=== PATIENT | male | born 1960 | race Caucasian/White ===

== ENCOUNTER 2016-09-29 19:01 | Emergency (ER) | payer MEDICARE ==
[2016-09-29 19:01] VITALS: BMI 31.6
[2016-09-29 19:46] VITALS: RESP 16
[2016-09-29 20:13] LABS: BASO # 0.1 K/uL (0.0-0.2); EOS # 0.2 K/uL (0.0-0.7); EOS % 2.4 % (0.0-4.0); HEMATOCRIT 33.1 % (35.0-51.0); LYMPH # 2.1 K/uL (1.0-4.3); LYMPH % 20.3 % (20.0-40.0); MEAN CELL VOLUME 86.1 fL (80.0-94.0); MEAN CORPUSCULAR HEMOGLOBIN 28.9 pg (27.0-31.0); MEAN CORPUSCULAR HGB CONC 33.5 g/dL (33.0-37.0); MEAN PLATELET VOLUME 9.8 fL (7.2-11.7); MONO # 0.8 K/uL (0.0-0.8); RED CELL DISTRIBUTION WIDTH 13.1 % (11.5-14.5)
[2016-09-29 20:17] LABS: WHITE BLOOD COUNT 10.4 K/uL (4.8-10.8)
[2016-09-29 20:20] LABS: POTASSIUM 5.4 mmol/L (3.6-5.2)
[2016-09-29 20:22] LABS: ALB/GLOB RATIO 1.1 (1.0-2.1); BILIRUBIN,TOTAL 0.7 mg/dL (0.2-1.3); TOTAL PROTEIN 7.4 g/dL (6.3-8.3)
[2016-09-29 20:23] LABS: CALCIUM 9.2 mg/dl (8.6-10.4)
--- NOTE | 2016-09-29 20:32 | C.PDOC ---
History Of Present Illness 56 year old patient was instructed to visit the ER by Dr. Lopez after blood work showed a 6.2 potassium level. Patient had blood work done at an outpatient clinic today. Patient denies any physical complaints. Time Seen by Provider: 09/29/16 19:38 Chief Complaint (Nursing): Abnormal Labs History Per: Patient History/Exam Limitations: no limitations Onset/Duration Of Symptoms: Hrs (earlier today) Current Symptoms Are (Timing): Still Present Severity: None Pain Scale Rating Of: 0 Reports Recently: Treated By A Physician Recent travel outside of the [place]: No Past Medical History Reviewed: Historical Data, Nursing Documentation, Vital Signs Vital Signs: Last Vital Signs Temp 98.0 F 09/29/16 19:42 Pulse 92 H 09/29/16 19:42 Resp 16 09/29/16 19:42 BP 171/97 H 09/29/16 19:42 Pulse Ox 99 09/29/16 22:25 - Medical History PMH: Arthritis (hip, arms, neck), CHF, Diabetes, Fractures (left knee 1975), HTN , Hypercholesterolemia - [facility] Procedures CENTRAL VENOUS CATHETER PLACEMENT WITH GUIDANCE (08/01/13) INSERTION OF INFUSION DEV INTO SUP VENA CAVA, PERC APPROACH (02/28/16) LOC EXC BONE LESION NEC (08/30/13) LOC EXC LES METATAR/TAR (08/01/13) METATAR/TAR SEQUESTREC (08/01/13) NONEXCIS DEBRID OF WOUND, INFECT, OR BURN (08/30/13) TOT OSTECT-METATARS/TARS (05/04/13) Family History: States: Unknown Family Hx - Social History Hx Tobacco Use: Yes (light smoker) Hx Alcohol Use: No (Quit 16 years ago) Hx Substance Use: No (Quit 16 years ago) - Immunization History Hx Tetanus Toxoid Vaccination: No Hx Influenza Vaccination: Yes Hx Pneumococcal Vaccination: Yes Review Of Systems Except As Marked, All Systems Reviewed And Found Negative. Constitutional: Negative for: Fever Respiratory: Negative for: Shortness of Breath Gastrointestinal: Negative for: Abdominal Pain Physical Exam - Physical Exam Appears: Non-toxic, No Acute Distress, Other (comfortable) Skin: Warm, Dry Head: Atraumatic, Normacephalic Neck: Normal ROM, Supple Chest: Symmetrical Cardiovascular: Rhythm Regular Respiratory: Normal Breath Sounds, No Rales, No Rhonchi, No Wheezing Gastrointestinal/Abdominal: Soft, No Tenderness Back: Normal Inspection Extremity: Normal ROM, Other (left lower extremities has a dressing on it; chronic skin discoloration) Neurological/Psych: Oriented x3, Normal Motor, Normal Sensation Gait: Steady ED Course And Treatment - Laboratory Results Result Diagrams: 09/29/16 20:08 09/29/16 20:08 ECG: Interpreted By Me, Viewed By Me ECG Rhythm: Sinus Rhythm ECG Interpretation: Normal Interpretation Of ECG: Normal axis. No acute ST-T wave changes. Rate From EC (bpm) O2 Sat by Pulse Oximetry: 99 (room air) Pulse Ox Interpretation: Normal Progress Note: EKG was done and blood work was sent. Blood work results were reviewed. Case discussed with Dr. Lopez who agrees with discharge and will follow up with the patient in his office. - Physician Consult Information Physician Contacted: Rene Lopez Jr. Outcome Of Conversation: Discussed patient with Dr. Lopez, agrees with discharge home, would like patient to hold Zestril until seeing him in the office. Disposition Counseled Patient/Family Regarding: Studies Performed, Diagnosis, Need For Followup - Disposition Referrals: Rene Lopez Jr., MD [Medical Doctor] - Disposition: HOME/ ROUTINE Disposition Time: 22:10 Condition: STABLE Additional Instructions: FOLLOW UP WITH DR LOPEZ IN 1-2 DAYS HOLD YOUR ZESTRIL MEDICATION UNTIL YOU SEE HIM RETURN TO ER IF YOU HAVE ANY CONCERNING SYMPTOMS Instructions: Hyperkalemia (ED) Print Language: KOREAN - POA Present On Arrival: None - Clinical Impression Clinical Impression: Hyperkalemia, General medical exam - Scribe Statement The provider has reviewed the documentation as recorded by the Scribe Nadya Tyson Provider Attestation: All medical record entries made by the Scribe were at my direction and personally dictated by me. I have reviewed the chart and agree that the record accurately reflects my personal performance of the history, physical exam, medical decision making, and the department course for this patient. I have also personally directed, reviewed, and agree with the discharge instructions and disposition.
[2016-09-29 22:38] VITALS: BP 171/90; PULSE 88; TEMP 98.4; O2SAT 96
--- NOTE | 2016-10-01 12:05 | CARD ---
APPROVED REPORT EKG Measurement Heart [id number] <Conclusion> Normal sinus rhythm Normal ECG
== END 2016-09-29 22:38 | disposition home or self-care (01) ==
LOC: C.ER 19:01
DX: E87.5 Hyperkalemia (principal)

== ENCOUNTER 2016-10-22 07:53 | Inpatient (IN) | payer MEDICARE ==
[2016-10-19 11:58] VITALS: BMI 30.9
[2016-10-22] MEDS ORDERED: ceFAZolin IV 1 gm in Dextrose 0 GM/0 ML BAG IVPB ONE (08:47)
[2016-10-22] MEDS ORDERED: Bupivacaine HCl 0.25% PF (10 ml) Inj ONE (08:47)
[2016-10-22] MEDS ORDERED: Lidocaine 1% Inj (20ml) ONE (08:47)
[2016-10-22] MEDS ORDERED: Propofol 10 mg/ml Inj (20 ML) ONE ×2 (09:34)
[2016-10-22] MEDS ORDERED: Midazolam 2 MG/2 ML VIAL ONE (09:34)
[2016-10-22] MEDS ORDERED: Lactated Ringer's 1,000 ML IV ONE (09:45)
[2016-10-22] MEDS ORDERED: ceFAZolin IV 2 gm in Dextrose 1 GM/50 ML BAG IVPB ONE (09:45)
[2016-10-22] MEDS ORDERED: Sodium Chloride 0.9% 20 ML IV ONE (10:20)
[2016-10-22] MEDS ORDERED: HYDROmorphone 0.5 mg/0.5 ml ISec IVP PRN (10:41)
--- NOTE | 2016-10-22 11:02 | PCM.SURG1 ---
Surgeon's Initial Post Op Note - Surgeon's Notes Surgeon: Dr. Luciano DPM Packager: Dr. Rushing DPM PGY-1 Type of Anesthesia: IV Sedation, Local Anesthesia Administered By: Dr. Starr Pre-Operative Diagnosis: left hallux osteomyelitis Operative Findings: see dictation. I:15 mL 1:1 mixture of 0.25% lidocaine, 1% marcaine plain Post-Operative Diagnosis: same Operation Performed: left hallux amputation Specimen/Specimens Removed: left hallux Estimated Blood Loss: EBL {In ML}: 5 Blood Products Given: N/A Drains Used: [place] Post-Op Condition: Good Date of Surgery/Procedure: 10/22/16 Time of Surgery/Procedure: 11:02
[2016-10-22] MEDS ORDERED: Oxycodone/Acetaminophen 5/325 mg Tab PO PRN (11:04)
--- NOTE | 2016-10-22 14:16 | RAD ---
PROCEDURE: Left Foot Radiographs. HISTORY: s/p left hallux surgery COMPARISON: 02/28/2016 FINDINGS: BONES: Status post resection of the 1st distal phalanges and the most extreme aspect of the 1st metatarsal head. The sesamoid bones are present and unremarkable appearing there is a radiopaque high density probably relating to bandaging here in a material in bandaging overlying the postop since status. Overlying dorsal and volar soft tissue swelling this mid forefoot level is suggested. There is inferior splinting material present The inferior calcaneal spurs as before JOINTS: Normal. SOFT TISSUES: Normal. OTHER FINDINGS: None. IMPRESSION: Recent postop changes
--- NOTE | 2016-10-22 14:44 | PCM.OP ---
Operative Report - Operative Report Date of Surgery/Procedure: 10/22/16 Time of Surgery/Procedure: 09:45 Surgeon: Dr. Mustapha SOTO Electrician Outside: Dr. Kristan SOTO PGY-1 Anesthesia/Sedation: Dr. Starr/IV Sedation with local Pre-Operative Diagnosis: left hallux osteomyelitis Post-Operative Diagnosis: left hallux osteomyelitis Indication for Surgery: The patient is a 56 year-old male with the above diagnoses. The patient has exhausted all conservative treatment at this time and now requires surgical intervention. The patient signed the consent after careful explanation of risks, benefits, complication and alternatives for surgical procedure. No guarantees were given nor implied. Operative Findings: Preparation: The patient was brought in to the operating room and placed on the operating room table in a supine position. Timeout was performed for identification of the correct patient and procedure. After induction of IV sedation, the patient received a total of 15mL of 1:1 mixture of 1% lidocaine plain and 0.25% marcaine plain in a local block type fashion to the left 1st ray. Once local anesthesia was achieved, the left foot and ankle was then prepped and draped in normal sterile manner. Procedure 1:Left hallux amputation. Attention was directed to the left hallux where an incision was made circumferentially at the level of the 1st metatarsophalangeal joint using a #10 blade. The incision was then extended down through the subcutaneous layers down to the level of bone utilizing electrocaudry. The 1st digit was then disarticulated from the foot at the level of the 1st metatarsophalangeal joint. This specimen was then passed from the operative field and sent to pathology. Next,utilising a sagittal saw, the proximal aspect of the 1st metatarsal head was then resected and passed from the operative field and sent for pathology. The tendons were then transected at the level of the 1st MPJ and excised. The surgical site was then irrigated with copious amounts of normal sterile saline mixed with peroxide. All bleeders were ligated and cauterized as necessary. The subcutaneous tissue was reapproximated with #0 and #2-0 chromic, and skin layers were then re-approximated and using #3-0 nylon using a simple suture technique. The left foot was then dressed with xeroform, 4x4 gauze, then kerlix, and lastly ALCON. Procedure/Operation Description: left hallux amputation Estimated Blood Loss: 5 mL Complications: none Discharge & Condition: The patient tolerated the anesthesia and procedure well and was escorted to the recovery room with vital signs stable and neurovascular status intact to the left foot. Patient is to remain non-weight bearing to the left foot with a surgical shoe and walker. This patient will be follow in house by Dr. Luciano.
[2016-10-22] MEDS: (Novolin R) Insulin Human Regular 100 units/ml vial SC SCH ×2 (17:25→22:05)
--- NOTE | 2016-10-22 19:45 | CP.PCM.HP ---
History of Present Illness - History of Present Illness History of Present Illness: CC: post-op left hallux amputation HPI: 56 year old male with a past medical history of CHF, DM, HTN, Afib, hyperlipidemia, [place], and DVT, is post-op for left hallux amputation. Patient reports having osteomyelitis of the left hallux for about 6 to 7 months. He currently reports having no pain in his leg. Patient states his left lower extremity has been red and edematous (more than the right) for months due to the infection. He also reports his legs are edematous regularly. Patient denies symptoms of fevers, chills, headache, dizziness, chest pain, palpitations, abdominal pain, nausea, and vomiting. PMD: Dr. Dewitt PMHx: [place] (2015); DVT (2006), HTN, DM, HTN, CHF, HLD, Afib PSx: "about 13 surgeries on right foot"; FamHx: Mother- Breast cancer SocHx: tobacco/smoker (15 years); denies alcohol and drug use; lives with and children; retired Allergies: Vancomycin- anaphylasis Medications: Xarelto 20mg daily, ASA 81mg PO dialy, Imdur 60mg daily, Coreg 6.25mg PO BID, Januvet BID, Lyrica 75mg PO BID, Ambien 10mg daily, Percocet 10mg TID, Oxycontin 10mg BID, Toujeo 50 units daily, Mirapex 0.125mg HS. Present on Admission - Present on Admission Any Indicators Present on Admission: Yes History of DVT/PE: Yes Review of Systems - Constitutional Constitutional: absent: Headache, Weakness - EENT Eyes: absent: Change in Vision, Other Visual Disturbances Nose/Mouth/Throat: Dysphagia. absent: Sore Throat - Cardiovascular Cardiovascular: Leg Edema. absent: Chest Pain, Palpitations - Respiratory Respiratory: absent: Cough, Dyspnea - Gastrointestinal Gastrointestinal: absent: Abdominal Pain, Nausea, Vomiting - Musculoskeletal Musculoskeletal: Numbness (feet b/l), Tingling - Integumentary Integumentary: Swelling. absent: Rash - Neurological Neurological: Numbness. absent: Dizziness, Weakness - Endocrine Endocrine: absent: Fatigue, Palpitations - Hematologic/Lymphatic Hematologic: absent: Easy Bleeding, Easy Bruising Past Patient History - Infectious Disease Hx of Infectious Diseases: None - Past Medical History & Family History Past Medical History?: Yes - Past Social History Smoking Status: Heavy Smoker > 10 Cigarettes Daily - CARDIAC Hx Cardiac Disorders: Yes Hx Congestive Heart Failure: Yes Hx Heart Attack: Yes (2014) Hx Hypercholesterolemia: Yes Hx Hypertension: Yes Hx Peripheral Vascular Disease: Yes Other/Comment: HX: IVC FILTER-CLOT IN LEFT CALF AND LUNG - PULMONARY Hx Respiratory Disorders: Yes Hx Pulmonary Embolism: Yes (CT SCAN 03/11/17-LEFT LOWER LOBE) Other/Comment: LIGHT SMOKER - NEUROLOGICAL Hx Neurological Disorder: Yes Hx Paralysis: Yes (drop foot, left leg) - HEENT Hx HEENT Problems: No Other/Comment: wears glasses - RENAL Hx Chronic Kidney Disease: No - ENDOCRINE/METABOLIC Hx Endocrine Disorders: Yes Hx Diabetes Mellitus Type 1: Yes Hx Diabetes Mellitus Type 2: Yes - HEMATOLOGICAL/ONCOLOGICAL Hx Blood Disorders: No - INTEGUMENTARY Hx Dermatological Problems: Yes Other/Comment: Right foot ulcer - MUSCULOSKELETAL/RHEUMATOLOGICAL Hx Musculoskeletal Disorders: Yes Hx Arthritis: Yes (hip, arms, neck) Hx Back Pain: Yes Hx Falls: No Hx Fractures: Yes (left knee 1974) Hx Herniated Disk: Yes (lumbar x2, cervical x3) Hx Osteomyelitis: Yes (right foot) Other/Comment: torn LCL left knee. left hip seperation. rotator cuff seperated left shoulder - GASTROINTESTINAL Hx Gastrointestinal Disorders: No - GENITOURINARY/GYNECOLOGICAL Hx Genitourinary Disorders: No - PSYCHIATRIC Hx Psychophysiologic Disorder: No Hx Substance Use: No (Quit 16 years ago) - SURGICAL HISTORY Hx Surgeries: Yes Hx Cardiac Catheterization: Yes (2012 [facility]) Hx Orthopedic Surgery: Yes (removal of bones in right foot 04/2013 & 2011) Other/Comment: right Ulnar Collateral Ligament construction 1975,Vena Cava Filter to L LE,Lumbar Surgery in [facility],R foot Surgery by Dr.Den Castle - ANESTHESIA Hx Anesthesia: Yes Hx Anesthesia Reactions: No Hx Malignant Hyperthermia: No Has any member of the family had a problem w/ anesthesia?: No Meds Allergies/Adverse Reactions: Allergies Allergy/AdvReac Type Severity Reaction Status Date / Time vancomycin Allergy Severe SHORTNESS Verified 09/29/16 19:46 OF BREATH Physical Exam - Constitutional Appears: No Acute Distress - Head Exam Head Exam: NORMAL INSPECTION - Eye Exam Eye Exam: EOMI, Normal appearance - ENT Exam ENT Exam: Mucous Membranes Moist - Neck Exam Neck exam: Positive for: Normal Inspection - Respiratory Exam Respiratory Exam: Decreased Breath Sounds, NORMAL BREATHING PATTERN. absent: Rhonchi, Wheezes - Cardiovascular Exam Cardiovascular Exam: +S1, +S2 - GI/Abdominal Exam GI & Abdominal Exam: Normal Bowel Sounds, Soft. absent: Tenderness - Extremities Exam Extremities exam: Positive for: pedal edema (b/l). Negative for: normal inspection (LLE- erythematous, edematous) Additional comments: Neuropathy- feet b/l - Neurological Exam Neurological exam: Alert, Oriented x3 - Psychiatric Exam Psychiatric exam: Normal Affect, Normal Mood - Skin Skin Exam: Dry, Erythema (LLE- erythematous, edematous), Intact, Normal Color, Warm Results - Vital Signs Recent Vital Signs: Last Vital Signs Temp 98.4 F 10/22/16 15:45 Pulse 78 10/22/16 15:45 Resp 12 10/22/16 15:45 BP 136/82 10/22/16 15:45 Pulse Ox 98 10/22/16 15:45 - Labs Labs: Laboratory Results - last 24 hr 10/22/16 10/22/16 10/22/16 08:49 11:16 16:29 POC Glucose (mg/dL) 276 H 245 H 239 H Assessment & Plan (1) History of amputation of hallux Assessment and Plan: Patient is stable post-surgical amputation of left hallux on 10/22/16. Post-op shoe in place Weight bearing activity ordered Surgeon- Dr. Del Toro, help appreciated. F/U AM labs Status: Acute (2) Osteomyelitis of left foot Assessment and Plan: Patient is stable post-surgical amputation of left hallux on 10/22/16. Post-op shoe in place as per podiatry Weight bearing activity ordered as per podiatry Surgeon- Dr. Del Toro, help appreciated. Post-op foot xray- status post resection of 1st distal phalanges and most extreme aspect of 1st metatarsal head. Status: Acute (3) CHF (congestive heart failure) Assessment and Plan: Continue home medications as per Dr. Dewitt, no Lasix at this time. Coreg 6.25mg PO BID Status: Acute (4) A-fib Assessment and Plan: Monitor ASA 81mg PO daily Xarelto 20mg PO daily Continue home medications as per Dr. Dewitt Status: Acute (5) Diabetes Assessment and Plan: Continue home medications as per Dr. Dewitt Monitor HgbA1c Accuchecks QACHS Januvet BID Toujeo 50 units daily ISS SC ACHS Metformin 1000mg PO BID Mirapex 0.125mg at HS and Lyrica 75mg PO BID for neuropathy Status: Acute (6) Hypertension Assessment and Plan: Controlled As per Dr. Dewitt, continue home medication: Coreg 6.25mg PO BID, Imdur 60mg daily Monitor BP Status: Acute (7) Chronic pain Assessment and Plan: Continue home medications as per Dr. Dewitt Percocet 10mg TID Oxycontin 10mg BID Status: Acute (8) Insomnia Assessment and Plan: Continue home medication as per Dr. Dewitt Ambien 10mg PO daily Status: Acute (9) History of DVT (deep vein thrombosis) Assessment and Plan: Continue home medications as per Dr. Dewitt Xarelto 20mg daily ASA 81mg PO daily Patient has a hx of DVT in 2006; IVF in place Status: Acute (10) Prophylactic measure Assessment and Plan: IVC filter in place Continue home medication- ASA 81mg PO Daily, Xarelto 20mg PO daily Pepcid 20mg PO daily Heart healthy diet- consistent carbohydrate Weight bearing activity ordered as per Podiatry Status: Acute
[2016-10-22] MEDS: Lactated Ringer's 1,000 ML IV SCH (21:25)
[2016-10-23 07:33] LABS: BASO % 0.5 % (0.0-2.0); EOS # 0.1 K/uL (0.0-0.7); EOS % 1.2 % (0.0-4.0); LYMPH # 1.1 K/uL (1.0-4.3); LYMPH % 10.7 % (20.0-40.0); MEAN CELL VOLUME 86.3 fL (80.0-94.0); MEAN CORPUSCULAR HEMOGLOBIN 28.9 pg (27.0-31.0); MEAN CORPUSCULAR HGB CONC 33.4 g/dL (33.0-37.0); MEAN PLATELET VOLUME 10.5 fL (7.2-11.7); MONO # 1.1 K/uL (0.0-0.8); MONO % 10.9 % (0.0-10.0); RED CELL DISTRIBUTION WIDTH 13.2 % (11.5-14.5); WHITE BLOOD COUNT 10.1 K/uL (4.8-10.8)
[2016-10-23 08:29] LABS: CHLORIDE 109 mmol/L (98-107)
[2016-10-23 08:30] LABS: POTASSIUM 4.5 mmol/L (3.6-5.2); SODIUM 139 mmol/L (132-148)
[2016-10-23] MEDS: (Novolin R) Insulin Human Regular 100 units/ml vial SC SCH ×4 (08:30→22:20)
[2016-10-23 08:32] LABS: BILIRUBIN,TOTAL 0.4 mg/dL (0.2-1.3); CARBON DIOXIDE 21 mmol/L (22-30); GFR AFRICAN-AMERICAN > 60
[2016-10-23 08:33] LABS: ALB/GLOB RATIO 0.9 (1.0-2.1); ALKALINE PHOSPHATASE 92 U/L (38-126); ALT/SGPT 12 U/L (21-72); AST/SGOT 14 U/L (17-59); BLOOD UREA NITROGEN 22 mg/dL (9-20); CALCIUM 8.6 mg/dl (8.6-10.4); GLUCOSE,RANDOM 221 mg/dL (75-110); PHOSPHOROUS 3.1 mg/dL (2.5-4.5)
[2016-10-23 08:34] LABS: MAGNESIUM 1.3 mg/dL (1.6-2.3)
[2016-10-23] MEDS: Oxycodone/Acetaminophen 5/325 mg Tab PO PRN ×2 (09:44→22:34)
[2016-10-23] MEDS ORDERED: (Lantus) Insulin Glargine, Recombinant SC SCH (10:00)
--- NOTE | 2016-10-23 14:28 | CP.PCM.PN ---
<Clarissa Johnson - Last Filed: 10/23/16 16:24> Subjective - Date & Time of Evaluation Date of Evaluation: 10/23/16 Time of Evaluation: 14:25 - Subjective Subjective: Medicine Progress Note- Dr. Dewitt Service Patient was seen and examined at [facility] in no acute distress. Patient reports feeling well with no complaints. He reports feeling an "electric shock" at his amputation site a few times this morning. He also reports his right leg is less swollen than previously. Patient reports having a normal bowel movement today. Patient denies chest pain, palpitations, abdominal pain, nausea, vomiting, diarrhea, constipation, and fever. Objective - Vital Signs/Intake and Output Vital Signs (last 24 hours): Temp Pulse Resp BP Pulse Ox 99.1 F 88 20 149/79 94 L 10/23/16 07:00 10/23/16 07:00 10/23/16 07:00 10/23/16 07:00 10/23/16 07:00 Intake and Output: 10/23/16 10/23/16 06:59 18:59 Output Total 900 Balance -900 - Medications Medications: Current Medications Acetaminophen (Tylenol 325mg Tab) 650 mg PO Q6 PRN PRN Reason: Pain, Mild (1-3) Aspirin (Aspirin Chewable) 81 mg PO DAILY [facility] Last Admin: 10/23/16 09:33 Dose: 81 mg Carvedilol (Coreg) 6.25 mg PO BID [facility] Last Admin: 10/23/16 09:33 Dose: 6.25 mg Famotidine (Pepcid) 20 mg PO DAILY [facility] Last Admin: 10/23/16 09:33 Dose: 20 mg Lactated Ringer's (Lactated Ringer's) 1,000 mls @ 50 mls/hr IV .Q20H [facility] Last Admin: 10/22/16 21:25 Dose: 50 mls/hr Insulin Glargine (Lantus) 50 unit SC HS [facility] Insulin Human Regular (Novolin R) 0 unit SC ACHS [facility] PRN Reason: Protocol Last Admin: 10/23/16 12:45 Dose: 1 unit Isosorbide Mononitrate (Imdur) 60 mg PO DAILY [facility] Last Admin: 10/23/16 09:33 Dose: 60 mg Metformin HCl (Glucophage) 1,000 mg PO BID [facility] Last Admin: 10/23/16 09:33 Dose: 1,000 mg Oxycodone/Acetaminophen (Percocet 5/325 Mg Tab) 1 tab PO Q6H PRN PRN Reason: Pain, moderate (4-7) Stop: 10/25/16 11:05 Oxycodone/Acetaminophen (Percocet 5/325 Mg Tab) 2 tab PO Q6H PRN PRN Reason: Pain, severe (8-10) Stop: 10/25/16 11:05 Last Admin: 10/23/16 09:44 Dose: 2 tab Pramipexole Dihydrochloride (Mirapex) 0.125 mg PO HS [facility] Last Admin: 10/22/16 22:06 Dose: 0.125 mg Pregabalin (Lyrica) 75 mg PO BID [facility] Last Admin: 10/23/16 09:46 Dose: 75 mg Rivaroxaban (Xarelto) 20 mg PO DAILY [facility] Last Admin: 10/23/16 10:56 Dose: 20 mg Sitagliptin Phosphate (Januvia) 50 mg PO BID [facility] Last Admin: 10/23/16 09:32 Dose: 50 mg Zolpidem Tartrate (Ambien) 5 mg PO HS PRN PRN Reason: Insomnia - Labs Labs: 10/23/16 07:20 10/23/16 07:20 - Constitutional Appears: No Acute Distress - Head Exam Head Exam: NORMAL INSPECTION, NORMOCEPHALIC - Eye Exam Eye Exam: EOMI, Normal appearance - ENT Exam ENT Exam: Mucous Membranes Moist - Neck Exam Neck Exam: Full ROM, Normal Inspection - Respiratory Exam Respiratory Exam: Decreased Breath Sounds, NORMAL BREATHING PATTERN. absent: Rhonchi, Wheezes - Cardiovascular Exam Cardiovascular Exam: Irregular Rhythm, +S1, +S2 - GI/Abdominal Exam GI & Abdominal Exam: Soft, Normal Bowel Sounds. absent: Tenderness - Extremities Exam Extremities Exam: Pedal Edema (B/L), Tenderness (right LE). absent: Calf Tenderness - Neurological Exam Neurological Exam: Alert, Awake, Oriented x3 - Psychiatric Exam Psychiatric exam: Normal Affect, Normal Mood - Skin Skin Exam: Dry, Intact, Warm. absent: Normal Color (erythematous on right LE) Assessment and Plan (1) History of amputation of hallux Assessment & Plan: Patient is stable post-surgical amputation of left hallux on 10/23/16. Post-op shoe in place Weight bearing activity ordered- non-weight bearing Surgeon- Dr. Del Toro, help appreciated. Post-op foot xray- status post resection of 1st distal phalanges and most extreme aspect of 1st metatarsal head. As per Katey, may start antibiotics Status: Acute (2) Osteomyelitis of left foot Assessment & Plan: Patient is stable post-surgical amputation of left hallux on 10/23/16. Post-op shoe in place as per podiatry Weight bearing activity ordered as per podiatry- non weight bearing Surgeon- Dr. Del Toro, help appreciated. Post-op foot xray- status post resection of 1st distal phalanges and most extreme aspect of 1st metatarsal head. As per Katey, may start antibiotics Status: Acute (3) CHF (congestive heart failure) Assessment & Plan: Continue home medications as per Dr. Dewitt, no Lasix at this time. Coreg 6.25mg PO BID Status: Acute (4) A-fib Assessment & Plan: Monitor ASA 81mg PO daily Xarelto 20mg PO daily Continue home medications as per Dr. Dewitt Status: Acute (5) Diabetes Assessment & Plan: Continue home medications as per Dr. Dewitt HgbA1c 10.5 Accuchecks QACHS Januvet BID Toujeo 50 units HS (change on 10/23/16 from daily to HS) ISS SC ACHS Metformin 1000mg PO BID Mirapex 0.125mg at HS and Lyrica 75mg PO BID for neuropathy Status: Acute (6) Hypertension Assessment & Plan: Controlled BP 10/23/16 - 149/[address] Dewitt, continue home medication: Coreg 6.25mg PO BID, Imdur 60mg daily Monitor BP Status: Acute (7) Chronic pain Assessment & Plan: Continue home medications as per Dr. Dewitt Percocet 10mg TID Oxycontin 10mg BID Status: Acute (8) Insomnia Assessment & Plan: Continue home medication as per Dr. Dewitt Ambien 10mg PO daily Status: Acute (9) History of DVT (deep vein thrombosis) Assessment & Plan: Continue home medications as per Dr. Dewitt Xarelto 20mg daily ASA 81mg PO daily Patient has a hx of DVT in 2006; IVF in place Status: Acute (10) Prophylactic measure Assessment & Plan: IVC filter in place Continue home medication- ASA 81mg PO Daily, Xarelto 20mg PO daily Pepcid 20mg PO daily Heart healthy diet- consistent carbohydrate Weight bearing activity ordered- non weight bearing as per Podiatry Status: Acute <Rene Dewitt Jr. - Last Filed: 11/03/16 10:07> Objective - Vital Signs/Intake and Output Vital Signs (last 24 hours): Temp Pulse Resp BP Pulse Ox 98 F 80 18 163/86 H 95 10/26/16 07:45 10/26/16 07:45 10/26/16 07:45 10/26/16 07:45 10/26/16 07:45 - Labs Labs: 10/26/16 09:14 10/26/16 09:22 Attending/Attestation - Attestation I have personally seen and examined this patient.: Yes I have fully participated in the care of the patient.: Yes I have reviewed all pertinent clinical information, including history, physical exam and plan: Yes Notes (Text): 11/03/16 10:07 Agree with resident note and findings
[2016-10-23] MEDS: (Lantus) Insulin Glargine, Recombinant SC SCH (22:22)
[2016-10-24] MEDS: Lactated Ringer's 1,000 ML IV SCH (03:09)
[2016-10-24 07:37] LABS: BASO # 0.1 K/uL (0.0-0.2); BASO % 0.9 % (0.0-2.0); EOS # 0.3 K/uL (0.0-0.7); LYMPH # 1.5 K/uL (1.0-4.3); LYMPH % 17.3 % (20.0-40.0); MEAN CELL VOLUME 86.5 fL (80.0-94.0); MEAN CORPUSCULAR HEMOGLOBIN 28.8 pg (27.0-31.0); MEAN CORPUSCULAR HGB CONC 33.3 g/dL (33.0-37.0); MEAN PLATELET VOLUME 10.3 fL (7.2-11.7); RED CELL DISTRIBUTION WIDTH 13.2 % (11.5-14.5); WHITE BLOOD COUNT 8.7 K/uL (4.8-10.8)
[2016-10-24] MEDS: (Novolin R) Insulin Human Regular 100 units/ml vial SC SCH ×3 (07:50→21:49)
[2016-10-24 08:05] LABS: CHLORIDE 105 mmol/L (98-107); POTASSIUM 4.1 mmol/L (3.6-5.2); SODIUM 135 mmol/L (132-148)
[2016-10-24 08:07] LABS: AST/SGOT 13 U/L (17-59); BILIRUBIN,TOTAL 0.4 mg/dL (0.2-1.3); CARBON DIOXIDE 24 mmol/L (22-30); GFR AFRICAN-AMERICAN > 60
[2016-10-24 08:08] LABS: ALKALINE PHOSPHATASE 91 U/L (38-126); ALT/SGPT 19 U/L (21-72); BLOOD UREA NITROGEN 21 mg/dL (9-20); CALCIUM 8.6 mg/dl (8.6-10.4); GLUCOSE,RANDOM 168 mg/dL (75-110); PHOSPHOROUS 3.9 mg/dL (2.5-4.5); TOTAL PROTEIN 6.1 g/dL (6.3-8.3)
[2016-10-24 08:09] LABS: MAGNESIUM 1.3 mg/dL (1.6-2.3)
--- NOTE | 2016-10-24 08:34 | CP.PCM.PN ---
<David Gomes - Last Filed: 10/24/16 08:32> Subjective - Date & Time of Evaluation Date of Evaluation: 10/24/16 Time of Evaluation: 06:55 - Subjective Subjective: Medicine Progress Note- Dr. Dewitt Service Patient was seen and examined at [facility] in no acute distress. Patient reports feeling well with no complaints. He reports his right leg is less swollen than previously. He's not experiencing any pain. Patient reports having a normal bowel movement today. Patient denies chest pain, palpitations, abdominal pain, nausea, vomiting, diarrhea, constipation, and fever. Objective - Vital Signs/Intake and Output Vital Signs (last 24 hours): Temp Pulse Resp BP Pulse Ox 97.8 F 85 20 161/81 H 94 L 10/23/16 23:45 10/23/16 23:45 10/23/16 23:45 10/23/16 23:45 10/23/16 23:45 Intake and Output: 10/24/16 10/24/16 06:59 18:59 Output Total 300 Balance -300 - Medications Medications: Current Medications Acetaminophen (Tylenol 325mg Tab) 650 mg PO Q6 PRN PRN Reason: Pain, Mild (1-3) Aspirin (Aspirin Chewable) 81 mg PO DAILY [facility] Last Admin: 10/23/16 09:33 Dose: 81 mg Carvedilol (Coreg) 6.25 mg PO BID [facility] Last Admin: 10/23/16 17:46 Dose: 6.25 mg Famotidine (Pepcid) 20 mg PO DAILY [facility] Last Admin: 10/23/16 09:33 Dose: 20 mg Lactated Ringer's (Lactated Ringer's) 1,000 mls @ 50 mls/hr IV .Q20H [facility] Last Admin: 10/24/16 03:09 Dose: Not Given Insulin Glargine (Lantus) 50 unit SC HS [facility] Last Admin: 10/23/16 22:22 Dose: 50 u Insulin Human Regular (Novolin R) 0 unit SC ACHS [facility] PRN Reason: Protocol Last Admin: 10/24/16 07:50 Dose: 1 unit Isosorbide Mononitrate (Imdur) 60 mg PO DAILY [facility] Last Admin: 10/23/16 09:33 Dose: 60 mg Metformin HCl (Glucophage) 1,000 mg PO BID [facility] Last Admin: 10/23/16 17:47 Dose: 1,000 mg Oxycodone/Acetaminophen (Percocet 5/325 Mg Tab) 1 tab PO Q6H PRN PRN Reason: Pain, moderate (4-7) Stop: 10/25/16 11:05 Oxycodone/Acetaminophen (Percocet 5/325 Mg Tab) 2 tab PO Q6H PRN PRN Reason: Pain, severe (8-10) Stop: 10/25/16 11:05 Last Admin: 10/23/16 22:34 Dose: 2 tab Pramipexole Dihydrochloride (Mirapex) 0.125 mg PO HS [facility] Last Admin: 10/23/16 23:11 Dose: 0.125 mg Pregabalin (Lyrica) 75 mg PO BID [facility] Last Admin: 10/23/16 17:46 Dose: 75 mg Rivaroxaban (Xarelto) 20 mg PO DAILY [facility] Last Admin: 10/23/16 10:56 Dose: 20 mg Sitagliptin Phosphate (Januvia) 50 mg PO BID [facility] Last Admin: 10/23/16 17:48 Dose: 50 mg Zolpidem Tartrate (Ambien) 5 mg PO HS PRN PRN Reason: Insomnia Last Admin: 10/23/16 23:11 Dose: 5 mg - Labs Labs: 10/24/16 07:21 10/24/16 07:21 - Constitutional Appears: Well, Non-toxic, No Acute Distress - Head Exam Head Exam: NORMAL INSPECTION - Eye Exam Eye Exam: Normal appearance - ENT Exam ENT Exam: Mucous Membranes Moist - Neck Exam Neck Exam: Normal Inspection - Respiratory Exam Respiratory Exam: Clear to Ausculation Bilateral, NORMAL BREATHING PATTERN - Cardiovascular Exam Cardiovascular Exam: REGULAR RHYTHM - GI/Abdominal Exam GI & Abdominal Exam: Normal Bowel Sounds - Rectal Exam Rectal Exam: Deferred - Extremities Exam Extremities Exam: Pedal Edema, Tenderness - Neurological Exam Neurological Exam: Alert, Awake, Oriented x3 - Psychiatric Exam Psychiatric exam: Normal Affect, Normal Mood - Skin Skin Exam: Dry, Intact, Normal Color, Warm Assessment and Plan - Assessment and Plan (Free Text) Assessment: (1) History of amputation of hallux Assessment & Plan: Patient is stable post-surgical amputation of left hallux on 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 Post-op shoe in place Weight bearing activity ordered- non-weight bearing Surgeon- Dr. Del Toro, help appreciated. Post-op foot xray- status post resection of 1st distal phalanges and most extreme aspect of 1st metatarsal head. As per Katey, may start antibiotics Status: Acute (2) Osteomyelitis of left foot Assessment & Plan: Patient is stable post-surgical amputation of left hallux on 10/23/16. Post-op shoe in place as per podiatry Weight bearing activity ordered as per podiatry- non weight bearing Surgeon- Dr. Del Toro, help appreciated. Post-op foot xray- status post resection of 1st distal phalanges and most extreme aspect of 1st metatarsal head. As per Katey, may start antibiotics Status: Acute (3) CHF (congestive heart failure) Assessment & Plan: Continue home medications as per Dr. Dewitt, no Lasix at this time. Coreg 6.25mg PO BID Status: Acute (4) A-fib Assessment & Plan: Monitor ASA 81mg PO daily Xarelto 20mg PO daily Continue home medications as per Dr. Dewitt Status: Acute (5) Diabetes Assessment & Plan: Continue home medications as per Dr. Dewitt HgbA1c 10.5 Accuchecks QACHS Januvet BID Toujeo 50 units HS (change on 10/23/16 from daily to HS) ISS SC ACHS Metformin 1000mg PO BID Mirapex 0.125mg at HS and Lyrica 75mg PO BID for neuropathy Status: Acute (6) Hypertension Assessment & Plan: Controlled BP 10/23/16 - 149/[address] Dewitt, continue home medication: Coreg 6.25mg PO BID, Imdur 60mg daily Monitor BP Status: Acute (7) Chronic pain Assessment & Plan: Continue home medications as per Dr. Dewitt Percocet 10mg TID Oxycontin 10mg BID Status: Acute (8) Insomnia Assessment & Plan: Continue home medication as per Dr. Dewitt Ambien 10mg PO daily Status: Acute (9) History of DVT (deep vein thrombosis) Assessment & Plan: Continue home medications as per Dr. Dewitt Xarelto 20mg daily ASA 81mg PO daily Patient has a hx of DVT in 2006; IVF in place Status: Acute (10) Prophylactic measure Assessment & Plan: IVC filter in place Continue home medication- ASA 81mg PO Daily, Xarelto 20mg PO daily Pepcid 20mg PO daily Heart healthy diet- consistent carbohydrate Weight bearing activity ordered- non weight bearing as per Podiatry Status: Acute <Rene Dewitt Jr. - Last Filed: 11/03/16 10:11> Objective - Vital Signs/Intake and Output Vital Signs (last 24 hours): Temp Pulse Resp BP Pulse Ox 98 F 80 18 163/86 H 95 10/26/16 07:45 10/26/16 07:45 10/26/16 07:45 10/26/16 07:45 10/26/16 07:45 - Labs Labs: 10/26/16 09:14 10/26/16 09:22 Attending/Attestation - Attestation I have personally seen and examined this patient.: Yes I have fully participated in the care of the patient.: Yes I have reviewed all pertinent clinical information, including history, physical exam and plan: Yes Notes (Text): 11/03/16 10:11 Agree with resident note and findings
[2016-10-24] MEDS: Oxycodone/Acetaminophen 5/325 mg Tab PO PRN (10:18)
[2016-10-24] MEDS: (Lantus) Insulin Glargine, Recombinant SC SCH (21:48)
--- NOTE | 2016-10-25 02:54 | CP.PCM.PN ---
<David Gomes - Last Filed: 10/25/16 15:27> Subjective - Date & Time of Evaluation Date of Evaluation: 10/25/16 Time of Evaluation: 06:55 - Subjective Subjective: Medicine Progress Note- Dr. Dewitt Service Patient was seen and examined at [facility] in no acute distress. Patient reports feeling well with no complaints. He reports his right leg is less swollen than previously. He's not experiencing any pain. Patient reports having a normal bowel movement today. Patient denies chest pain, palpitations, abdominal pain, nausea, vomiting, diarrhea, constipation, and fever. Objective - Vital Signs/Intake and Output Vital Signs (last 24 hours): Temp Pulse Resp BP Pulse Ox 98.2 F 77 20 133/76 98 10/24/16 23:55 10/24/16 23:55 10/24/16 23:55 10/24/16 23:55 10/24/16 23:55 - Medications Medications: Current Medications Acetaminophen (Tylenol 325mg Tab) 650 mg PO Q6 PRN PRN Reason: Pain, Mild (1-3) Aspirin (Aspirin Chewable) 81 mg PO DAILY [facility] Last Admin: 10/24/16 10:03 Dose: 81 mg Carvedilol (Coreg) 6.25 mg PO BID [facility] Last Admin: 10/24/16 10:03 Dose: 6.25 mg Famotidine (Pepcid) 20 mg PO DAILY [facility] Last Admin: 10/24/16 10:03 Dose: 20 mg Lactated Ringer's (Lactated Ringer's) 1,000 mls @ 50 mls/hr IV .Q20H [facility] Last Admin: 10/24/16 03:09 Dose: Not Given Insulin Glargine (Lantus) 50 unit SC HS [facility] Last Admin: 10/24/16 21:48 Dose: 50 u Insulin Human Regular (Novolin R) 0 unit SC ACHS [facility] PRN Reason: Protocol Last Admin: 10/24/16 21:49 Dose: Not Given Isosorbide Mononitrate (Imdur) 60 mg PO DAILY [facility] Last Admin: 10/24/16 10:04 Dose: 60 mg Metformin HCl (Glucophage) 1,000 mg PO BID [facility] Last Admin: 10/24/16 10:04 Dose: 1,000 mg Oxycodone/Acetaminophen (Percocet 5/325 Mg Tab) 1 tab PO Q6H PRN PRN Reason: Pain, moderate (4-7) Stop: 10/25/16 11:05 Oxycodone/Acetaminophen (Percocet 5/325 Mg Tab) 2 tab PO Q6H PRN PRN Reason: Pain, severe (8-10) Stop: 10/25/16 11:05 Last Admin: 10/24/16 10:18 Dose: 2 tab Pramipexole Dihydrochloride (Mirapex) 0.125 mg PO HS [facility] Last Admin: 10/24/16 21:50 Dose: 0.125 mg Pregabalin (Lyrica) 75 mg PO BID [facility] Last Admin: 10/24/16 10:04 Dose: 75 mg Rivaroxaban (Xarelto) 20 mg PO DAILY [facility] Last Admin: 10/24/16 10:03 Dose: 20 mg Sitagliptin Phosphate (Januvia) 50 mg PO BID [facility] Last Admin: 10/24/16 10:04 Dose: 50 mg Zolpidem Tartrate (Ambien) 5 mg PO HS PRN PRN Reason: Insomnia Last Admin: 10/24/16 22:31 Dose: 5 mg - Labs Labs: 10/24/16 07:21 10/24/16 07:21 - Constitutional Appears: Well, Non-toxic, No Acute Distress - Head Exam Head Exam: NORMAL INSPECTION - Eye Exam Eye Exam: Normal appearance - ENT Exam ENT Exam: Mucous Membranes Moist - Neck Exam Neck Exam: Normal Inspection - Respiratory Exam Respiratory Exam: Clear to Ausculation Bilateral, NORMAL BREATHING PATTERN - Cardiovascular Exam Cardiovascular Exam: REGULAR RHYTHM, RRR, +S1, +S2 - GI/Abdominal Exam GI & Abdominal Exam: Soft, Normal Bowel Sounds - Rectal Exam Rectal Exam: Deferred - Extremities Exam Additional comments: gauze clean/dry/intact - Neurological Exam Neurological Exam: Alert, Awake, Oriented x3 - Psychiatric Exam Psychiatric exam: Normal Affect, Normal Mood - Skin Skin Exam: Dry, Intact, Normal Color, Warm Assessment and Plan - Assessment and Plan (Free Text) Assessment: Disposition: Waiting to go to subacute rehab (1) History of amputation of hallux Assessment & Plan: Patient is stable post-surgical amputation of left hallux on 10/23/16. Post-op shoe in place Weight bearing activity ordered- non-weight bearing Surgeon- Dr. Del Toro, help appreciated. Post-op foot xray- status post resection of 1st distal phalanges and most extreme aspect of 1st metatarsal head. As per Katey, may start antibiotics Status: Acute (2) Osteomyelitis of left foot Assessment & Plan: Patient is stable post-surgical amputation of left hallux on 10/23/16. Post-op shoe in place as per podiatry Weight bearing activity ordered as per podiatry- non weight bearing Surgeon- Dr. Del Toro, help appreciated. Post-op foot xray- status post resection of 1st distal phalanges and most extreme aspect of 1st metatarsal head. As per Katey, may start antibiotics Status: Acute (3) CHF (congestive heart failure) Assessment & Plan: Continue home medications as per Dr. Dewitt, no Lasix at this time. Coreg 6.25mg PO BID Status: Acute (4) A-fib Assessment & Plan: Monitor ASA 81mg PO daily Xarelto 20mg PO daily Continue home medications as per Dr. Dewitt Status: Acute (5) Diabetes Assessment & Plan: Continue home medications as per Dr. Dewitt HgbA1c 10.5 Accuchecks QACHS Januvet BID Toujeo 50 units HS (change on 10/23/16 from daily to HS) ISS SC ACHS Metformin 1000mg PO BID Mirapex 0.125mg at HS and Lyrica 75mg PO BID for neuropathy Status: Acute (6) Hypertension Assessment & Plan: Controlled BP 10/23/16 - 149/[address] Dewitt, continue home medication: Coreg 6.25mg PO BID, Imdur 60mg daily Monitor BP Status: Acute (7) Chronic pain Assessment & Plan: Continue home medications as per Dr. Dewitt Percocet 10mg TID Oxycontin 10mg BID Status: Acute (8) Insomnia Assessment & Plan: Continue home medication as per Dr. Dewitt Ambien 10mg PO daily Status: Acute (9) History of DVT (deep vein thrombosis) Assessment & Plan: Continue home medications as per Dr. Dewitt Xarelto 20mg daily ASA 81mg PO daily Patient has a hx of DVT in 2006; IVF in place Status: Acute (10) Prophylactic measure Assessment & Plan: IVC filter in place Continue home medication- ASA 81mg PO Daily, Xarelto 20mg PO daily Pepcid 20mg PO daily Heart healthy diet- consistent carbohydrate Weight bearing activity ordered- non weight bearing as per Podiatry Status: Acute <Rene Dewitt Jr. - Last Filed: 11/03/16 10:13> Objective - Vital Signs/Intake and Output Vital Signs (last 24 hours): Temp Pulse Resp BP Pulse Ox 98 F 80 18 163/86 H 95 10/26/16 07:45 10/26/16 07:45 10/26/16 07:45 10/26/16 07:45 10/26/16 07:45 - Labs Labs: 10/26/16 09:14 10/26/16 09:22 Attending/Attestation - Attestation I have personally seen and examined this patient.: Yes I have fully participated in the care of the patient.: Yes I have reviewed all pertinent clinical information, including history, physical exam and plan: Yes Notes (Text): 11/03/16 10:12 Agree with resident note and findings
[2016-10-25 08:00] LABS: BASO # 0.1 K/uL (0.0-0.2); EOS # 0.3 K/uL (0.0-0.7); EOS % 3.4 % (0.0-4.0); HEMATOCRIT 30.2 % (35.0-51.0); LYMPH # 1.3 K/uL (1.0-4.3); LYMPH % 15.7 % (20.0-40.0); MEAN CELL VOLUME 86.5 fL (80.0-94.0); MEAN CORPUSCULAR HEMOGLOBIN 28.5 pg (27.0-31.0); MEAN PLATELET VOLUME 10.4 fL (7.2-11.7); MONO # 0.7 K/uL (0.0-0.8); MONO % 8.7 % (0.0-10.0); RED CELL DISTRIBUTION WIDTH 13.1 % (11.5-14.5); WHITE BLOOD COUNT 8.4 K/uL (4.8-10.8)
[2016-10-25] MEDS: (Novolin R) Insulin Human Regular 100 units/ml vial SC SCH ×3 (08:00→21:59)
[2016-10-25 08:45] LABS: CHLORIDE 108 mmol/L (98-107); SODIUM 140 mmol/L (132-148)
[2016-10-25 08:46] LABS: POTASSIUM 4.1 mmol/L (3.6-5.2)
--- NOTE | 2016-10-25 08:46 | CP.PCM.PN ---
Subjective - Date & Time of Evaluation Date of Evaluation: 10/24/16 Time of Evaluation: 13:00 - Subjective Subjective: Patient is a 56 year old male seen at bedside 2 days s/p left hallux amputation. Patient states that his pain is decreased from yesterday. He denies any acute overnight events. Patient denies any further pedal complaints at this time. Patient denies N/V/F/C/CP/SOB Objective - Vital Signs/Intake and Output Vital Signs (last 24 hours): Temp Pulse Resp BP Pulse Ox 98.2 F 77 20 133/76 98 10/24/16 23:55 10/24/16 23:55 10/24/16 23:55 10/24/16 23:55 10/24/16 23:55 Intake and Output: 10/25/16 10/25/16 06:59 18:59 Output Total 300 Balance -300 - Medications Medications: Current Medications Acetaminophen (Tylenol 325mg Tab) 650 mg PO Q6 PRN PRN Reason: Pain, Mild (1-3) Aspirin (Aspirin Chewable) 81 mg PO DAILY [facility] Last Admin: 10/24/16 10:03 Dose: 81 mg Carvedilol (Coreg) 6.25 mg PO BID [facility] Last Admin: 10/24/16 10:03 Dose: 6.25 mg Famotidine (Pepcid) 20 mg PO DAILY [facility] Last Admin: 10/24/16 10:03 Dose: 20 mg Lactated Ringer's (Lactated Ringer's) 1,000 mls @ 50 mls/hr IV .Q20H [facility] Last Admin: 10/24/16 03:09 Dose: Not Given Insulin Glargine (Lantus) 50 unit SC HS [facility] Last Admin: 10/24/16 21:48 Dose: 50 u Insulin Human Regular (Novolin R) 0 unit SC ACHS [facility] PRN Reason: Protocol Last Admin: 10/24/16 21:49 Dose: Not Given Isosorbide Mononitrate (Imdur) 60 mg PO DAILY [facility] Last Admin: 10/24/16 10:04 Dose: 60 mg Metformin HCl (Glucophage) 1,000 mg PO BID [facility] Last Admin: 10/24/16 10:04 Dose: 1,000 mg Oxycodone/Acetaminophen (Percocet 5/325 Mg Tab) 1 tab PO Q6H PRN PRN Reason: Pain, moderate (4-7) Stop: 10/25/16 11:05 Oxycodone/Acetaminophen (Percocet 5/325 Mg Tab) 2 tab PO Q6H PRN PRN Reason: Pain, severe (8-10) Stop: 10/25/16 11:05 Last Admin: 10/24/16 10:18 Dose: 2 tab Pramipexole Dihydrochloride (Mirapex) 0.125 mg PO HS [facility] Last Admin: 10/24/16 21:50 Dose: 0.125 mg Pregabalin (Lyrica) 75 mg PO BID [facility] Last Admin: 10/24/16 10:04 Dose: 75 mg Rivaroxaban (Xarelto) 20 mg PO DAILY [facility] Last Admin: 10/24/16 10:03 Dose: 20 mg Sitagliptin Phosphate (Januvia) 50 mg PO BID [facility] Last Admin: 10/24/16 10:04 Dose: 50 mg Zolpidem Tartrate (Ambien) 5 mg PO HS PRN PRN Reason: Insomnia Last Admin: 10/24/16 22:31 Dose: 5 mg - Labs Labs: 10/25/16 07:47 10/24/16 07:21 - Constitutional Appears: Well, Non-toxic, No Acute Distress - Extremities Exam Additional comments: Left lower extremity exam: Vasc: DP/PT pulses palpable, CFT to surgical site < 3 seconds, skin temperature unremarkable Neuro: Epicritic and protective sensation grossly intact Derm: Incision site noted at level of distal left MTPJ. Sutures intact, incision site well coapted and no signs of dehiscence noted. Mild erythema and edema noted to the site. No malodor, purulent drainage or other signs of infection noted at this time. MSK: Left hallux amputation - Neurological Exam Neurological Exam: Alert, Awake, Oriented x3 - Psychiatric Exam Psychiatric exam: Normal Affect, Normal Mood Assessment and Plan - Assessment and Plan (Free Text) Assessment: 56 year old male with left hallux amputation secondary to osteomyelitis Plan: Patient seen and evaluated at bedside Labs and charts reviewed; afebrile, WBC 8.[address] Del Toro Dressed patients foot with wet to dry gauze, ABD, ALCON bandage Post op shoe in place Non WB to left side except for use of bathroom Continue abx Patient to be DC to [facility] Patient stable from podiatry standpoint
[2016-10-25 08:48] LABS: ALB/GLOB RATIO 0.9 (1.0-2.1); ALKALINE PHOSPHATASE 89 U/L (38-126); AST/SGOT 17 U/L (17-59); BILIRUBIN,TOTAL 0.4 mg/dL (0.2-1.3); BLOOD UREA NITROGEN 24 mg/dL (9-20); CARBON DIOXIDE 24 mmol/L (22-30); GFR AFRICAN-AMERICAN > 60; GLUCOSE,RANDOM 128 mg/dL (75-110); PHOSPHOROUS 3.8 mg/dL (2.5-4.5); TOTAL PROTEIN 6.3 g/dL (6.3-8.3)
[2016-10-25 08:49] LABS: ALT/SGPT 17 U/L (21-72); CALCIUM 8.7 mg/dl (8.6-10.4); MAGNESIUM 1.4 mg/dL (1.6-2.3)
[2016-10-25] MEDS: Magnesium Sulfate 1 gm in D5W 1 GM/100 ML BAG IVPB SCH ×3 (16:44→18:11)
[2016-10-25] MEDS: Piperacillin/Tazobact 3.375 GM in Sodium Chloride 100 ML IVPB SCH (18:12)
[2016-10-25] MEDS ORDERED: Oxycodone/Acetaminophen 5/325 mg Tab PO PRN ×2 (20:07)
[2016-10-25] MEDS: (Lantus) Insulin Glargine, Recombinant SC SCH (22:33)
[2016-10-26] MEDS: Piperacillin/Tazobact 3.375 GM in Sodium Chloride 100 ML IVPB SCH ×2 (00:07→08:28)
[2016-10-26] MEDS: (Novolin R) Insulin Human Regular 100 units/ml vial SC SCH ×2 (08:27→12:05)
--- NOTE | 2016-10-26 08:34 | CP.PCM.PN ---
Subjective - Date & Time of Evaluation Date of Evaluation: 10/26/16 Time of Evaluation: 08:32 - Subjective Subjective: Patient is a 56 year old male seen at bedside 4 days s/p left hallux amputation. Patient states that his pain is decreased from yesterday. He denies any acute overnight events. Patient denies any further pedal complaints at this time. Patient denies N/V/F/C/CP/SOB Objective - Vital Signs/Intake and Output Vital Signs (last 24 hours): Temp Pulse Resp BP Pulse Ox 98.6 F 92 H 20 144/85 96 10/26/16 00:00 10/26/16 00:00 10/26/16 00:00 10/26/16 00:00 10/26/16 00:00 - Medications Medications: Current Medications Acetaminophen (Tylenol 325mg Tab) 650 mg PO Q6 PRN PRN Reason: Pain, Mild (1-3) Aspirin (Aspirin Chewable) 81 mg PO DAILY [facility] Last Admin: 10/25/16 10:01 Dose: 81 mg Carvedilol (Coreg) 6.25 mg PO BID [facility] Last Admin: 10/25/16 18:18 Dose: 6.25 mg Famotidine (Pepcid) 20 mg PO DAILY [facility] Last Admin: 10/25/16 10:03 Dose: 20 mg Piperacillin Sod/Tazobactam (Sod 3.375 gm/ Sodium Chloride) 100 mls @ 200 mls/ hr IVPB Q8H [facility] Last Admin: 10/26/16 08:28 Dose: 200 mls/hr Insulin Glargine (Lantus) 50 unit SC HS [facility] Last Admin: 10/25/16 22:33 Dose: 50 u Insulin Human Regular (Novolin R) 0 unit SC ACHS [facility] PRN Reason: Protocol Last Admin: 10/26/16 08:27 Dose: 1 unit Isosorbide Mononitrate (Imdur) 60 mg PO DAILY [facility] Last Admin: 10/25/16 10:01 Dose: 60 mg Metformin HCl (Glucophage) 1,000 mg PO BID [facility] Last Admin: 10/25/16 18:18 Dose: 1,000 mg Oxycodone/Acetaminophen (Percocet 5/325 Mg Tab) 2 tab PO Q6H PRN PRN Reason: Pain, severe (8-10) Stop: 10/28/16 20:08 Last Admin: 10/25/16 20:27 Dose: 2 tab Oxycodone/Acetaminophen (Percocet 5/325 Mg Tab) 1 tab PO Q6H PRN PRN Reason: Pain, moderate (4-7) Stop: 10/28/16 20:08 Pramipexole Dihydrochloride (Mirapex) 0.125 mg PO HS [facility] Last Admin: 10/25/16 22:34 Dose: 0.125 mg Pregabalin (Lyrica) 75 mg PO BID [facility] Last Admin: 10/25/16 18:17 Dose: 75 mg Rivaroxaban (Xarelto) 20 mg PO DAILY [facility] Last Admin: 10/25/16 10:02 Dose: 20 mg Sitagliptin Phosphate (Januvia) 50 mg PO BID [facility] Last Admin: 10/25/16 18:18 Dose: 50 mg Zolpidem Tartrate (Ambien) 5 mg PO HS PRN PRN Reason: Insomnia Last Admin: 10/25/16 22:33 Dose: 5 mg - Labs Labs: 10/25/16 07:47 10/25/16 07:47 - Constitutional Appears: Well, Non-toxic, No Acute Distress - Extremities Exam Additional comments: Left lower extremity exam: Vasc: DP/PT pulses palpable, CFT to surgical site < 3 seconds, skin temperature unremarkable Neuro: Epicritic and protective sensation grossly intact Derm: Incision site noted at level of distal left MTPJ. Sutures intact, incision site well coapted and no signs of dehiscence noted. Mild erythema and edema noted to the site. No malodor, purulent drainage or other signs of infection noted at this time. MSK: Left hallux amputation - Neurological Exam Neurological Exam: Alert, Awake, Oriented x3 - Psychiatric Exam Psychiatric exam: Normal Affect, Normal Mood Assessment and Plan - Assessment and Plan (Free Text) Assessment: 56 year old male with left hallux amputation secondary to osteomyelitis Plan: Patient seen and evaluated at bedside Labs and charts reviewed; afebrile, absent leukocytosis Discussed plan with Dr. Del Toro Dressed patients foot with gauze, ABD, ALCON bandage Post op shoe in place Non WB to left side except for use of bathroom Continue abx Patient to be DC to [facility] Patient stable from podiatry standpoint
[2016-10-26 09:05] VITALS: BP 163/86; PULSE 80; RESP 18; TEMP 98; O2SAT 95
[2016-10-26 09:23] LABS: BASO % 0.7 % (0.0-2.0); EOS # 0.3 K/uL (0.0-0.7); EOS % 3.6 % (0.0-4.0); HEMATOCRIT 30.6 % (35.0-51.0); LYMPH # 0.9 K/uL (1.0-4.3); LYMPH % 11.8 % (20.0-40.0); MEAN CELL VOLUME 85.9 fL (80.0-94.0); MEAN CORPUSCULAR HEMOGLOBIN 28.5 pg (27.0-31.0); MEAN CORPUSCULAR HGB CONC 33.2 g/dL (33.0-37.0); MEAN PLATELET VOLUME 10.3 fL (7.2-11.7); MONO # 0.6 K/uL (0.0-0.8); MONO % 7.8 % (0.0-10.0); RED CELL DISTRIBUTION WIDTH 13.2 % (11.5-14.5); WHITE BLOOD COUNT 7.5 K/uL (4.8-10.8)
[2016-10-26 09:33] LABS: CHLORIDE 107 mmol/L (98-107); SODIUM 141 mmol/L (132-148)
[2016-10-26 09:34] LABS: POTASSIUM 4.3 mmol/L (3.6-5.2)
[2016-10-26 09:35] LABS: GFR AFRICAN-AMERICAN > 60
[2016-10-26 09:36] LABS: ALKALINE PHOSPHATASE 97 U/L (38-126); ALT/SGPT 14 U/L (21-72); AST/SGOT 17 U/L (17-59); BILIRUBIN,TOTAL 0.4 mg/dL (0.2-1.3); BLOOD UREA NITROGEN 26 mg/dL (9-20); CALCIUM 9.1 mg/dl (8.6-10.4); CARBON DIOXIDE 23 mmol/L (22-30); GLUCOSE,RANDOM 152 mg/dL (75-110); PHOSPHOROUS 3.8 mg/dL (2.5-4.5); TOTAL PROTEIN 6.8 g/dL (6.3-8.3)
[2016-10-26 09:37] LABS: MAGNESIUM 1.9 mg/dL (1.6-2.3)
--- NOTE | 2016-10-26 17:40 | CP.PCM.DIS ---
Provider - Provider Date of Admission: 10/22/16 13:23 Attending physician: Rene Dewitt Jr, MD Primary care physician: Dr. Dewitt Consults: Dr. Martinez Time Spent in preparation of Discharge (in minutes): 60 Diagnosis - Discharge Diagnosis (1) History of amputation of hallux Status: Acute Comment: Patient to rehab for 7 days to regain strength/mobility (2) CHF (congestive heart failure) Status: Acute Comment: stable, continue coreg (3) A-fib Status: Acute Comment: stable, follow up outpatient with Dr. Dewitt (4) Diabetes Status: Acute Comment: stable, continue medications (5) Hypertension Status: Acute Comment: stable, continue medications Hospital Course - Lab Results Lab Results: Most Recent Lab Values WBC 7.5 K/uL (4.8-10.8) 10/26/16 09:14 RBC 3.57 Mil/uL (4.40-5.90) L 10/26/16 09:14 Hgb 10.2 g/dL (12.0-18.0) L 10/26/16 09:14 Hct 30.6 % (35.0-51.0) L 10/26/16 09:14 MCV 85.9 fL (80.0-94.0) 10/26/16 09:14 MCH 28.5 pg (27.0-31.0) 10/26/16 09:14 MCHC 33.2 g/dL (33.0-37.0) 10/26/16 09:14 RDW 13.2 % (11.5-14.5) 10/26/16 09:14 Plt Count 181 K/uL (130-400) 10/26/16 09:14 MPV 10.3 fL (7.2-11.7) 10/26/16 09:14 Neut % (Auto) 76.1 % (50.0-75.0) H 10/26/16 09:14 Lymph % (Auto) 11.8 % (20.0-40.0) L 10/26/16 09:14 [place] % (Auto) 7.8 % (0.0-10.0) 10/26/16 09:14 Eos % (Auto) 3.6 % (0.0-4.0) 10/26/16 09:14 Baso % (Auto) 0.7 % (0.0-2.0) 10/26/16 09:14 Neut # 5.7 K/uL (1.8-7.0) 10/26/16 09:14 Lymph # 0.9 K/uL (1.0-4.3) L 10/26/16 09:14 [place] # 0.6 K/uL (0.0-0.8) 10/26/16 09:14 Eos # 0.3 K/uL (0.0-0.7) 10/26/16 09:14 Baso # 0.0 K/uL (0.0-0.2) 10/26/16 09:14 Sodium 141 mmol/L (132-148) 10/26/16 09:22 Potassium 4.3 mmol/L (3.6-5.2) 10/26/16 09:22 Chloride 107 mmol/L (98-107) 10/26/16 09:22 Carbon Dioxide 23 mmol/L (22-30) 10/26/16 09:22 Anion Gap 15 (10-20) 10/26/16 09:22 BUN 26 mg/dL (9-20) H 10/26/16 09:22 Creatinine 1.3 MG/DL (0.8-1.5) 10/26/16 09:22 Est GFR ( Amer) > 60 10/26/16 09:22 Est GFR (Non-Af Amer) 57 10/26/16 09:22 POC Glucose (mg/dL) 145 mg/dL (65-110) H 10/26/16 11:35 Random Glucose 152 mg/dL (75-110) H 10/26/16 09:22 Hemoglobin A1c 10.5 % (4.2-6.5) H D 10/23/16 07:20 Calcium 9.1 mg/dl (8.6-10.4) 10/26/16 09:22 Phosphorus 3.8 mg/dL (2.5-4.5) 10/26/16 09:22 Magnesium 1.9 mg/dL (1.6-2.3) 10/26/16 09:22 Total Bilirubin 0.4 mg/dL (0.2-1.3) 10/26/16 09:22 AST 17 U/L (17-59) 10/26/16 09:22 ALT 14 U/L (21-72) L 10/26/16 09:22 Alkaline Phosphatase 97 U/L (38-126) 10/26/16 09:22 Total Protein 6.8 g/dL (6.3-8.3) 10/26/16 09:22 Albumin 3.3 g/dL (3.5-5.0) L 10/26/16 09:22 Globulin 3.4 gm/dL (2.2-3.9) 10/26/16 09:22 Albumin/Globulin Ratio 1.0 (1.0-2.1) 10/26/16 09:22 - Hospital Course Hospital Course: "CC: post-op left hallux amputation HPI: 56 year old male with a past medical history of CHF, DM, HTN, Afib, hyperlipidemia, OH, and DVT, is post-op for left hallux amputation. Patient reports having osteomyelitis of the left hallux for about 6 to 7 months. He currently reports having no pain in his leg. Patient states his left lower extremity has been red and edematous (more than the right) for months due to the infection. He also reports his legs are edematous regularly. Patient denies symptoms of fevers, chills, headache, dizziness, chest pain, palpitations, abdominal pain, nausea, and vomiting." Patient is stable post-surgical amputation of left hallux on 10/22/[address] Del Toro. Post-op shoe in place. Weight bearing activity ordered. Xray showed recent post op changes. For CHF and HTN patient continued on Coreg 6.25mg PO BID and Imdur 60mg daily. For A. Fib patient on ASA 81mg PO daily, Xarelto 20mg PO daily. For diabetes patient had Accuchecks QACHS. Patient put on Januvet 30/ 1000 BID, Toujeo 50 units daily, ISS SC ACHS, Metformin 1000mg PO BID. Mirapex 0.125mg at HS and Lyrica 75mg PO BID for neuropathy. Patient kept on Percocet 10mg TID and Oxycontin 10mg BID for chronic pain. Patient on Xarelto 20mg daily because of history of DVTs. Patient had a normal bowel movement on 10/23. Physical therapy evaluated patient "PT W/ SLIGHTLY COMPROMISED BALANCE AND STABILITY; NEEDS CONSTANT CUES FOR WEIGHT BEARING PREACUTIONS; CLINICALLY EVOLVING PICTURE; WILL BENEFIT FROM SKILLED PT." Patient cleared for discharge by Dr. Dewitt. Patient cleared for discharge as per podiatry. Patient instructed to follow up with Dr. Dewitt one week after discharge. Patient should continue home medications and Zosyn IVPB for 7 more days after discharge. This is a summary of the hospital course. Please see chart for full details. Discharge Exam - Head Exam Head Exam: NORMAL INSPECTION - Eye Exam Eye Exam: EOMI, Normal appearance, PERRL - ENT Exam ENT Exam: Mucous Membranes Moist - Neck Exam Neck exam: Full Rom - Respiratory Exam Respiratory Exam: Clear to PA & Lateral, NORMAL BREATHING PATTERN, UNREMARKABLE. absent: Rales, Rhonchi, Wheezes, Respiratory Distress, Stridor - Cardiovascular Exam Cardiovascular Exam: REGULAR RHYTHM, RRR - GI/Abdominal Exam GI & Abdominal Exam: Normal Bowel Sounds. absent: Distended, Firm, Tenderness - Extremities Exam Extremities exam: full ROM Additional comments: dressing dry, clean, intact. sotero bandage wrapped over dressing - Neurological Exam Neurological exam: Alert, Oriented x3 - Psychiatric Exam Psychiatric exam: Normal Affect, Normal Mood - Skin Skin Exam: Intact, Normal Color, Warm Discharge Plan - Follow Up Plan Condition: GOOD Disposition: REHAB FACILITY/REHAB UNIT Instructions: Heart Failure (DC), How to Stop Smoking (DC), Heart Healthy Diet (DC), Osteomyelitis (DC), Chronic Pain (DC), Deep Venous Thrombosis (DC), Acute Wound Care (DC), Toe Amputation (DC) Additional Instructions: Please discharge patient to [facility] as per Dr. Dewitt. Please continue home medication as per medication reconciliation list. Patient will need to be on Zosyn IVPB for 7 more days after discharge. Patient to follow up with Dr. Dewitt (primary doctor) within 1 week of discharge. Patient to follow up with Dr. Del Toro (electric organ checker) within one week. Please return to the emergency room if symptoms return. Referrals: Sylvester Del Toro DPM [Doctor Podiatric Medicine] - Rene Dewitt Jr., MD [Family Provider] -
== END 2016-10-26 15:30 | DRG 617 ==
LOC: C.SDS 07:53 → C.9S 11:04 → OBSVTOIN 13:23 → C.6T 20:57
PROVIDERS: ADMIT Internal Medicine; ATTEND Internal Medicine
PROC: 0Y6Q0Z0 Detachment at Left 1st Toe, Complete, Open Approach (ICD-10-PCS; principal; 2016-10-22 09:45)
DX: E11.69 Type 2 diabetes mellitus with other specified complication (principal); M86.9 Osteomyelitis, unspecified; I11.0 Hypertensive heart disease with heart failure; I50.9 Heart failure, unspecified; I48.91 Unspecified atrial fibrillation; E78.5 Hyperlipidemia, unspecified; G62.9 Polyneuropathy, unspecified; Z80.3 Family history of malignant neoplasm of breast; F17.200 Nicotine dependence, unspecified, uncomplicated; G47.00 Insomnia, unspecified; G89.29 Other chronic pain; I25.2 Old myocardial infarction; Z79.84 Long term (current) use of oral hypoglycemic drugs; Z83.3 Family history of diabetes mellitus

== ENCOUNTER 2016-11-23 13:12 | Emergency (ER) | payer MEDICARE ==
[2016-11-23 13:13] VITALS: BMI 30.9
[2016-11-23 13:23] VITALS: BP 134/82; PULSE 89; RESP 20; TEMP 98.3; O2SAT 96
--- NOTE | 2016-11-23 15:01 | C.PDOC ---
History Of Present Illness 56 y/o male sent to emergency department by tv host Dr Del Toro for evaluation of possible infection to left foot. Pt is s/p left great toe amputation. Pt sts, " my tv host feels it might be infected, healing poorly and sent me here". Otherwise, pt denies fever, chills, redness or extensive drainage from the wound, denies chest pain, SOB, dsypnea, diaphoresis, palpitation, denies weakness, sensory or vascular deficits to B/L LEs, denies B/ L calf pain or any other complaints. PMD Esdras. Time Seen by Provider: 11/23/16 14:27 Chief Complaint (Nursing): Medical Clearance History Per: Patient History/Exam Limitations: no limitations Severity: Mild Reports Recently: Treated By A Physician Recent travel outside of the [place]: No Past Medical History Reviewed: Historical Data, Nursing Documentation, Vital Signs Vital Signs: Last Vital Signs Temp 98.3 F 11/23/16 13:18 Pulse 89 11/23/16 13:18 Resp 20 11/23/16 13:18 BP 134/82 11/23/16 13:18 Pulse Ox 96 11/23/16 15:24 - Medical History PMH: Arthritis (hip, arms, neck), CHF, Diabetes, Fractures (left knee 1975), HTN , Hypercholesterolemia, Pulmonary Embolism (CT SCAN 03/11/17-LEFT LOWER LOBE) - [facility] Procedures CENTRAL VENOUS CATHETER PLACEMENT WITH GUIDANCE (08/01/13) DETACHMENT AT LEFT 1ST TOE, COMPLETE, OPEN APPROACH (10/22/16) INSERTION OF INFUSION DEV INTO SUP VENA CAVA, PERC APPROACH (02/28/16) LOC EXC BONE LESION NEC (08/30/13) LOC EXC LES METATAR/TAR (08/01/13) METATAR/TAR SEQUESTREC (08/01/13) NONEXCIS DEBRID OF WOUND, INFECT, OR BURN (08/30/13) TOT OSTECT-METATARS/TARS (05/04/13) Family History: States: Unknown Family Hx - Social History Hx Tobacco Use: Yes (light smoker) Hx Alcohol Use: No (over 17 years ago) Hx Substance Use: No (over 17 years ago) - Immunization History Hx Tetanus Toxoid Vaccination: Yes Hx Influenza Vaccination: Yes Hx Pneumococcal Vaccination: Yes Review Of Systems Except As Marked, All Systems Reviewed And Found Negative. Constitutional: Negative for: Fever, Chills Cardiovascular: Negative for: Chest Pain Respiratory: Negative for: Shortness of Breath Musculoskeletal: Positive for: Other (possible left foot infection). Negative for: Leg Pain Neurological: Negative for: Weakness, Numbness Physical Exam - Physical Exam Appears: Well, Non-toxic, No Acute Distress Skin: Warm, Dry, No Rash Oral Mucosa: Moist Throat: No Drooling Neck: Supple Cardiovascular: Rhythm Regular Respiratory: No Decreased Breath Sounds, No Accessory Muscle Use, No Rales, No Rhonchi, No Stridor, No Wheezing Gastrointestinal/Abdominal: Soft, No Tenderness Extremity: No Tenderness, No Calf Tenderness (B/L), Capillary Refill (less than 2sec to left foot), No Deformity, Other (Left foot great toe amputation. Wound closed with sutures in place, slightly open, appears clean. No drainage, erythema or significant tenderness.) Neurological/Psych: Oriented x3, Normal Speech, Normal Cognition, Normal Motor, Normal Sensation, Normal Reflexes ED Course And Treatment - Laboratory Results Result Diagrams: 11/23/16 15:35 11/23/16 15:35 Lab Interpretation: Abnormal O2 Sat by Pulse Oximetry: 96 (room air) Pulse Ox Interpretation: Normal Progress Note: After my initial assessment, pt appears fine. Diagnostics review and abnormal blood work noted: hyperkalemia, hyperglycemia. Tx order, EKG requested. Case was discussed with and admission arranged. As per RN, tried to explained findings and pt became agitated and refuses tx and wish to leave. At 15:20, went to bedside to explain the blood results, pt would not listen, becae combative and abusive, screaming, cursing at me, RN and other medical staff. Pt was asked to leave ED and return at any time for re- evaluation. Disposition - Disposition Disposition: AGAINST MEDICAL ADVICE Disposition Time: 15:24 Condition: STABLE Forms: [facility] (Georgian) - Clinical Impression Clinical Impression: Hyperkalemia, Osteomyelitis of left foot, Diabetes - PA / CASING IN LINE FEEDER / Resident Statement MD/DO has reviewed & agrees with the documentation as recorded. - Scribe Statement The provider has reviewed the documentation as recorded by the Scribe Anam Andrade All medical record entries made by the Scribe were at my direction and personally dictated by me. I have reviewed the chart and agree that the record accurately reflects my personal performance of the history, physical exam, medical decision making, and the department course for this patient. I have also personally directed, reviewed, and agree with the discharge instructions and disposition.
[2016-11-23 15:39] LABS: BASO # 0.1 K/uL (0.0-0.2); EOS # 0.2 K/uL (0.0-0.7); EOS % 3.4 % (0.0-4.0); HEMOGLOBIN 10.1 g/dL (12.0-18.0); LYMPH # 1.4 K/uL (1.0-4.3); LYMPH % 20.6 % (20.0-40.0); MEAN CELL VOLUME 87.2 fL (80.0-94.0); MEAN CORPUSCULAR HEMOGLOBIN 29.4 pg (27.0-31.0); MEAN CORPUSCULAR HGB CONC 33.8 g/dL (33.0-37.0); MEAN PLATELET VOLUME 10.1 fL (7.2-11.7); MONO # 0.6 K/uL (0.0-0.8); MONO % 8.9 % (0.0-10.0); NEUT # 4.4 K/uL (1.8-7.0); NEUT % 66.1 % (50.0-75.0); RBC 3.44 Mil/uL (4.40-5.90); RED CELL DISTRIBUTION WIDTH 13.8 % (11.5-14.5); WHITE BLOOD COUNT 6.6 K/uL (4.8-10.8)
[2016-11-23 15:47] LABS: INR 1.1; PROTHROMBIN TIME 12.7 SECONDS (9.7-12.2)
[2016-11-23 16:01] LABS: CALCIUM 8.7 mg/dl (8.6-10.4)
[2016-11-23] MEDS ORDERED: Dextrose 50% SYRINGE Inj (50 ml) IV STA (16:17)
[2016-11-23 16:18] LABS: URINE BILIRUBIN NEGATIVE (NEGATIVE); URINE CLARITY Clear (Clear); URINE COLOR Yellow (YELLOW); URINE GLUCOSE (UA) 1+ mg/dL (Normal); URINE LEUKOCYTE ESTERASE NEG Leu/uL (Negative); URINE NITRATE NEGATIVE (NEGATIVE); URINE PROTEIN 2+ mg/dL (NEGATIVE); URINE UROBILINOGEN NORMAL mg/dL (0.2-1.0)
[2016-11-23] MEDS ORDERED: (Novolin R) Insulin Human Regular 100 units/ml vial IV ONE (16:18)
[2016-11-23] MEDS ORDERED: Sod Polystyrene Sulf 15 gm/60 ml Oral Susp PO ONE (16:19)
[2016-11-23] MEDS ORDERED: Sod Polystyrene Sulf 15 gm/60 ml Oral Susp ONE (16:26)
[2016-11-23] MEDS ORDERED: (Novolog) Insulin Aspart, Recombinant 100 u/ml 10 ml vial ONE (16:26)
[2016-11-23] MEDS ORDERED: Dextrose 50% SYRINGE Inj (50 ml) ONE (16:27)
[2016-11-23 16:57] LABS: URINE BLOOD TRACE (NEGATIVE)
--- NOTE | 2016-11-23 17:38 | RAD ---
PROCEDURE: Left Foot Radiographs. HISTORY: chronic ulcer, pain r/o osteo COMPARISON: None available. FINDINGS: BONES: Status post dissection of the 1st phalanx at the level of the distal 1st metatarsal head similar to prior study. No acute displaced fracture. JOINTS: No dislocation. SOFT TISSUES: Soft tissue swelling. Evidence of soft tissue ulceration at the level of the distal 1st phalanx soft tissues. No evidence of radiopaque foreign body. OTHER FINDINGS: None. IMPRESSION: Soft tissue swelling. Evidence of soft tissue ulceration at the level of the distal 1st phalanx soft tissues. Correlate clinically. Status post dissection of the 1st phalanx at the level of the distal 1st metatarsal head ; appearance similar to prior study.
== END 2016-11-23 17:04 | disposition left against medical advice (07) ==
LOC: C.ER 13:12
DX: E11.69 Type 2 diabetes mellitus with other specified complication (principal); M86.8X7 Other osteomyelitis, ankle and foot; E87.5 Hyperkalemia

== ENCOUNTER 2016-12-02 07:55 | Emergency (ER) | payer MEDICARE ==
[2016-12-02 07:56] VITALS: BMI 30.9
--- NOTE | 2016-12-02 09:05 | C.PDOC ---
History Of Present Illness 56 y/o male sent by top former Dr. Molina for PIC insertion and bloodwork. Pt with history of diabetes, and multiple foot surgeries, including amputations. Patient sent for concern over possible infection. Denies fevers. Patient also reports history of CHF, PE's, drop foot left side. Time Seen by Provider: 12/02/16 08:15 Chief Complaint (Nursing): Medical Clearance History Per: Patient History/Exam Limitations: no limitations Onset/Duration Of Symptoms: Days Current Symptoms Are (Timing): Still Present Recent travel outside of the [place]: No Past Medical History Reviewed: Historical Data, Nursing Documentation, Vital Signs Vital Signs: Last Vital Signs Temp 97.5 F L 12/02/16 13:37 Pulse 72 12/02/16 13:37 Resp 14 12/02/16 13:37 BP 172/94 H 12/02/16 13:37 Pulse Ox 97 12/02/16 13:47 - Medical History PMH: Arthritis (hip, arms, neck), Back Problems, CHF, Diabetes, Fractures (left knee 1975), HTN, Hypercholesterolemia, Pulmonary Embolism (CT SCAN 03/11/17- LEFT LOWER LOBE) - [facility] Procedures CENTRAL VENOUS CATHETER PLACEMENT WITH GUIDANCE (08/01/13) DETACHMENT AT LEFT 1ST TOE, COMPLETE, OPEN APPROACH (10/22/16) INSERTION OF INFUSION DEV INTO SUP VENA CAVA, PERC APPROACH (02/28/16) LOC EXC BONE LESION NEC (08/30/13) LOC EXC LES METATAR/TAR (08/01/13) METATAR/TAR SEQUESTREC (08/01/13) NONEXCIS DEBRID OF WOUND, INFECT, OR BURN (08/30/13) TOT OSTECT-METATARS/TARS (05/04/13) Family History: States: Unknown Family Hx - Social History Hx Tobacco Use: Yes (light smoker) Hx Alcohol Use: No (over 17 years ago) Hx Substance Use: No (over 17 years ago) - Immunization History Hx Tetanus Toxoid Vaccination: Yes Hx Influenza Vaccination: Yes Hx Pneumococcal Vaccination: Yes Review Of Systems Except As Marked, All Systems Reviewed And Found Negative. Constitutional: Negative for: Fever, Chills Respiratory: Negative for: Cough, Shortness of Breath Skin: Positive for: Lesions (left foot). Negative for: Rash Neurological: Negative for: Numbness, Headache Physical Exam - Physical Exam Appears: Non-toxic, No Acute Distress Skin: Warm, Dry Head: Atraumatic, Normacephalic Eye(s): bilateral: Normal Inspection, PERRL, EOMI Ear(s): Bilateral: Normal Nose: Normal Oral Mucosa: Moist Chest: Symmetrical Cardiovascular: Rhythm Regular Respiratory: Normal Breath Sounds, No Rales, No Rhonchi, No Wheezing Gastrointestinal/Abdominal: Soft, No Tenderness Extremity: Other (walking boot left side) Neurological/Psych: Oriented x3, Normal Speech, Normal Cognition ED Course And Treatment - Laboratory Results Result Diagrams: 12/02/16 09:24 12/02/16 09:24 Lab Interpretation: Normal O2 Sat by Pulse Oximetry: 97 (RA) Pulse Ox Interpretation: Normal Progress Note: PICC line inserted by PICC team. Case discussed with Dr Del Toro who request discharge and follow up tomorrow at his office Reassessment Condition: Improved Disposition Discussed With Dr.: Sylvester Del Toro Comment: follow up in office tomorrow Doctor Will See Patient In The: Office Counseled Patient/Family Regarding: Studies Performed, Diagnosis, Need For Followup, Rx Given - Disposition Referrals: Sylvester Del Toro, DPM [Doctor Podiatric Medicine] - Disposition: HOME/ ROUTINE Disposition Time: 14:00 Condition: STABLE Additional Instructions: Follow up with Dr Del Toro tomorrow Instructions: Cellulitis (ED), Peripherally Inserted Central Catheters and Midline Catheters (GEN) Forms: [facility] (Trinidadian) - POA Present On Arrival: None - Clinical Impression Clinical Impression: Cellulitis - PA / CRYSTAL GAZER / Resident Statement MD/DO has reviewed & agrees with the documentation as recorded. - Scribe Statement The provider has reviewed the documentation as recorded by the Scribe BRIT RIOS All medical record entries made by the Juveibrosemarie were at my direction and personally dictated by me. I have reviewed the chart and agree that the record accurately reflects my personal performance of the history, physical exam, medical decision making, and the department course for this patient. I have also personally directed, reviewed, and agree with the discharge instructions and disposition.
[2016-12-02 09:30] LABS: BASO # 0.1 K/uL (0.0-0.2); BASO % 0.7 % (0.0-2.0); EOS # 0.2 K/uL (0.0-0.7); EOS % 2.3 % (0.0-4.0); HEMATOCRIT 30.2 % (35.0-51.0); LYMPH # 1.4 K/uL (1.0-4.3); LYMPH % 17.5 % (20.0-40.0); MEAN CELL VOLUME 86.6 fL (80.0-94.0); MEAN CORPUSCULAR HEMOGLOBIN 29.2 pg (27.0-31.0); MEAN CORPUSCULAR HGB CONC 33.8 g/dL (33.0-37.0); MEAN PLATELET VOLUME 9.6 fL (7.2-11.7); MONO # 0.8 K/uL (0.0-0.8); WHITE BLOOD COUNT 8.2 K/uL (4.8-10.8)
[2016-12-02 09:38] LABS: CHLORIDE 106 mmol/L (98-107)
[2016-12-02 09:39] LABS: POTASSIUM 4.8 mmol/L (3.6-5.2); SODIUM 139 mmol/L (132-148)
[2016-12-02 09:41] LABS: CARBON DIOXIDE 23 mmol/L (22-30); GFR AFRICAN-AMERICAN > 60
[2016-12-02 09:42] LABS: ALB/GLOB RATIO 1.2 (1.0-2.1); ALKALINE PHOSPHATASE 105 U/L (38-126); ALT/SGPT 31 U/L (21-72); AST/SGOT 19 U/L (17-59); BILIRUBIN,TOTAL 0.4 mg/dL (0.2-1.3); BLOOD UREA NITROGEN 31 mg/dL (9-20); CALCIUM 8.7 mg/dl (8.6-10.4); GLUCOSE,RANDOM 162 mg/dL (75-110); TOTAL PROTEIN 6.3 g/dL (6.3-8.3)
[2016-12-02 09:52] LABS: RBC URINE 9 /hpf (0-3); URINE BILIRUBIN NEGATIVE (NEGATIVE); URINE BLOOD 1+ (NEGATIVE); URINE COLOR Yellow (YELLOW); URINE GLUCOSE (UA) 1+ mg/dL (Normal); URINE KETONE NEGATIVE (NEGATIVE); URINE LEUKOCYTE ESTERASE NEG Leu/uL (Negative); URINE PROTEIN 3+ mg/dL (NEGATIVE); URINE UROBILINOGEN NORMAL mg/dL (0.2-1.0); WBC URINE 1 /hpf (0-5)
--- NOTE | 2016-12-02 11:34 | RAD ---
HISTORY: VERIFY RIGHT PICC COMPARISON: Chest x-ray performed 10/19/16 TECHNIQUE: Chest, one view. FINDINGS: Right-sided PICC extends to the cavoatrial junction. Examination limited by habitus. LUNGS: No focal consolidation. Please note that chest x-ray has limited sensitivity for the detection of pulmonary masses. PLEURA: No significant pleural effusion identified. No definite pneumothorax . CARDIOVASCULAR: Heart size appears within normal limits. OSSEOUS STRUCTURES: Degenerative changes. VISUALIZED UPPER ABDOMEN: Unremarkable. OTHER FINDINGS: None. IMPRESSION: Right-sided PICC extends to the cavoatrial junction.
[2016-12-02 13:38] VITALS: PULSE 72; RESP 14; TEMP 97.5
[2016-12-02 13:47] VITALS: O2SAT 97
[2016-12-02 14:15] VITALS: BP 169/92
== END 2016-12-02 14:16 | disposition home or self-care (01) ==
LOC: C.ER 07:55
DX: L03.116 Cellulitis of left lower limb (principal); B95.7 Other staphylococcus as the cause of diseases classified elsewhere

== ENCOUNTER 2017-04-28 18:29 | Inpatient (IN) | payer MEDICARE ==
[2017-04-28 18:29] VITALS: BMI 31.4
--- NOTE | 2017-04-28 22:09 | C.PDOC ---
History Of Present Illness 57 year old male with PMHx of Dm type 2, CHF, chronic pain syndrome, peripheral neuropathy presents today for evaluation of a 5 cm wound to the sole of the right foot. Patient reports he first noted the wound on Wednesday states he was febrile then 103, and his legs were swollen. Patient reports he went to see the application spec today who cut open the wound and drained it. Plush Finisher told the patient to come to the ED for admission under Dr. Dewitt. Patient states he feel fine today. Time Seen by Provider: 04/28/17 21:24 Chief Complaint (Nursing): Lower Extremity Problem/Injury History Per: Patient History/Exam Limitations: no limitations Onset/Duration Of Symptoms: Days Current Symptoms Are (Timing): Still Present Recent travel outside of the [place]: No Additional History Per: Patient - Ankle/Foot Description Of Injury: Other Alleviating Factor(s): denies: Ice Therapy Past Medical History Reviewed: Historical Data, Nursing Documentation, Vital Signs Vital Signs: Last Vital Signs Temp 99.2 F 04/28/17 19:54 Pulse 98 H 04/28/17 19:54 Resp 20 04/28/17 19:54 BP 146/76 04/28/17 19:54 Pulse Ox 98 04/28/17 22:26 - Medical History PMH: Arthritis (hip, arms, neck), Back Problems, CHF, Diabetes, Fractures (left knee 1975), HTN, Hypercholesterolemia, Pulmonary Embolism (CT SCAN 03/11/17- LEFT LOWER LOBE) Denies: Chronic Kidney Disease Surgical History: No Surg Hx - [facility] Procedures CENTRAL VENOUS CATHETER PLACEMENT WITH GUIDANCE (08/01/13) DETACHMENT AT LEFT 1ST TOE, COMPLETE, OPEN APPROACH (10/22/16) INSERTION OF INFUSION DEV INTO SUP VENA CAVA, PERC APPROACH (02/28/16) LOC EXC BONE LESION NEC (08/30/13) LOC EXC LES METATAR/TAR (08/01/13) METATAR/TAR SEQUESTREC (08/01/13) NONEXCIS DEBRID OF WOUND, INFECT, OR BURN (08/30/13) TOT OSTECT-METATARS/TARS (05/04/13) Family History: States: Unknown Family Hx - Social History Hx Tobacco Use: Yes (light smoker) Hx Alcohol Use: No Hx Substance Use: No (over 17 years ago) - Immunization History Hx Tetanus Toxoid Vaccination: Yes Hx Influenza Vaccination: Yes Hx Pneumococcal Vaccination: Yes Review Of Systems Constitutional: Negative for: Fever, Chills Cardiovascular: Negative for: Chest Pain, Palpitations Respiratory: Negative for: Cough Gastrointestinal: Negative for: Nausea, Vomiting, Abdominal Pain Musculoskeletal: Positive for: Foot Pain (right foot ) Skin: Positive for: Other (wound bottom right foot) Neurological: Positive for: Numbness. Negative for: Weakness, Headache Physical Exam - Physical Exam Appears: Non-toxic, No Acute Distress Skin: Normal Color, Warm, Dry Head: Atraumatic, Normacephalic Nose: No Discharge, No Deformity Oral Mucosa: Moist Neck: Normal ROM, Supple Chest: Symmetrical Cardiovascular: Rhythm Regular, No Murmur Respiratory: Normal Breath Sounds, No Rales, No Rhonchi, No Wheezing Gastrointestinal/Abdominal: Soft, No Tenderness Extremity: Normal ROM, No Pedal Edema, No Calf Tenderness, Deformity (left big to amputated ), Other (bottom sole 5 cm wound with pus, edemadous ) Pulses: Left Dorsalis Pedis: Normal, Right Dorsalis Pedis: Normal Neurological/Psych: Oriented x3, Normal Speech, Normal Cognition ED Course And Treatment - Laboratory Results Result Diagrams: 04/28/17 22:20 O2 Sat by Pulse Oximetry: 98 (On RA) Pulse Ox Interpretation: Normal - Physician Consult Information Time Consulting Physician Contacted: 22:08 Physician Contacted: Rene Dewitt Jr. Outcome Of Conversation: Patient to be admitted for IV antibiotics. Medical Decision Making Medical Decision Making: Plan: * Blood work * Blood culture * Wound culture Spoke with Dr. Dewitt who will admit the patient. Disposition - Disposition Disposition: HOSPITALIZED Disposition Time: 22:09 Condition: STABLE - POA Present On Arrival: None - Clinical Impression Clinical Impression: Diabetic foot ulcer, Diabetic foot infection - Scribe Statement The provider has reviewed the documentation as recorded by the Scribe [place] All medical record entries made by the Scribe were at my direction and personally dictated by me. I have reviewed the chart and agree that the record accurately reflects my personal performance of the history, physical exam, medical decision making, and the department course for this patient. I have also personally directed, reviewed, and agree with the discharge instructions and disposition.
[2017-04-28 22:43] LABS: BASO # 0.1 K/uL (0.0-0.2); BASO % 0.7 % (0.0-2.0); EOS # 0.2 K/uL (0.0-0.7); EOS % 2.7 % (0.0-4.0); LYMPH # 1.7 K/uL (1.0-4.3); LYMPH % 20.4 % (20.0-40.0); MEAN CORPUSCULAR HEMOGLOBIN 29.6 pg (27.0-31.0); MEAN CORPUSCULAR HGB CONC 34.5 g/dL (33.0-37.0); MEAN PLATELET VOLUME 9.8 fL (7.2-11.7); MONO % 12.9 % (0.0-10.0); NEUT # 5.2 K/uL (1.8-7.0); NEUT % 63.3 % (50.0-75.0); RBC 3.38 Mil/uL (4.40-5.90); RED CELL DISTRIBUTION WIDTH 12.6 % (11.5-14.5); WHITE BLOOD COUNT 8.1 K/uL (4.8-10.8)
[2017-04-28 23:00] LABS: ALB/GLOB RATIO 1.1 (1.0-2.1); ALBUMIN 3.6 g/dL (3.5-5.0); CALCIUM 8.1 mg/dl (8.6-10.4)
--- NOTE | 2017-04-28 23:04 | CP.PCM.HP ---
History of Present Illness - History of Present Illness History of Present Illness: PGY-1 H&P for Dr. Dewitt CC: right foot wound This is a 57 year old male with PMHx diabetes, [place], DVT, HTN, CHF, HLD, Afib who presents complaining of a wound in his right foot. Patient states that his feet are numb bilaterally and he cannot feel any pain there. Patient states that on Wednesday while he was walking in his home, he noticed blood and foul smelling discharge on the floor. Patient examined his feet and noted the wound. Since then, patient has been feeling subjectively feverish intermittently. Patient went to see Dr. Luciano earlier today where he incised and drained the wound. He then recommended that the patient go to the hospital to be admitted for further evaluation. Patient denies any acute complaint presently stating that his fevers have resolved but does admit to intermittent chills today. PMHx: [place] (2015); DVT (2006), HTN, DM, HTN, CHF, HLD, Afib PSHx: significant number of surgeries on right foot, per patient he does not have the metatarsals of his right foot digits 2-5. left big toe amputation. 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 Dewitt [employer] Service Associate: Dr. Luciano Medications: Xarelto 20mg daily, ASA 81mg PO dialy, Imdur 60mg daily, Coreg 6.25mg PO BID, Januvia 100 mg PO daily, Lyrica 75mg PO BID, Ambien 10mg daily, Percocet 10mg TID, Oxycontin 10mg BID, Toujeo 50 units daily, Mirapex 0.125mg HS Present on Admission - Present on Admission Any Indicators Present on Admission: No Review of Systems - Constitutional Constitutional: Chills (intermittent). absent: Fever - EENT Eyes: absent: Change in Vision Ears: absent: Decreased Hearing Nose/Mouth/Throat: absent: Nasal Congestion - Cardiovascular Cardiovascular: absent: Chest Pain - Respiratory Respiratory: absent: Dyspnea - Gastrointestinal Gastrointestinal: absent: Abdominal Pain, Constipation, Diarrhea, Nausea, Vomiting - Genitourinary Genitourinary: absent: Dysuria - Musculoskeletal Musculoskeletal: absent: Muscle Weakness - Integumentary Integumentary: New Lesions (right foot) - Neurological Neurological: Numbness (chronic numbness of both feet). absent: Dizziness, Tingling, Weakness - Psychiatric Psychiatric: absent: Anxiety - Endocrine Endocrine: absent: Fatigue, Palpitations Past Patient History - Infectious Disease Hx of Infectious Diseases: None - Past Medical History & Family History Past Medical History?: Yes - Past Social History Smoking Status: Heavy Smoker > 10 Cigarettes Daily - CARDIAC Hx Congestive Heart Failure: Yes Hx Hypercholesterolemia: Yes Hx Hypertension: Yes - PULMONARY Hx Pulmonary Embolism: Yes (CT SCAN 03/11/17-LEFT LOWER LOBE) - NEUROLOGICAL Hx Neurological Disorder: Yes Hx Paralysis: Yes (drop foot, left leg) - HEENT Hx HEENT Problems: No Other/Comment: wears glasses - RENAL Hx Chronic Kidney Disease: No - HEMATOLOGICAL/ONCOLOGICAL Hx Blood Disorders: No - INTEGUMENTARY Hx Dermatological Problems: Yes Other/Comment: Right foot ulcer - MUSCULOSKELETAL/RHEUMATOLOGICAL Hx Arthritis: Yes (hip, arms, neck) Hx Fractures: Yes (left knee 1975) - GASTROINTESTINAL Hx Gastrointestinal Disorders: No - GENITOURINARY/GYNECOLOGICAL Hx Genitourinary Disorders: No - PSYCHIATRIC Hx Substance Use: No (over 17 years ago) - SURGICAL HISTORY Hx Surgeries: Yes Hx Amputation: Yes (1ST DIGIT OF LEFT FOOT) Hx Cardiac Catheterization: Yes (X 3) Hx Orthopedic Surgery: Yes (removal of bones in right foot 04/2013 & 2011) Other/Comment: right Ulnar Collateral Ligament construction 1975,Vena Cava Filter to L LE,Lumbar Surgery in [facility],R foot Surgery by Dr.Den Castle,. IVC FILTER - ANESTHESIA Hx Anesthesia: Yes Hx Anesthesia Reactions: No Hx Malignant Hyperthermia: No Meds Allergies/Adverse Reactions: Allergies Allergy/AdvReac Type Severity Reaction Status Date / Time vancomycin Allergy Severe SHORTNESS Verified 12/02/16 08:19 OF BREATH Physical Exam - Constitutional Appears: No Acute Distress - Head Exam Head Exam: ATRAUMATIC, NORMOCEPHALIC - Eye Exam Eye Exam: EOMI, PERRL - ENT Exam ENT Exam: Mucous Membranes Moist - Respiratory Exam Respiratory Exam: Clear to Auscultation Bilateral, NORMAL BREATHING PATTERN. absent: Rales, Rhonchi, Wheezes - Cardiovascular Exam Cardiovascular Exam: REGULAR RHYTHM, +S1, +S2 - GI/Abdominal Exam GI & Abdominal Exam: Distended, Normal Bowel Sounds, Soft. absent: Firm, Tenderness - Extremities Exam Extremities exam: Positive for: pedal edema (bilateral non-pitting), pedal pulses present. Negative for: tenderness Additional comments: Left foot: Big toe amputation Right foot: deformity of the right foot. Per patient, he does not have the metatarsals in the 2nd-5th digits of the right foot anymore. On the underside of the foot, there is a lesion that appears to have been cut cleanly open. It was draining minimal amount of purulent fluid at the time of encounter. Dried blood in the area. - Neurological Exam Neurological exam: Alert, CN II-XII Intact, Oriented x3 - Psychiatric Exam Psychiatric exam: Normal Affect, Normal Mood - Skin Skin Exam: Dry, Warm Results - Vital Signs Recent Vital Signs: Last Vital Signs Temp 99.2 F 04/28/17 19:54 Pulse 98 H 04/28/17 19:54 Resp 20 04/28/17 19:54 BP 146/76 04/28/17 19:54 Pulse Ox 98 04/28/17 22:26 - Labs Result Diagrams: 04/28/17 22:20 04/28/17 22:20 Labs: Laboratory Results - last 24 hr 04/28/17 22:20 WBC 8.1 RBC 3.38 L Hgb 10.0 L Hct 29.1 L MCV 86.0 MCH 29.6 MCHC 34.5 RDW 12.6 Plt Count 210 MPV 9.8 Neut % (Auto) 63.3 Lymph % (Auto) 20.4 [place] % (Auto) 12.9 H Eos % (Auto) 2.7 Baso % (Auto) 0.7 Neut # 5.2 Lymph # 1.7 [place] # 1.0 H Eos # 0.2 Baso # 0.1 Assessment & Plan - Assessment and Plan (Free Text) Plan: Right Foot Wound f/u blood cultures f/u wound cultures Podiatry consult, Dr. Luciano, help appreciated ID consult, Dr. Kothari, help appreciated Ordered loading dose of Tygacil 100 mg IV given at time of admission. History of Diabetes Home Lantus 50 units HS Home Januvia 100 mg PO daily Regular ISS added for additional coverage Accuchecks f/u hemoglobin A1c History of CHF Home Coreg 6.25 mg PO BID Home Imdur 60 mg PO daily Home ASA 81 mg PO daily History of A-fib Rate control with Coreg 6.25 mg PO BID Anticoagulate with Xarelto 25 mg PO daily History of Hyperlipidemia Home Crestor 10 mg PO daily f/u lipid panel History of Hypertension Coreg and Imdur as above Prophylactic Measure Protonix 40 mg PO daily Xarelto 20 mg PO daily Heart Healthy Diet Case DW Dr. Esdras Elder PGY-1
[2017-04-29] MEDS ORDERED: oxyCODONE 10 mg Immediate Release Tab PO ONE (01:27)
[2017-04-29 07:05] LABS: BASO % 0.6 % (0.0-2.0); EOS # 0.2 K/uL (0.0-0.7); EOS % 3.4 % (0.0-4.0); HEMOGLOBIN 9.6 g/dL (12.0-18.0); LYMPH # 1.2 K/uL (1.0-4.3); LYMPH % 17.3 % (20.0-40.0); MEAN CELL VOLUME 86.8 fL (80.0-94.0); MEAN CORPUSCULAR HEMOGLOBIN 30.1 pg (27.0-31.0); MEAN CORPUSCULAR HGB CONC 34.7 g/dL (33.0-37.0); MEAN PLATELET VOLUME 9.7 fL (7.2-11.7); MONO # 0.9 K/uL (0.0-0.8); MONO % 13.3 % (0.0-10.0); NEUT # 4.5 K/uL (1.8-7.0); NEUT % 65.4 % (50.0-75.0); RBC 3.2 Mil/uL (4.40-5.90); RED CELL DISTRIBUTION WIDTH 12.5 % (11.5-14.5); WHITE BLOOD COUNT 6.8 K/uL (4.8-10.8)
[2017-04-29 07:21] LABS: ALT/SGPT 19 U/L (21-72); AST/SGOT 19 U/L (17-59); BLOOD UREA NITROGEN 35 mg/dL (9-20); CALCIUM 7.9 mg/dl (8.6-10.4); GFR AFRICAN-AMERICAN 42; GFR NON-AFRICAN AMERICAN 35; HDL CHOLESTEROL 20 mg/dL (30-70)
[2017-04-29 07:25] LABS: INR 1.2; PROTHROMBIN TIME 13.9 SECONDS (9.7-12.2)
[2017-04-29 07:39] LABS: LDL CHOLESTEROL < 30 mg/dL (0-129)
[2017-04-29] MEDS: (Novolin R) Insulin Human Regular 100 units/ml vial SC SCH ×4 (08:25→21:29)
--- NOTE | 2017-04-29 10:11 | CP.PCM.PN ---
Subjective - Date & Time of Evaluation Date of Evaluation: 04/29/17 Time of Evaluation: 10:08 - Subjective Subjective: Medicine Progress Note: Dr Dewitt Service Patient seen and examined at bedside. Per nursing no acute events overnight. Patient is doing well, states that he does not know how long he had the wound on his right foot for. States that on Wednesday is when he started feeling fevers and chills. At that time is when he started noticing bleeding/drainage from his foot. At this time he offers no complaints. Denies headaches, dizziness, cp, palpitations, sob, abdominal pain, urinary symptoms, changes in bowel habits. Objective - Vital Signs/Intake and Output Vital Signs (last 24 hours): Temp Pulse Resp BP Pulse Ox 97.6 F 86 20 129/76 95 04/29/17 08:00 04/29/17 08:00 04/29/17 08:00 04/29/17 08:00 04/29/17 08:00 - Medications Medications: Current Medications Acetaminophen (Tylenol 325mg Tab) 650 mg PO Q6 PRN PRN Reason: Fever >100.4 F Aspirin (Aspirin Chewable) 81 mg PO DAILY [facility] Carvedilol (Coreg) 6.25 mg PO BID [facility] Tigecycline 50 mg/ Sodium (Chloride) 100 mls @ 100 mls/hr IVPB Q12H [facility] Insulin Glargine (Lantus) 50 unit SC HS [facility] Insulin Human Regular (Novolin R) 0 unit SC ACHS [facility] PRN Reason: Protocol Last Admin: 04/29/17 08:25 Dose: 8 unit Isosorbide Mononitrate (Imdur) 60 mg PO DAILY [facility] Pantoprazole Sodium (Protonix Ec Tab) 40 mg PO DAILY [facility] Pramipexole Dihydrochloride (Mirapex) 0.125 mg PO HS [facility] Pregabalin (Lyrica) 75 mg PO BID [facility] Rivaroxaban (Xarelto) 20 mg PO DAILY [facility] Rosuvastatin Calcium (Crestor) 10 mg PO HS [facility] Sitagliptin Phosphate (Januvia) 100 mg PO DAILY [facility] Zolpidem Tartrate (Ambien) 5 mg PO HS PRN PRN Reason: Insomnia Last Admin: 04/29/17 01:12 Dose: 5 mg - Labs Labs: 04/29/17 06:56 04/29/17 06:56 PT 13.9 SECONDS (9.7-12.2) H 04/29/17 06:56 INR 1.2 04/29/17 06:56 APTT 34 SECONDS (21-34) 04/29/17 06:56 - Constitutional Appears: Well, No Acute Distress - Head Exam Head Exam: ATRAUMATIC, NORMAL INSPECTION - Eye Exam Eye Exam: EOMI, Normal appearance - ENT Exam ENT Exam: Mucous Membranes Moist - Neck Exam Neck Exam: Full ROM - Respiratory Exam Respiratory Exam: Clear to Ausculation Bilateral, NORMAL BREATHING PATTERN. absent: Rales, Rhonchi, Wheezes - Cardiovascular Exam Cardiovascular Exam: REGULAR RHYTHM, +S1, +S2 - GI/Abdominal Exam GI & Abdominal Exam: Soft, Normal Bowel Sounds. absent: Firm, Guarding, Rigid, Tenderness - Extremities Exam Extremities Exam: absent: Tenderness Additional comments: Patient has no sensation in both feet/lower legs bilaterally On Plantar surface of right foot there is a 4-5cm superificial wound; Mild serous drainage is noted. Erythema noted around wound >2cm marginal boarder. L great toe amputated - Neurological Exam Neurological Exam: Alert, Awake, Oriented x3 - Psychiatric Exam Psychiatric exam: Normal Affect, Normal Mood - Skin Skin Exam: Dry, Normal Color, Warm Assessment and Plan - Assessment and Plan (Free Text) Assessment: Right Foot Wound -Stable, afebrile -F/U blood cultures, wound cultures -Antibiotics: Tygacil 50mg Q12H IV -Tylenol 650mg PO Q6H prn fever -Podiatry consult, Dr. Luciano, help appreciated -Right foot cleansed with Saline, Peroxide, DSD wet to dry BID (By podiatry) -Patient to be non-weight bearing on right foot -No surgical intervention at this time -ID consult, Dr. Kothari, help appreciated History of Diabetes Mellitus (uncontrolled), peripheral neuropathy -Continue Lantus 50 units HS -Continue Januvia 100 mg PO daily -Regular ISS added for additional coverage -Accuchecks ACHS -HgA1C 11.8 -Str[employer]ic Accounts Manager, [employer] Operator Referral -Continue Lyrica 75mg PO BID Acute on Chronic Kidney Disease -BUN/Cr 35/2.0 today, baseline Cr 1.4 -F/U urine sodium, urine creatinine -Avoid Nephrotoxic agents History of CHF -Continue Coreg 6.25 mg PO BID -Continue Imdur 60 mg PO daily -Continue ASA 81 mg PO daily History of A-fib -Rate control with Coreg 6.25 mg PO BID -Anticoagulate with Xarelto 25 mg PO daily History of Hyperlipidemia -Continue Crestor 10 mg PO daily -Lipid panel within normal limits History of Hypertension -Coreg and Imdur as above Prophylactic Measure -Protonix 40 mg PO daily -Xarelto 20 mg PO daily -Heart Healthy Diet Further recommendations per Dr Dewitt
[2017-04-29] MEDS: Pantoprazole 40 mg EC Tab PO SCH (10:33)
--- NOTE | 2017-04-29 12:31 | CP.PCM.CON ---
History of Present Illness - History of Present Illness History of Present Illness: Podiatry note for Dr. Luciano 57 year old male with PMHx DM, DVT, HTN, CHF, HLD, MD, Afib was seen at bedside this morning after request for podiatry consultation concerning open wound to plantar aspect of RIGHT foot. Patient is well known to Dr. Luciano. Patient was sent from Dr. Luciano's office for right foot cellulitis. Patient admits to having fever over 100'F 2 days ago and noticed drainage from the right foot. Patient states that he had this plantar ulceration to right foot for many years and it is nothing acute. Patient denies of any recent trauma to the right foot. Patient denies of any N/V/F/C or SOB today Review of Systems - Constitutional Constitutional: As Per HPI Past Patient History - Infectious Disease Hx of Infectious Diseases: None - Past Medical History & Family History Past Medical History?: Yes - Past Social History Smoking Status: Heavy Smoker > 10 Cigarettes Daily - CARDIAC Hx Congestive Heart Failure: Yes Hx Hypercholesterolemia: Yes Hx Hypertension: Yes - PULMONARY Hx Pulmonary Embolism: Yes (CT SCAN 03/11/17-LEFT LOWER LOBE) - NEUROLOGICAL Hx Neurological Disorder: Yes Hx Paralysis: Yes (drop foot, left leg) - HEENT Hx HEENT Problems: No Other/Comment: wears glasses - RENAL Hx Chronic Kidney Disease: No - HEMATOLOGICAL/ONCOLOGICAL Hx Blood Disorders: No - INTEGUMENTARY Hx Dermatological Problems: Yes Other/Comment: Right foot ulcer - MUSCULOSKELETAL/RHEUMATOLOGICAL Hx Arthritis: Yes (hip, arms, neck) Hx Fractures: Yes (left knee 1974) - GASTROINTESTINAL Hx Gastrointestinal Disorders: No - GENITOURINARY/GYNECOLOGICAL Hx Genitourinary Disorders: No - PSYCHIATRIC Hx Substance Use: No (over 17 years ago) - SURGICAL HISTORY Hx Surgeries: Yes Hx Amputation: Yes (1ST DIGIT OF LEFT FOOT) Hx Cardiac Catheterization: Yes (X 3) Hx Orthopedic Surgery: Yes (removal of bones in right foot 04/2013 & 2011) Other/Comment: right Ulnar Collateral Ligament construction 1975,Vena Cava Filter to L LE,[facility]bar Surgery in [facility],R foot Surgery by Dr.Den Castle,. IVC FILTER - ANESTHESIA Hx Anesthesia: Yes Hx Anesthesia Reactions: No Hx Malignant Hyperthermia: No Meds Allergies/Adverse Reactions: Allergies Allergy/AdvReac Type Severity Reaction Status Date / Time vancomycin Allergy Severe SHORTNESS Verified 12/02/16 08:19 OF BREATH - Medications Medications: Current Medications Acetaminophen (Tylenol 325mg Tab) 650 mg PO Q6 PRN PRN Reason: Fever >100.4 F Aspirin (Aspirin Chewable) 81 mg PO DAILY [facility] Last Admin: 04/29/17 10:34 Dose: 81 mg Carvedilol (Coreg) 6.25 mg PO BID [facility] Last Admin: 04/29/17 10:34 Dose: 6.25 mg Tigecycline 50 mg/ Sodium (Chloride) 100 mls @ 100 mls/hr IVPB Q12H [facility] Last Admin: 04/29/17 10:34 Dose: 100 mls/hr Insulin Glargine (Lantus) 50 unit SC HS [facility] Insulin Human Regular (Novolin R) 0 unit SC ACHS [facility] PRN Reason: Protocol Last Admin: 04/29/17 08:25 Dose: 8 unit Isosorbide Mononitrate (Imdur) 60 mg PO DAILY [facility] Last Admin: 04/29/17 10:34 Dose: 60 mg Pantoprazole Sodium (Protonix Ec Tab) 40 mg PO DAILY [facility] Last Admin: 04/29/17 10:33 Dose: 40 mg Pramipexole Dihydrochloride (Mirapex) 0.125 mg PO HS [facility] Pregabalin (Lyrica) 75 mg PO BID [facility] Last Admin: 04/29/17 10:34 Dose: 75 mg Rivaroxaban (Xarelto) 20 mg PO DAILY [facility] Last Admin: 04/29/17 10:34 Dose: 20 mg Rosuvastatin Calcium (Crestor) 10 mg PO HS [facility] Sitagliptin Phosphate (Januvia) 50 mg PO DAILY [facility] Zolpidem Tartrate (Ambien) 5 mg PO HS PRN PRN Reason: Insomnia Last Admin: 04/29/17 01:12 Dose: 5 mg Physical Exam - Constitutional Appears: Well, Non-toxic, No Acute Distress - Head Exam Head Exam: ATRAUMATIC - Extremities Exam Additional comments: Bilateral lower extremity exam DERM: RIGHT: Open wound noted to Plantar aspect of right foot measuring 5cm x 4.5cm x 0.2cm with mostly granular base. Mild serous drainage is noted. No malodor noted. Erythema noted around wound >2cm marginal boarder. No probe to bone. LEFT: Unremarkable. VASC: Non-palpable DP and PT noted bilaterally. [employer]ORTER less than 3 seconds to digits NEURO: Gross sensation diminished; [place] noe monifilament tested multiple focal points plantarly bilaterally ORTHO: RIGHT: No pain on palpation to right foot plantar aspect secondary to neuropathy. - Neurological Exam Neurological exam: Alert, Oriented x3 - Psychiatric Exam Psychiatric exam: Normal Affect, Normal Mood - Skin Skin Exam: Normal Color, Warm Results - Vital Signs Recent Vital Signs: Last Vital Signs Temp 97.6 F 04/29/17 08:00 Pulse 86 04/29/17 08:00 Resp 20 04/29/17 08:00 BP 129/76 04/29/17 08:00 Pulse Ox 95 04/29/17 08:00 - Labs Result Diagrams: 04/29/17 06:56 04/29/17 06:56 Labs: Laboratory Results - last 24 hr 04/28/17 04/28/17 04/29/17 22:20 22:20 06:15 WBC 8.1 RBC 3.38 L Hgb 10.0 L Hct 29.1 L MCV 86.0 MCH 29.6 MCHC 34.5 RDW 12.6 Plt Count 210 MPV 9.8 Neut % (Auto) 63.3 Lymph % (Auto) 20.4 [place] % (Auto) 12.9 H Eos % (Auto) 2.7 Baso % (Auto) 0.7 Neut # 5.2 Lymph # 1.7 [place] # 1.0 H Eos # 0.2 Baso # 0.1 PT INR APTT Sodium 133 Potassium 4.0 Chloride 98 Carbon Dioxide 25 Anion Gap 15 BUN 40 H Creatinine 2.5 H Est GFR ( Amer) 32 Est GFR (Non-Af Amer) 27 POC Glucose (mg/dL) 314 H Random Glucose 281 H Hemoglobin A1c Calcium 8.1 L Total Bilirubin 0.5 AST 26 ALT 24 Alkaline Phosphatase 88 Total Protein 7.0 Albumin 3.6 Globulin 3.3 Albumin/Globulin Ratio 1.1 Triglycerides Cholesterol LDL Cholesterol Direct HDL Cholesterol 04/29/17 04/29/17 04/29/17 06:56 06:56 06:56 WBC 6.8 RBC 3.20 L Hgb 9.6 L Hct 27.8 L MCV 86.8 MCH 30.1 MCHC 34.7 RDW 12.5 Plt Count 186 MPV 9.7 Neut % (Auto) 65.4 Lymph % (Auto) 17.3 L [place] % (Auto) 13.3 H Eos % (Auto) 3.4 Baso % (Auto) 0.6 Neut # 4.5 Lymph # 1.2 [place] # 0.9 H Eos # 0.2 Baso # 0.0 PT INR APTT Sodium 133 Potassium 3.9 Chloride 101 Carbon Dioxide 25 Anion Gap 11 BUN 35 H Creatinine 2.0 H Est GFR ( Amer) 42 Est GFR (Non-Af Amer) 35 POC Glucose (mg/dL) Random Glucose 301 H Hemoglobin A1c 11.8 H Calcium 7.9 L Total Bilirubin 0.2 AST 19 ALT 19 L D Alkaline Phosphatase 85 Total Protein 5.9 L Albumin 3.0 L Globulin 2.9 Albumin/Globulin Ratio 1.0 Triglycerides 89 Cholesterol 57 LDL Cholesterol Direct < 30 HDL Cholesterol 20 L 04/29/17 04/29/17 06:56 11:33 WBC RBC Hgb Hct MCV MCH MCHC RDW Plt Count MPV Neut % (Auto) Lymph % (Auto) [place] % (Auto) Eos % (Auto) Baso % (Auto) Neut # Lymph # [place] # Eos # Baso # PT 13.9 H INR 1.2 APTT 34 Sodium Potassium Chloride Carbon Dioxide Anion Gap BUN Creatinine Est GFR ( Amer) Est GFR (Non-Af Amer) POC Glucose (mg/dL) 312 H Random Glucose Hemoglobin A1c Calcium Total Bilirubin AST ALT Alkaline Phosphatase Total Protein Albumin Globulin Albumin/Globulin Ratio Triglycerides Cholesterol LDL Cholesterol Direct HDL Cholesterol Assessment & Plan - Assessment and Plan (Free Text) Assessment: 57 yo male patient presents with open wound to plantar aspect of right foot with cellulitis Plan: Patient was seen, evaluated and treated labs and vitals reviewed Discussed with attending Dr. Luciano Right foot cleansed with Saline, Peroxide, DSD wet to dry. BID Continue IV antibiotics per ID No plan for surgical treatment Patient to be Non-weight bearing to right foot ESR ordered WCX pending Podiatry will continue to follow in house
[2017-04-29 17:10] LABS: CREATININE, RANDOM URINE 99.4 mg/dL
[2017-04-29] MEDS ORDERED: Oxycodone/Acetaminophen 5/325 mg Tab PO PRN (18:30)
[2017-04-29] MEDS: oxyCODONE 10 mg ER Tab (oxyCONTIN) PO SCH (21:50)
[2017-04-29] MEDS: (Lantus) Insulin Glargine, Recombinant SC SCH (21:51)
[2017-04-30] MEDS: (Novolin R) Insulin Human Regular 100 units/ml vial SC SCH ×4 (07:31→22:05)
--- NOTE | 2017-04-30 07:45 | CP.PCM.PN ---
Subjective - Date & Time of Evaluation Date of Evaluation: 04/30/17 Time of Evaluation: 07:40 - Subjective Subjective: Medicine Progress Note: Dr Dewitt Service No acute events overnight noted. Patient is doing well, he says he is not longer having fever/chills as he was 2 days ago. He says the podiatry resident came to see him and changed his dressing. At this time he offers no complaints. Denies headaches, dizziness, cp, palpitations, sob, abdominal pain, urinary symptoms, changes in bowel habits. Objective - Vital Signs/Intake and Output Vital Signs (last 24 hours): Temp Pulse Resp BP Pulse Ox 97.5 F L 72 18 132/77 95 04/29/17 23:30 04/29/17 23:30 04/29/17 23:30 04/29/17 23:30 04/29/17 23:30 - Medications Medications: Current Medications Acetaminophen (Tylenol 325mg Tab) 650 mg PO Q6 PRN PRN Reason: Fever >100.4 F Aspirin (Aspirin Chewable) 81 mg PO DAILY [facility] Last Admin: 04/29/17 10:34 Dose: 81 mg Carvedilol (Coreg) 6.25 mg PO BID [facility] Last Admin: 04/29/17 18:14 Dose: 6.25 mg Tigecycline 50 mg/ Sodium (Chloride) 100 mls @ 100 mls/hr IVPB Q12H [facility] Last Admin: 04/29/17 21:50 Dose: 100 mls/hr Insulin Glargine (Lantus) 50 unit SC HS [facility] Last Admin: 04/29/17 21:51 Dose: 50 unit Insulin Human Regular (Novolin R) 0 unit SC ACHS [facility] PRN Reason: Protocol Last Admin: 04/30/17 07:31 Dose: 2 unit Isosorbide Mononitrate (Imdur) 60 mg PO DAILY [facility] Last Admin: 04/29/17 10:34 Dose: 60 mg Oxycodone HCl (Oxycontin Extended Release Tab) 10 mg PO Q12 [facility] Stop: 05/02/17 22:01 Last Admin: 04/29/17 21:50 Dose: 10 mg Oxycodone/Acetaminophen (Percocet 5/325 Mg Tab) 1 tab PO Q6H PRN PRN Reason: Pain, moderate (4-7) Stop: 05/02/17 18:31 Last Admin: 04/29/17 19:41 Dose: 1 tab Pantoprazole Sodium (Protonix Ec Tab) 40 mg PO DAILY [facility] Last Admin: 04/29/17 10:33 Dose: 40 mg Pramipexole Dihydrochloride (Mirapex) 0.125 mg PO HS [facility] Last Admin: 04/29/17 22:04 Dose: Not Given Pregabalin (Lyrica) 75 mg PO BID [facility] Last Admin: 04/29/17 18:14 Dose: 75 mg Rivaroxaban (Xarelto) 20 mg PO DAILY [facility] Last Admin: 04/29/17 10:34 Dose: 20 mg Rosuvastatin Calcium (Crestor) 10 mg PO HS [facility] Last Admin: 04/29/17 21:50 Dose: 10 mg Sitagliptin Phosphate (Januvia) 50 mg PO DAILY [facility] Zolpidem Tartrate (Ambien) 5 mg PO HS PRN PRN Reason: Insomnia Last Admin: 04/29/17 21:50 Dose: 5 mg - Labs Labs: 04/29/17 06:56 04/29/17 06:56 PT 13.9 SECONDS (9.7-12.2) H 04/29/17 06:56 INR 1.2 04/29/17 06:56 APTT 34 SECONDS (21-34) 04/29/17 06:56 - Additional Findings Additional findings: - Constitutional Appears: Well, No Acute Distress - Head Exam Head Exam: ATRAUMATIC, NORMAL INSPECTION - Eye Exam Eye Exam: EOMI, Normal appearance - ENT Exam ENT Exam: Mucous Membranes Moist - Neck Exam Neck Exam: Full ROM - Respiratory Exam Respiratory Exam: Clear to Ausculation Bilateral, NORMAL BREATHING PATTERN. absent: Rales, Rhonchi, Wheezes - Cardiovascular Exam Cardiovascular Exam: REGULAR RHYTHM, +S1, +S2 - GI/Abdominal Exam GI & Abdominal Exam: Soft, Normal Bowel Sounds. absent: Firm, Guarding, Rigid, Tenderness - Extremities Exam Extremities Exam: absent: Tenderness Additional comments: Per Podiatry note: DERM: RIGHT: Open wound noted to Plantar aspect of right foot measuring 5cm x 4.5cm x 0.2cm with mostly granular base. Mild serous drainage is noted. No malodor noted. Erythema noted around wound >2cm marginal boarder. No probe to bone. LEFT: Unremarkable. VASC: Non-palpable DP and PT noted bilaterally. AUTO WASHER less than 3 seconds to digits NEURO: Gross sensation diminished; [place] noe monifilament tested multiple focal points plantarly bilaterally ORTHO: RIGHT: No pain on palpation to right foot plantar aspect secondary to neuropathy. - Neurological Exam Neurological Exam: Alert, Awake, Oriented x3 - Psychiatric Exam Psychiatric exam: Normal Affect, Normal Mood - Skin Skin Exam: Dry, Normal Color, Warm Assessment and Plan - Assessment and Plan (Free Text) Assessment: Right Foot Wound -Stable, afebrile -Well known to Dr. Luciano. Patient was sent from Dr. Luciano's office for possible right foot cellulitis -ID consult, Dr. Kothari, help appreciated -Podiatry consult, Dr. Luciano, help appreciated * Right foot cleansed with Saline, Peroxide, DSD wet to dry, BID * No plan for surgical treatment -F/U blood cultures -Wound gram stain NEGATIVE, F/U wound culture -Patient to be non-weight bearing on right foot Meds: -Antibiotics: Tygacil 50mg Q12H IV -Tylenol 650mg PO Q6H prn fever -Oxycontin 10mg PO BID -Percocet 1 tab PO QID PRN History of Diabetes Mellitus (uncontrolled), peripheral neuropathy -HgA1C 11.8 -Continue Lantus 50 units HS -Continue Januvia 100 mg PO daily -Regular ISS added for additional coverage -Accuchecks ACHS -Pharmaceutical Engineer, Agriculture Teacher Referral -Continue Lyrica 75mg PO BID Acute on Chronic Kidney Disease -BUN/Cr 40/2.5 on admission, baseline Cr 1.4 -urine sodium 53, urine creatinine 99 -Avoid Nephrotoxic agents History of CHF -Continue Coreg 6.25 mg PO BID -Continue Imdur 60 mg PO daily -Continue ASA 81 mg PO daily History of A-fib -Rate control with Coreg 6.25 mg PO BID -Anticoagulate with Xarelto 25 mg PO daily History of Hyperlipidemia -Continue Crestor 10 mg PO daily -Lipid panel within normal limits History of Hypertension -Coreg and Imdur as above Prophylactic Measure -Protonix 40 mg PO daily -Xarelto 20 mg PO daily -Heart Healthy Diet Further medical management per Dr Dewitt
[2017-04-30 08:26] LABS: BASO # 0.1 K/uL (0.0-0.2); BASO % 0.9 % (0.0-2.0); EOS # 0.3 K/uL (0.0-0.7); EOS % 3.9 % (0.0-4.0); HEMOGLOBIN 10.5 g/dL (12.0-18.0); LYMPH % 21.8 % (20.0-40.0); MEAN CELL VOLUME 86.5 fL (80.0-94.0); MEAN CORPUSCULAR HEMOGLOBIN 30.5 pg (27.0-31.0); MEAN CORPUSCULAR HGB CONC 35.2 g/dL (33.0-37.0); MONO # 0.9 K/uL (0.0-0.8); MONO % 10.1 % (0.0-10.0); NEUT # 5.7 K/uL (1.8-7.0); NEUT % 63.3 % (50.0-75.0); RBC 3.45 Mil/uL (4.40-5.90); RED CELL DISTRIBUTION WIDTH 12.7 % (11.5-14.5)
[2017-04-30 08:44] LABS: ALBUMIN 3.1 g/dL (3.5-5.0); CALCIUM 8.2 mg/dl (8.6-10.4)
[2017-04-30] MEDS: Pantoprazole 40 mg EC Tab PO SCH (10:13)
[2017-04-30] MEDS: oxyCODONE 10 mg ER Tab (oxyCONTIN) PO SCH ×2 (10:16→22:11)
--- NOTE | 2017-04-30 14:02 | CP.PCM.PN ---
Subjective - Date & Time of Evaluation Date of Evaluation: 04/30/17 Time of Evaluation: 12:59 - Subjective Subjective: Podiatry note for Dr. Luciano 57 year old male patient was seen at bedside this morning with attending Dr. Luciano concerning open wound to plantar aspect of RIGHT foot. Patient was resting comfortably in bed at the time of visit, and denied of any acute overnight distress. AAOx3. Dressing to Right foot remains clean dry and intact. Patient denies of any other pedal complaints. Patient denies of any N/V/F/C or SOB today Objective - Vital Signs/Intake and Output Vital Signs (last 24 hours): Temp Pulse Resp BP Pulse Ox 97.5 F L 72 18 132/77 95 04/29/17 23:30 04/29/17 23:30 04/29/17 23:30 04/29/17 23:30 04/29/17 23:30 - Medications Medications: Current Medications Acetaminophen (Tylenol 325mg Tab) 650 mg PO Q6 PRN PRN Reason: Fever >100.4 F Aspirin (Aspirin Chewable) 81 mg PO DAILY [facility] Last Admin: 04/30/17 10:13 Dose: 81 mg Carvedilol (Coreg) 6.25 mg PO BID [facility] Last Admin: 04/30/17 10:13 Dose: 6.25 mg Tigecycline 50 mg/ Sodium (Chloride) 100 mls @ 100 mls/hr IVPB Q12H [facility] Last Admin: 04/30/17 10:13 Dose: 100 mls/hr Insulin Glargine (Lantus) 50 unit SC HS [facility] Last Admin: 04/29/17 21:51 Dose: 50 unit Insulin Human Regular (Novolin R) 0 unit SC ACHS [facility] PRN Reason: Protocol Last Admin: 04/30/17 12:20 Dose: Not Given Isosorbide Mononitrate (Imdur) 60 mg PO DAILY [facility] Last Admin: 04/30/17 10:12 Dose: 60 mg Oxycodone HCl (Oxycontin Extended Release Tab) 10 mg PO Q12 [facility] Stop: 05/02/17 22:01 Last Admin: 04/30/17 10:16 Dose: 10 mg Oxycodone/Acetaminophen (Percocet 5/325 Mg Tab) 1 tab PO Q6H PRN PRN Reason: Pain, moderate (4-7) Stop: 05/02/17 18:31 Last Admin: 04/29/17 19:41 Dose: 1 tab Pantoprazole Sodium (Protonix Ec Tab) 40 mg PO DAILY [facility] Last Admin: 04/30/17 10:13 Dose: 40 mg Pramipexole Dihydrochloride (Mirapex) 0.125 mg PO [facility] Last Admin: 04/29/17 22:04 Dose: Not Given Pregabalin (Lyrica) 75 mg PO BID [facility] Last Admin: 04/30/17 10:12 Dose: 75 mg Rivaroxaban (Xarelto) 20 mg PO DAILY [facility] Last Admin: 04/30/17 10:12 Dose: 20 mg Rosuvastatin Calcium (Crestor) 10 mg PO HS [facility] Last Admin: 04/29/17 21:50 Dose: 10 mg Sitagliptin Phosphate (Januvia) 50 mg PO DAILY [facility] Last Admin: 04/30/17 10:13 Dose: 50 mg Zolpidem Tartrate (Ambien) 5 mg PO HS PRN PRN Reason: Insomnia Last Admin: 04/29/17 21:50 Dose: 5 mg - Labs Labs: 04/30/17 07:58 04/30/17 07:58 PT 13.9 SECONDS (9.7-12.2) H 04/29/17 06:56 INR 1.2 04/29/17 06:56 APTT 34 SECONDS (21-34) 04/29/17 06:56 - Constitutional Appears: Well, Non-toxic, No Acute Distress - Head Exam Head Exam: ATRAUMATIC - Extremities Exam Additional comments: Bilateral lower extremity exam DERM: RIGHT: Open wound noted to Plantar aspect of right foot measuring 5cm x 4.5cm x 0.2cm with mostly granular base. Mild serous drainage is noted. No malodor noted. Erythema noted around wound >2cm marginal boarder. No probe to bone. LEFT: Unremarkable. VASC: Non-palpable DP and PT noted bilaterally. CLINICAL INFORMATICS MANAGER less than 3 seconds to digits NEURO: Gross sensation diminished; [place] noe monifilament tested multiple focal points plantarly bilaterally ORTHO: RIGHT: No pain on palpation to right foot plantar aspect secondary to neuropathy. - Neurological Exam Neurological Exam: Alert, Awake, Oriented x3 - Psychiatric Exam Psychiatric exam: Normal Affect, Normal Mood - Skin Skin Exam: Normal Color, Warm Assessment and Plan - Assessment and Plan (Free Text) Assessment: 57 yo male patient presents with open wound to plantar aspect of right foot with cellulitis Plan: Patient was seen, evaluated and treated labs and vitals reviewed Discussed with attending Dr. Luciano Right foot cleansed with Peroxide, DSD wet to dry. BID Continue IV antibiotics per ID No plan for surgical treatment Patient to be Non-weight bearing to right foot ESR 85 WCX Gram (+) Cocci Prelim Podiatry will continue to follow in house
--- NOTE | 2017-04-30 15:25 | RAD ---
PROCEDURE: Right Foot Radiographs. HISTORY: right foot pain COMPARISON: 08/01/2013 FINDINGS: BONES: No acute fracture. Status post osteotomy distal 2nd through 5th metatarsal. Healed fracture base of the 1st metatarsal with medial subluxation of metatarsal at TMT 1. No acute fracture. Plantar calcaneal spur noted. Pes planus deformity. No osseous erosion or periosteal reaction appreciated. JOINTS: As above SOFT TISSUES: Normal. OTHER FINDINGS: None. IMPRESSION: No acute abnormality. Osteotomy distal aspect 2nd through 5th metatarsal. Healed fracture base of 1st metatarsal. .
--- NOTE | 2017-04-30 18:39 | CP.PCM.CON ---
History of Present Illness - History of Present Illness History of Present Illness: 57 year old male with PMHx of Dm type 2, CHF, chronic pain syndrome, peripheral neuropathy presents today for evaluation of a 5 cm wound to the sole of the right foot. Patient reports he first noted the wound on Wednesday states he was febrile then 103, and his legs were swollen. Patient reports he went to see the heel room supervisor today who cut open the wound and drained it. Varnish Mixer told the patient to come to the ED for admission Has hx multiple infections and MRSA in past , s/p amp left great toe, charcot foot bilat, severe neuropathy ++ allergies Vanco ? cubicin - Medical History PMH: Arthritis (hip, arms, neck), Back Problems, CHF, Diabetes, Fractures (left knee 1974), HTN, Hypercholesterolemia, Pulmonary Embolism (CT SCAN 03/11/17- LEFT LOWER LOBE) Denies: Chronic Kidney Disease Surgical History: No Surg Hx - [facility] Procedures CENTRAL VENOUS CATHETER PLACEMENT WITH GUIDANCE (08/01/13) DETACHMENT AT LEFT 1ST TOE, COMPLETE, OPEN APPROACH (10/22/16) INSERTION OF INFUSION DEV INTO SUP VENA CAVA, PERC APPROACH (02/28/16) LOC EXC BONE LESION NEC (08/30/13) LOC EXC LES METATAR/TAR (08/01/13) METATAR/TAR SEQUESTREC (08/01/13) NONEXCIS DEBRID OF WOUND, INFECT, OR BURN (08/30/13) TOT OSTECT-METATARS/TARS (05/04/13) Review of Systems - Constitutional Constitutional: As Per HPI - EENT Eyes: absent: As Per HPI, Blind Spots, Blurred Vision, Change in Vision, Decreased Night Vision, Diplopia, Discharge, Dry Eye, Exophthalmos, Floaters, Irritation, Itchy Eyes, Loss of Peripheral Vision, Pain, Photophobia, Requires Corrective Lenses, Sees Flashes, Spots in Vision, Tunnel Vision, Other Visual Disturbances, Loss of Vision, Other Ears: absent: As Per HPI, Decreased Hearing, Ear Discharge, Ear Pain, Tinnitus, Abnormal Hearing, Disequilibrium, Dizziness, Other Nose/Mouth/Throat: absent: As Per HPI, Epistaxis, Nasal Congestion, Nasal Discharge, Nasal Obstruction, Nasal Trauma, Nose Pain, Post Nasal Drip, Sinus Pain, Sinus Pressure, Bleeding Gums, Change in Voice, Dental Pain, Dry Mouth, Dysphagia, Halitosis, Hoarsness, Lip Swelling, Mouth Lesions, Mouth Pain, Odynophagia, Sore Throat, Throat Swelling, Tongue Swelling, Facial Pain, Neck Pain, Neck Mass, Other - Cardiovascular Cardiovascular: absent: As Per HPI, Acrocyanosis, Chest Pain, Chest Pain at Rest , Chest Pain with Activity, Claudication, Diaphoresis, Dyspnea, Dyspnea on Exertion, Edema, Irregular Heart Rhythm, Pain Radiating to Arm/Neck/Jaw, Leg Edema, Leg Ulcers, Lightheadedness, Orthopnea, Palpitations, Paroxysmal Nocturnal Dyspnea, Pedal Edema, Radiating Pain, Rapid Heart Rate, Slow Heart Rate, Syncope, Other - Respiratory Respiratory: absent: As Per HPI, Cough, Dyspnea, Hemoptysis, Dyspnea on Exertion , Wheezing, Snoring, Stridor, Pain on Inspiration, Chest Congestion, Excessive Mucous Production, Change in Mucous Color, Pain with Coughing, Other - Gastrointestinal Gastrointestinal: absent: As Per HPI, Abdominal Pain, Belching, Bloating, Change in Bowel Habits, Change in Stool Character, Coffee Ground Emesis, Constipation, Cramping, Diarrhea, Dyspepsia, Dysphagia, Early Satiety, Excessive Flatus, Fecal Incontinence, Heartburn, Hematemesis, Hematochezia, Loose Stools, Melena, Nausea, Odynophagia, Temesmus, Vomiting, Other - Genitourinary Genitourinary: absent: As Per HPI, Change in Urinary Stream, Difficulty Urinating, Dysuria, Flank Pain, Hematuria, Pyuria, Nocturia, Urinary Incontinence, Urinary Frequency, Urinary Hesitance, Urinary Urgency, Voiding Freq/Small Amts, Freq UTI, Hx Renal/Bladder Calculi, Hx /Renal Surgery, Bladder Distension, Other - Musculoskeletal Musculoskeletal: absent: As Per HPI, Abnormal Gait, Arthralgias, Atrophy, Back Pain, Deformity, Joint Swelling, Limited Range of Motion, Loss of Height, Muscle Cramps, Muscle Weakness, Myalgias, Neck Pain, Numbness, Radiating Pain into Limb, Stiffness, Tingling, Other - Integumentary Integumentary: As Per HPI, Dry Skin, Skin Pain, Wounds - Neurological Neurological: As Per HPI, Paresthesias, Sensory Deficit - Psychiatric Psychiatric: absent: As Per HPI, Abnormal Sleep Pattern, Anhedonia, Anxiety, Auditory Hallucinations, Behavioral Changes, Change in Appetite, Change in Libido, Confusion, Depression, Difficulty Concentrating, Hallucinations, Homicidal Ideation, Hopelessness, Irritability, Memory Loss, Mood Swings, Panic Attacks, Paranoia, Suicidal Ideation, Visual Hallucinations, Tactile Hallucinations, Other - Endocrine Endocrine: absent: As Per HPI, Change in Body Appearance, Change in Libido, Cold Intolorance, Deepening of Voice, Excessive Sweating, Fatigue, Flushing, Heat Intolorance, Increase in Ring/Shoe/Hat Size, Palpitations, Polydipsia, Polyphagia, Polyuria, Other - Hematologic/Lymphatic Hematologic: absent: As Per HPI, Easy Bleeding, Easy Bruising, Lymphadenopathy, Other Past Patient History - Infectious Disease Hx of Infectious Diseases: None - Past Medical History & Family History Past Medical History?: Yes - Past Social History Smoking Status: Heavy Smoker > 10 Cigarettes Daily - CARDIAC Hx Congestive Heart Failure: Yes Hx Hypercholesterolemia: Yes Hx Hypertension: Yes - PULMONARY Hx Pulmonary Embolism: Yes (CT SCAN 03/11/17-LEFT LOWER LOBE) - NEUROLOGICAL Hx Neurological Disorder: Yes Hx Paralysis: Yes (drop foot, left leg) - HEENT Hx HEENT Problems: No Other/Comment: wears glasses - RENAL Hx Chronic Kidney Disease: No - HEMATOLOGICAL/ONCOLOGICAL Hx Blood Disorders: No - INTEGUMENTARY Hx Dermatological Problems: Yes Other/Comment: Right foot ulcer - MUSCULOSKELETAL/RHEUMATOLOGICAL Hx Arthritis: Yes (hip, arms, neck) Hx Fractures: Yes (left knee 1974) - GASTROINTESTINAL Hx Gastrointestinal Disorders: No - GENITOURINARY/GYNECOLOGICAL Hx Genitourinary Disorders: No - PSYCHIATRIC Hx Substance Use: No (over 17 years ago) - SURGICAL HISTORY Hx Surgeries: Yes Hx Amputation: Yes (1ST DIGIT OF LEFT FOOT) Hx Cardiac Catheterization: Yes (X 3) Hx Orthopedic Surgery: Yes (removal of bones in right foot 04/2013 & 2011) Other/Comment: right Ulnar Collateral Ligament construction 1975,Vena Cava Filter to L LE,Lumbar Surgery in [facility],R foot Surgery by Dr.Den Castle,. IVC FILTER - ANESTHESIA Hx Anesthesia: Yes Hx Anesthesia Reactions: No Hx Malignant Hyperthermia: No Meds Allergies/Adverse Reactions: Allergies Allergy/AdvReac Type Severity Reaction Status Date / Time vancomycin Allergy Severe SHORTNESS Verified 12/02/16 08:19 OF BREATH - Medications Medications: Current Medications Acetaminophen (Tylenol 325mg Tab) 650 mg PO Q6 PRN PRN Reason: Fever >100.4 F Aspirin (Aspirin Chewable) 81 mg PO DAILY [facility] Last Admin: 04/30/17 10:13 Dose: 81 mg Carvedilol (Coreg) 6.25 mg PO BID [facility] Last Admin: 04/30/17 10:13 Dose: 6.25 mg Tigecycline 50 mg/ Sodium (Chloride) 100 mls @ 100 mls/hr IVPB Q12H [facility] Last Admin: 04/30/17 10:13 Dose: 100 mls/hr Insulin Glargine (Lantus) 50 unit SC HS [facility] Last Admin: 04/29/17 21:51 Dose: 50 unit Insulin Human Regular (Novolin R) 0 unit SC ACHS [facility] PRN Reason: Protocol Last Admin: 04/30/17 12:20 Dose: Not Given Isosorbide Mononitrate (Imdur) 60 mg PO DAILY [facility] Last Admin: 04/30/17 10:12 Dose: 60 mg Oxycodone HCl (Oxycontin Extended Release Tab) 10 mg PO Q12 [facility] Stop: 05/02/17 22:01 Last Admin: 04/30/17 10:16 Dose: 10 mg Oxycodone/Acetaminophen (Percocet 5/325 Mg Tab) 1 tab PO Q6H PRN PRN Reason: Pain, moderate (4-7) Stop: 05/02/17 18:31 Last Admin: 04/29/17 19:41 Dose: 1 tab Pantoprazole Sodium (Protonix Ec Tab) 40 mg PO DAILY [facility] Last Admin: 04/30/17 10:13 Dose: 40 mg Pramipexole Dihydrochloride (Mirapex) 0.125 mg PO HS [facility] Last Admin: 04/29/17 22:04 Dose: Not Given Pregabalin (Lyrica) 75 mg PO BID [facility] Last Admin: 04/30/17 10:12 Dose: 75 mg Rivaroxaban (Xarelto) 20 mg PO DAILY [facility] Last Admin: 04/30/17 10:12 Dose: 20 mg Rosuvastatin Calcium (Crestor) 10 mg PO HS [facility] Last Admin: 04/29/17 21:50 Dose: 10 mg Sitagliptin Phosphate (Januvia) 50 mg PO DAILY [facility] Last Admin: 04/30/17 10:13 Dose: 50 mg Zolpidem Tartrate (Ambien) 5 mg PO HS PRN PRN Reason: Insomnia Last Admin: 04/29/17 21:50 Dose: 5 mg Physical Exam - Constitutional Appears: Non-toxic, Chronically Ill - Head Exam Head Exam: ATRAUMATIC, NORMAL INSPECTION, NORMOCEPHALIC - Eye Exam Eye Exam: EOMI, PERRL. absent: Scleral icterus - ENT Exam ENT Exam: Mucous Membranes Dry, Normal External Ear Exam - Neck Exam Neck exam: Negative for: Lymphadenopathy - Respiratory Exam Respiratory Exam: Decreased Breath Sounds - Cardiovascular Exam Cardiovascular Exam: REGULAR RHYTHM, +S1, +S2 - GI/Abdominal Exam GI & Abdominal Exam: Diminished Bowel Sounds, Soft. absent: Tenderness - Rectal Exam Rectal Exam: Deferred - Exam Exam: NORMAL INSPECTION - Extremities Exam Extremities exam: Positive for: pedal edema, tenderness, pedal pulses present. Negative for: calf tenderness Additional comments: left hallux amp site dry right foot plantar ulcer- no pus or foul smell + erythema - Back Exam Back exam: absent: CVA tenderness (L), CVA tenderness (R) - Neurological Exam Neurological exam: Alert, CN II-XII Intact, Oriented x3, Reflexes Normal - Psychiatric Exam Psychiatric exam: Normal Mood - Skin Skin Exam: Dry Results - Vital Signs Recent Vital Signs: Last Vital Signs Temp 97.5 F L 04/29/17 23:30 Pulse 72 04/29/17 23:30 Resp 18 04/29/17 23:30 BP 132/77 04/29/17 23:30 Pulse Ox 95 04/29/17 23:30 - Labs Result Diagrams: 04/30/17 07:58 04/30/17 07:58 Labs: Laboratory Results - last 24 hr 04/29/17 04/30/17 04/30/17 21:09 06:28 07:58 WBC 9.0 RBC 3.45 L Hgb 10.5 L Hct 29.8 L MCV 86.5 MCH 30.5 MCHC 35.2 RDW 12.7 Plt Count 215 MPV 10.0 Neut % (Auto) 63.3 Lymph % (Auto) 21.8 Ellis % (Auto) 10.1 H Eos % (Auto) 3.9 Baso % (Auto) 0.9 Neut # 5.7 Lymph # 2.0 Ellis # 0.9 H Eos # 0.3 Baso # 0.1 Sodium Potassium Chloride Carbon Dioxide Anion Gap BUN Creatinine Est GFR ( Amer) Est GFR (Non-Af Amer) POC Glucose (mg/dL) 221 H 186 H Random Glucose Calcium Total Bilirubin AST ALT Alkaline Phosphatase Total Protein Albumin Globulin Albumin/Globulin Ratio 04/30/17 04/30/17 04/30/17 07:58 12:30 16:19 WBC RBC Hgb Hct MCV MCH MCHC RDW Plt Count MPV Neut % (Auto) Lymph % (Auto) Ellis % (Auto) Eos % (Auto) Baso % (Auto) Neut # Lymph # Ellis # Eos # Baso # Sodium 133 Potassium 4.3 Chloride 102 Carbon Dioxide 27 Anion Gap 9 L BUN 42 H Creatinine 1.9 H Est GFR ( Amer) 44 Est GFR (Non-Af Amer) 37 POC Glucose (mg/dL) 97 207 H Random Glucose 185 H Calcium 8.2 L Total Bilirubin 0.3 AST 20 ALT 23 Alkaline Phosphatase 97 Total Protein 6.2 L Albumin 3.1 L Globulin 3.1 Albumin/Globulin Ratio 1.0 Assessment & Plan (1) Diabetic foot infection Status: Acute (2) Diabetic foot ulcer Status: Acute (3) A-fib Status: Acute (4) CAD (coronary artery disease) Status: Acute (5) CHF (congestive heart failure) Status: Acute (6) History of DVT (deep vein thrombosis) Status: Acute (7) History of amputation of hallux Status: Acute - Assessment and Plan (Free Text) Assessment: await cultures, MRI foot cont tygacil for now
[2017-04-30] MEDS: (Lantus) Insulin Glargine, Recombinant SC SCH (21:59)
--- NOTE | 2017-04-30 23:20 | CON ---
DATE: 04/30/2017 REQUESTING PHYSICIAN: Dr. Dewitt. HISTORY OF PRESENT ILLNESS: This is a 57-year-old male well known to me from prior surgical procedures on both feet, which all have healed well at this time. We see an ulcer on the plantar aspect of the right foot when he present to me on this Wednesday. This time, the patient elicited history of febrile episodes with draining lesion on the plantar aspect of his right foot. Today, we see him alert, oriented x3 at bedside. The right foot cellulitis is moderately abated since Wednesday's visit. The patient will need IV antibiotics appropriately ordered by Dr. Kothari. Routine imaging studies and peroxide irrigation to the right foot q. 12 with sterile 4 x 4s, Emre, and tape. He will need a modified surgical shoe, which he has at home. Suggested that the bring it to bedside and we will start this weightbearing modality mode on Wednesday. IV antibiotics and imaging ordered. Early Charcot changes cannot be ruled out at this time. Sylvester Juarez DPM
--- NOTE | 2017-05-01 08:18 | CP.PCM.PN ---
Subjective - Date & Time of Evaluation Date of Evaluation: 05/01/17 Time of Evaluation: 09:40 - Subjective Subjective: Dr. Dewitt note: Patient is a 57 year old male with a history of uncontrolled. Patient is not complaining of anything. he does have some swelling in his legs were is chronic. Objective - Vital Signs/Intake and Output Vital Signs (last 24 hours): Temp Pulse Resp BP Pulse Ox 97.5 F L 88 18 158/88 H 95 04/29/17 23:30 04/30/17 19:01 04/29/17 23:30 04/30/17 19:01 04/29/17 23:30 Intake and Output: 05/01/17 05/01/17 06:59 18:59 Intake Total 650 Balance 650 - Medications Medications: Current Medications Acetaminophen (Tylenol 325mg Tab) 650 mg PO Q6 PRN PRN Reason: Fever >100.4 F Aspirin (Aspirin Chewable) 81 mg PO DAILY [facility] Last Admin: 04/30/17 10:13 Dose: 81 mg Carvedilol (Coreg) 6.25 mg PO BID [facility] Last Admin: 04/30/17 19:00 Dose: 6.25 mg Tigecycline 50 mg/ Sodium (Chloride) 100 mls @ 100 mls/hr IVPB Q12H [facility] Last Admin: 04/30/17 22:01 Dose: 100 mls/hr Insulin Glargine (Lantus) 50 unit SC HS [facility] Last Admin: 04/30/17 21:59 Dose: 50 unit Insulin Human Regular (Novolin R) 0 unit SC ACHS [facility] PRN Reason: Protocol Last Admin: 04/30/17 22:05 Dose: Not Given Isosorbide Mononitrate (Imdur) 60 mg PO DAILY [facility] Last Admin: 04/30/17 10:12 Dose: 60 mg Oxycodone HCl (Oxycontin Extended Release Tab) 10 mg PO Q12 [facility] Stop: 05/02/17 22:01 Last Admin: 04/30/17 22:11 Dose: 10 mg Oxycodone/Acetaminophen (Percocet 5/325 Mg Tab) 1 tab PO Q6H PRN PRN Reason: Pain, moderate (4-7) Stop: 05/02/17 18:31 Last Admin: 04/29/17 19:41 Dose: 1 tab Pantoprazole Sodium (Protonix Ec Tab) 40 mg PO DAILY [facility] Last Admin: 04/30/17 10:13 Dose: 40 mg Pramipexole Dihydrochloride (Mirapex) 0.125 mg PO [facility] Last Admin: 04/30/17 22:05 Dose: Not Given Pregabalin (Lyrica) 75 mg PO BID [facility] Last Admin: 04/30/17 19:00 Dose: 75 mg Rivaroxaban (Xarelto) 20 mg PO DAILY [facility] Last Admin: 04/30/17 10:12 Dose: 20 mg Rosuvastatin Calcium (Crestor) 10 mg PO HS [facility] Last Admin: 04/30/17 22:01 Dose: 10 mg Sitagliptin Phosphate (Januvia) 50 mg PO DAILY [facility] Last Admin: 04/30/17 10:13 Dose: 50 mg Zolpidem Tartrate (Ambien) 5 mg PO HS PRN PRN Reason: Insomnia Last Admin: 05/01/17 03:13 Dose: 5 mg - Labs Labs: 04/30/17 07:58 04/30/17 07:58 PT 13.9 SECONDS (9.7-12.2) H 04/29/17 06:56 INR 1.2 04/29/17 06:56 APTT 34 SECONDS (21-34) 04/29/17 06:56 - Constitutional Appears: Non-toxic, No Acute Distress - Eye Exam Eye Exam: Normal appearance - Respiratory Exam Respiratory Exam: Clear to Ausculation Bilateral. absent: Rhonchi, Wheezes - Cardiovascular Exam Cardiovascular Exam: REGULAR RHYTHM, RRR, +S1, +S2. absent: Gallop, Rubs - GI/Abdominal Exam GI & Abdominal Exam: Soft. absent: Tenderness, Normal Bowel Sounds - Extremities Exam Extremities Exam: Normal Inspection, Pedal Edema - Back Exam Back Exam: NORMAL INSPECTION - Psychiatric Exam Psychiatric exam: Normal Affect, Normal Mood - Skin Skin Exam: absent: Normal Color (Red cullulitis in his lower extremities. ) Assessment and Plan - Assessment and Plan (Free Text) Assessment: Right Foot Wound 05/01: Patient is on IV antibiotics perNubia Kothari ID wardrobe image consultant. Will need to follow up with him as far as what to switch him to for O medication. Stable, afebrile -Well known to Dr. Luciano. Patient was sent from Dr. Luciano's office for possible right foot cellulitis -ID consult, Dr. Kothari, help appreciated -Podiatry consult, Dr. Luciano, help appreciated * Right foot cleansed with Saline, Peroxide, DSD wet to dry, BID * No plan for surgical treatment -F/U blood cultures -Wound gram stain NEGATIVE, F/U wound culture -Patient to be non-weight bearing on right foot Meds: -Antibiotics: Tygacil 50mg Q12H IV -Tylenol 650mg PO Q6H prn fever -Oxycontin 10mg PO BID -Percocet 1 tab PO QID PRN History of Diabetes Mellitus (uncontrolled), peripheral neuropathy -HgA1C 11.8 -Continue Lantus 50 units HS -Continue Januvia 100 mg PO daily -Regular ISS added for additional coverage -Accuchecks ACHS -Continue Lyrica 75mg PO BID Acute on Chronic Kidney Disease -BUN/Cr 40/2.5 on admission, baseline Cr 1.4 -urine sodium 53, urine creatinine 99 -Avoid Nephrotoxic agents History of CHF -Continue Coreg 6.25 mg PO BID -Continue Imdur 60 mg PO daily -Continue ASA 81 mg PO daily History of A-fib -Rate control with Coreg 6.25 mg PO BID -Anticoagulate with Xarelto 25 mg PO daily History of Hyperlipidemia -Continue Crestor 10 mg PO daily -Lipid panel within normal limits History of Hypertension -Coreg and Imdur as above Prophylactic Measure -Protonix 40 mg PO daily -Xarelto 20 mg PO daily -Heart Healthy Diet Further medical management per Dr Dewitt
[2017-05-01] MEDS: (Novolin R) Insulin Human Regular 100 units/ml vial SC SCH ×4 (08:23→22:10)
[2017-05-01 08:30] LABS: BASO # 0.1 K/uL (0.0-0.2); BASO % 0.9 % (0.0-2.0); EOS # 0.2 K/uL (0.0-0.7); EOS % 2.8 % (0.0-4.0); LYMPH # 1.6 K/uL (1.0-4.3); LYMPH % 17.7 % (20.0-40.0); MEAN CELL VOLUME 86.5 fL (80.0-94.0); MEAN CORPUSCULAR HEMOGLOBIN 30.4 pg (27.0-31.0); MEAN CORPUSCULAR HGB CONC 35.1 g/dL (33.0-37.0); MEAN PLATELET VOLUME 9.5 fL (7.2-11.7); MONO # 0.9 K/uL (0.0-0.8); MONO % 10.7 % (0.0-10.0); NEUT % 67.9 % (50.0-75.0); RBC 3.28 Mil/uL (4.40-5.90); RED CELL DISTRIBUTION WIDTH 12.8 % (11.5-14.5); WHITE BLOOD COUNT 8.8 K/uL (4.8-10.8)
[2017-05-01 08:46] LABS: ALB/GLOB RATIO 0.9 (1.0-2.1); ALBUMIN 2.8 g/dL (3.5-5.0)
[2017-05-01 09:10] VITALS: RESP 20
[2017-05-01] MEDS: Pantoprazole 40 mg EC Tab PO SCH (09:21)
[2017-05-01] MEDS: oxyCODONE 10 mg ER Tab (oxyCONTIN) PO SCH ×2 (09:22→21:49)
--- NOTE | 2017-05-01 13:21 | CP.PCM.PN ---
Subjective - Date & Time of Evaluation Date of Evaluation: 05/01/17 Time of Evaluation: 12:30 - Subjective Subjective: Podiatry note for Dr. Luciano 57 y/o male patient was seen at bedside this morning for open wound to plantar aspect of right foot. Patient was resting comfortably in bed at the time of visit, and denies any acute overnight distress. AAOx3. Dressing to right foot remains clean dry and intact. Patient denies any other pedal complaints. Patient denies F/C/N/V/SOB Objective - Vital Signs/Intake and Output Vital Signs (last 24 hours): Temp Pulse Resp BP Pulse Ox 98 F 76 20 181/96 H 98 05/01/17 08:00 05/01/17 08:00 05/01/17 08:00 05/01/17 08:00 05/01/17 08:00 Intake and Output: 05/01/17 05/01/17 06:59 18:59 Intake Total 650 Balance 650 - Medications Medications: Current Medications Acetaminophen (Tylenol 325mg Tab) 650 mg PO Q6 PRN PRN Reason: Fever >100.4 F Aspirin (Aspirin Chewable) 81 mg PO DAILY [facility] Last Admin: 05/01/17 09:21 Dose: 81 mg Carvedilol (Coreg) 6.25 mg PO BID [facility] Last Admin: 05/01/17 09:21 Dose: 6.25 mg Tigecycline 50 mg/ Sodium (Chloride) 100 mls @ 100 mls/hr IVPB Q12H [facility] Last Admin: 05/01/17 09:21 Dose: 100 mls/hr Insulin Glargine (Lantus) 50 unit SC HS [facility] Last Admin: 04/30/17 21:59 Dose: 50 unit Insulin Human Regular (Novolin R) 0 unit SC ACHS [facility] PRN Reason: Protocol Last Admin: 05/01/17 12:30 Dose: 2 unit Isosorbide Mononitrate (Imdur) 60 mg PO DAILY [facility] Last Admin: 05/01/17 09:21 Dose: 60 mg Oxycodone HCl (Oxycontin Extended Release Tab) 10 mg PO Q12 [facility] Stop: 05/02/17 22:01 Last Admin: 05/01/17 09:22 Dose: 10 mg Oxycodone/Acetaminophen (Percocet 5/325 Mg Tab) 1 tab PO Q6H PRN PRN Reason: Pain, moderate (4-7) Stop: 05/02/17 18:31 Last Admin: 04/29/17 19:41 Dose: 1 tab Pantoprazole Sodium (Protonix Ec Tab) 40 mg PO DAILY [facility] Last Admin: 05/01/17 09:21 Dose: 40 mg Pramipexole Dihydrochloride (Mirapex) 0.125 mg PO HS [facility] Last Admin: 04/30/17 22:05 Dose: Not Given Pregabalin (Lyrica) 75 mg PO BID [facility] Last Admin: 05/01/17 09:21 Dose: 75 mg Rivaroxaban (Xarelto) 20 mg PO DAILY [facility] Last Admin: 05/01/17 09:21 Dose: 20 mg Rosuvastatin Calcium (Crestor) 10 mg PO HS [facility] Last Admin: 04/30/17 22:01 Dose: 10 mg Sitagliptin Phosphate (Januvia) 50 mg PO DAILY [facility] Last Admin: 05/01/17 09:21 Dose: 50 mg Zolpidem Tartrate (Ambien) 5 mg PO HS PRN PRN Reason: Insomnia Last Admin: 05/01/17 03:13 Dose: 5 mg - Labs Labs: 05/01/17 08:23 05/01/17 08:23 PT 13.9 SECONDS (9.7-12.2) H 04/29/17 06:56 INR 1.2 04/29/17 06:56 APTT 34 SECONDS (21-34) 04/29/17 06:56 - Constitutional Appears: Well, Non-toxic, No Acute Distress - Extremities Exam Additional comments: Right lower extremity exam Derm: Open wound noted to plantar aspect of right foot measuring 5cm x 4.5cm x 0.2cm with mostly granular base. No drainage or malodor noted. Erythema noted around wound, mild.No probe to bone. Vasc: Non-palpable DP and PT noted. CFT <3 seconds to all digits Neuro: Gross sensation diminished Ortho: No pain on palpation to right foot plantar aspect secondary to neuropathy - Neurological Exam Neurological Exam: Alert, Awake, Oriented x3 - Psychiatric Exam Psychiatric exam: Normal Affect, Normal Mood Assessment and Plan - Assessment and Plan (Free Text) Assessment: Assessment: 57 yo male patient presents with open wound to plantar aspect of right foot with cellulitis, resolving Plan: Patient was seen, evaluated and treated labs and vitals reviewed - afebrile Discussed with attending Dr. Luciano Right foot cleansed with Peroxide, DSD wet to dry. BID WCX coag neg Staph Continue IV antibiotics per ID No plan for surgical intervention Patient to be non-weight bearing to right foot Podiatry will continue to follow in house
[2017-05-01] MEDS: (Lantus) Insulin Glargine, Recombinant SC SCH (21:53)
--- NOTE | 2017-05-02 01:52 | CP.PCM.PN ---
Subjective - Date & Time of Evaluation Date of Evaluation: 05/02/17 Time of Evaluation: 01:51 - Subjective Subjective: Medicine Progress Note: Dr Dewitt Service Patient seen and examined at bedside. Per nursing no acute events overnight. Patient is doing well, pain is controlled. Offers no complaints at this time. Resting comfortably. Denies headaches, dizziness, cp, palpitations, sob, abdominal pain, urinary symptoms, changes in bowel habits. Objective - Vital Signs/Intake and Output Vital Signs (last 24 hours): Temp Pulse Resp BP Pulse Ox 98.1 F 78 20 135/80 97 05/01/17 23:45 05/01/17 23:45 05/01/17 23:45 05/01/17 23:45 05/01/17 23:45 Intake and Output: 05/01/17 05/02/17 18:59 06:59 Intake Total 380 Balance 380 - Medications Medications: Current Medications Acetaminophen (Tylenol 325mg Tab) 650 mg PO Q6 PRN PRN Reason: Fever >100.4 F Aspirin (Aspirin Chewable) 81 mg PO DAILY [facility] Last Admin: 05/01/17 09:21 Dose: 81 mg Carvedilol (Coreg) 6.25 mg PO BID [facility] Last Admin: 05/01/17 18:04 Dose: 6.25 mg Tigecycline 50 mg/ Sodium (Chloride) 100 mls @ 100 mls/hr IVPB Q12H [facility] Last Admin: 05/01/17 21:54 Dose: 100 mls/hr Insulin Glargine (Lantus) 50 unit SC HS [facility] Last Admin: 05/01/17 21:53 Dose: 50 unit Insulin Human Regular (Novolin R) 0 unit SC ACHS [facility] PRN Reason: Protocol Last Admin: 05/01/17 22:10 Dose: Not Given Isosorbide Mononitrate (Imdur) 60 mg PO DAILY [facility] Last Admin: 05/01/17 09:21 Dose: 60 mg Oxycodone HCl (Oxycontin Extended Release Tab) 10 mg PO Q12 [facility] Stop: 05/02/17 22:01 Last Admin: 05/01/17 21:49 Dose: 10 mg Oxycodone/Acetaminophen (Percocet 5/325 Mg Tab) 1 tab PO Q6H PRN PRN Reason: Pain, moderate (4-7) Stop: 05/02/17 18:31 Last Admin: 04/29/17 19:41 Dose: 1 tab Pantoprazole Sodium (Protonix Ec Tab) 40 mg PO DAILY [facility] Last Admin: 05/01/17 09:21 Dose: 40 mg Pramipexole Dihydrochloride (Mirapex) 0.125 mg PO HS [facility] Last Admin: 05/01/17 21:49 Dose: 0.125 mg Pregabalin (Lyrica) 75 mg PO BID [facility] Last Admin: 05/01/17 18:04 Dose: 75 mg Rivaroxaban (Xarelto) 20 mg PO DAILY [facility] Last Admin: 05/01/17 09:21 Dose: 20 mg Rosuvastatin Calcium (Crestor) 10 mg PO HS [facility] Last Admin: 05/01/17 21:49 Dose: 10 mg Sitagliptin Phosphate (Januvia) 50 mg PO DAILY [facility] Last Admin: 05/01/17 09:21 Dose: 50 mg Zolpidem Tartrate (Ambien) 5 mg PO HS PRN PRN Reason: Insomnia Last Admin: 05/01/17 03:13 Dose: 5 mg - Labs Labs: 05/01/17 08:23 05/01/17 08:23 PT 13.9 SECONDS (9.7-12.2) H 04/29/17 06:56 INR 1.2 04/29/17 06:56 APTT 34 SECONDS (21-34) 04/29/17 06:56 - Additional Findings Additional findings: - Constitutional Appears: Non-toxic, No Acute Distress - Eye Exam Eye Exam: Normal appearance - Respiratory Exam Respiratory Exam: Clear to Ausculation Bilateral. absent: Rhonchi, Wheezes - Cardiovascular Exam Cardiovascular Exam: REGULAR RHYTHM, RRR, +S1, +S2. absent: Gallop, Rubs - GI/Abdominal Exam GI & Abdominal Exam: Soft. absent: Tenderness, Normal Bowel Sounds - Extremities Exam Extremities Exam: Per podiatry assessment: Right lower extremity exam Derm: Open wound noted to plantar aspect of right foot measuring 5cm x 4.5cm x 0.2cm with mostly granular base. No drainage or malodor noted. Erythema noted around wound, mild.No probe to bone. Vasc: Non-palpable DP and PT noted. CFT <3 seconds to all digits Neuro: Gross sensation diminished Ortho: No pain on palpation to right foot plantar aspect secondary to neuropathy - Back Exam Back Exam: NORMAL INSPECTION - Psychiatric Exam Psychiatric exam: Normal Affect, Normal Mood - Skin Skin Exam: absent: Normal Color (Red cellulitis in his lower extremities) Assessment and Plan - Assessment and Plan (Free Text) Assessment: Right Foot Wound -Stable, afebrile -Well known to Dr. Luciano. Patient was sent from Dr. Luciano's office for possible right foot cellulitis -ID consult, Dr. Kothari, help appreciated * Will need to follow up with him as far as what to switch him to for PO medication. -Podiatry consult, Dr. Luciano, help appreciated * Right foot cleansed with Saline, Peroxide, DSD wet to dry, BID * No plan for surgical treatment -Blood cultures showing no growth x 48 hours -Wound gram stain NEGATIVE, growing coagulase negative staph -F/U wound cx sensitivities -Patient to be non-weight bearing on right foot Meds: -Antibiotics: Tygacil 50mg Q12H IV -Tylenol 650mg PO Q6H prn fever -Oxycontin 10mg PO BID -Percocet 1 tab PO QID PRN History of Diabetes Mellitus (uncontrolled), peripheral neuropathy -HgA1C 11.8 -Continue Lantus 50 units HS -Continue Januvia 50 mg PO daily -Regular ISS added for additional coverage -Accuchecks ACHS -Continue Lyrica 75mg PO BID Acute on Chronic Kidney Disease -BUN/Cr 40/2.5 on admission, baseline Cr 1.4 -Urine sodium 53, urine creatinine 99 -Today BUN/Cr 43/1.7 -Avoid Nephrotoxic agents History of CHF -Continue Coreg 6.25 mg PO BID -Continue Imdur 60 mg PO daily -Continue ASA 81 mg PO daily History of A-fib -Rate control with Coreg 6.25 mg PO BID -Anticoagulate with Xarelto 20 mg PO daily History of Hyperlipidemia -Continue Crestor 10 mg PO daily -Lipid panel within normal limits History of Hypertension -Coreg and Imdur as above Prophylactic Measure -Protonix 40 mg PO daily -Xarelto 20 mg PO daily -Heart Healthy Diet Further medical management per Dr Dewitt
[2017-05-02 08:49] LABS: BASO # 0.1 K/uL (0.0-0.2); BASO % 0.7 % (0.0-2.0); EOS # 0.2 K/uL (0.0-0.7); EOS % 2.2 % (0.0-4.0); HEMOGLOBIN 10.3 g/dL (12.0-18.0); LYMPH # 1.8 K/uL (1.0-4.3); LYMPH % 18.5 % (20.0-40.0); MEAN CELL VOLUME 86.4 fL (80.0-94.0); MEAN CORPUSCULAR HGB CONC 34.8 g/dL (33.0-37.0); MEAN PLATELET VOLUME 9.7 fL (7.2-11.7); MONO # 1.1 K/uL (0.0-0.8); MONO % 11.1 % (0.0-10.0); NEUT # 6.8 K/uL (1.8-7.0); NEUT % 67.5 % (50.0-75.0); RBC 3.44 Mil/uL (4.40-5.90); RED CELL DISTRIBUTION WIDTH 12.6 % (11.5-14.5)
[2017-05-02] MEDS: (Novolin R) Insulin Human Regular 100 units/ml vial SC SCH ×4 (08:52→21:09)
[2017-05-02 09:13] LABS: ALB/GLOB RATIO 0.9 (1.0-2.1); ALBUMIN 2.9 g/dL (3.5-5.0)
[2017-05-02] MEDS: oxyCODONE 10 mg ER Tab (oxyCONTIN) PO SCH ×2 (10:41→22:23)
[2017-05-02] MEDS: Pantoprazole 40 mg EC Tab PO SCH (10:41)
--- NOTE | 2017-05-02 14:57 | CP.PCM.PN ---
Subjective - Date & Time of Evaluation Date of Evaluation: 05/02/17 Time of Evaluation: 14:55 - Subjective Subjective: Podiatry note for Dr. Luciano 57 y/o male patient was seen at bedside today for right foot plantar ulcer. Patient resting comfortably in bed at the time of visit, and denies any acute overnight distress events. Dressing to right foot remains clean dry and intact. Patient denies any other pedal complaints. Patient denies F/C/N/V/SOB Objective - Vital Signs/Intake and Output Vital Signs (last 24 hours): Temp Pulse Resp BP Pulse Ox 98.1 F 78 20 135/80 97 05/01/17 23:45 05/01/17 23:45 05/01/17 23:45 05/01/17 23:45 05/01/17 23:45 - Medications Medications: Current Medications Acetaminophen (Tylenol 325mg Tab) 650 mg PO Q6 PRN PRN Reason: Fever >100.4 F Aspirin (Aspirin Chewable) 81 mg PO DAILY [facility] Last Admin: 05/02/17 10:41 Dose: 81 mg Carvedilol (Coreg) 6.25 mg PO BID [facility] Last Admin: 05/02/17 10:43 Dose: 6.25 mg Tigecycline 50 mg/ Sodium (Chloride) 100 mls @ 100 mls/hr IVPB Q12H [facility] Last Admin: 05/02/17 10:41 Dose: Not Given Insulin Glargine (Lantus) 50 unit SC HS [facility] Last Admin: 05/01/17 21:53 Dose: 50 unit Insulin Human Regular (Novolin R) 0 unit SC ACHS [facility] PRN Reason: Protocol Last Admin: 05/02/17 13:21 Dose: 2 unit Isosorbide Mononitrate (Imdur) 60 mg PO DAILY [facility] Last Admin: 05/02/17 10:41 Dose: 60 mg Oxycodone HCl (Oxycontin Extended Release Tab) 10 mg PO Q12 [facility] Stop: 05/02/17 22:01 Last Admin: 05/02/17 10:41 Dose: 10 mg Oxycodone/Acetaminophen (Percocet 5/325 Mg Tab) 1 tab PO Q6H PRN PRN Reason: Pain, moderate (4-7) Stop: 05/02/17 18:31 Last Admin: 04/29/17 19:41 Dose: 1 tab Pantoprazole Sodium (Protonix Ec Tab) 40 mg PO DAILY [facility] Last Admin: 05/02/17 10:41 Dose: 40 mg Pramipexole Dihydrochloride (Mirapex) 0.125 mg PO HS [facility] Last Admin: 05/01/17 21:49 Dose: 0.125 mg Pregabalin (Lyrica) 75 mg PO BID [facility] Last Admin: 05/02/17 10:43 Dose: 75 mg Rivaroxaban (Xarelto) 20 mg PO DAILY [facility] Last Admin: 05/02/17 10:43 Dose: 20 mg Rosuvastatin Calcium (Crestor) 10 mg PO HS [facility] Last Admin: 05/01/17 21:49 Dose: 10 mg Sitagliptin Phosphate (Januvia) 50 mg PO DAILY [facility] Last Admin: 05/02/17 10:43 Dose: 50 mg Zolpidem Tartrate (Ambien) 5 mg PO HS PRN PRN Reason: Insomnia Last Admin: 05/01/17 03:13 Dose: 5 mg - Labs Labs: 05/02/17 08:39 05/02/17 08:37 PT 13.9 SECONDS (9.7-12.2) H 04/29/17 06:56 INR 1.2 04/29/17 06:56 APTT 34 SECONDS (21-34) 04/29/17 06:56 - Constitutional Appears: Well, Non-toxic, No Acute Distress - Extremities Exam Additional comments: Right lower extremity exam Derm: Open wound noted to plantar aspect of right foot measuring 5cm x 4.5cm x 0.2cm with mostly granular base. No drainage or malodor noted. Erythema noted around wound, mild.No probe to bone. Vasc: Non-palpable DP and PT noted. CFT <3 seconds to all digits Neuro: Gross sensation diminished Ortho: No pain on palpation to right foot plantar aspect secondary to neuropathy - Neurological Exam Neurological Exam: Alert, Awake, Oriented x3 - Psychiatric Exam Psychiatric exam: Normal Affect, Normal Mood Assessment and Plan - Assessment and Plan (Free Text) Assessment: 57 yo male patient presents with right plantar foot ulcer with cellulitis, resolving Plan: Patient was seen, evaluated and treated labs and vitals reviewed - afebrile Discussed with attending Dr. Luciano X-ray of right foot reveals no acute abnormalities; no evidence of OM Right foot cleansed with Peroxide, DSD wet to dry. BID WCX coag neg Staph Continue IV antibiotics per ID No plan for surgical intervention Patient to be non-weight bearing to right foot Podiatry will continue to follow in house
--- NOTE | 2017-05-02 17:30 | CP.PCM.PN ---
Subjective - Date & Time of Evaluation Date of Evaluation: 05/02/17 Time of Evaluation: 08:00 - Subjective Subjective: afeb cellulitis less wound dry Objective - Vital Signs/Intake and Output Vital Signs (last 24 hours): Temp Pulse Resp BP Pulse Ox 97.7 F 82 20 156/87 H 98 05/02/17 16:46 05/02/17 16:46 05/02/17 16:46 05/02/17 16:46 05/02/17 16:46 Intake and Output: 05/02/17 05/02/17 06:59 18:59 Intake Total 880 Balance 880 - Medications Medications: Current Medications Acetaminophen (Tylenol 325mg Tab) 650 mg PO Q6 PRN PRN Reason: Fever >100.4 F Aspirin (Aspirin Chewable) 81 mg PO DAILY [facility] Last Admin: 05/02/17 10:41 Dose: 81 mg Carvedilol (Coreg) 6.25 mg PO BID [facility] Last Admin: 05/02/17 10:43 Dose: 6.25 mg Tigecycline 50 mg/ Sodium (Chloride) 100 mls @ 100 mls/hr IVPB Q12H [facility] Last Admin: 05/02/17 10:41 Dose: Not Given Insulin Glargine (Lantus) 50 unit SC HS [facility] Last Admin: 05/01/17 21:53 Dose: 50 unit Insulin Human Regular (Novolin R) 0 unit SC ACHS [facility] PRN Reason: Protocol Last Admin: 05/02/17 13:21 Dose: 2 unit Isosorbide Mononitrate (Imdur) 60 mg PO DAILY [facility] Last Admin: 05/02/17 10:41 Dose: 60 mg Oxycodone HCl (Oxycontin Extended Release Tab) 10 mg PO Q12 [facility] Stop: 05/02/17 22:01 Last Admin: 05/02/17 10:41 Dose: 10 mg Oxycodone/Acetaminophen (Percocet 5/325 Mg Tab) 1 tab PO Q6H PRN PRN Reason: Pain, moderate (4-7) Stop: 05/02/17 18:31 Last Admin: 04/29/17 19:41 Dose: 1 tab Pantoprazole Sodium (Protonix Ec Tab) 40 mg PO DAILY [facility] Last Admin: 05/02/17 10:41 Dose: 40 mg Pramipexole Dihydrochloride (Mirapex) 0.125 mg PO HS [facility] Last Admin: 05/01/17 21:49 Dose: 0.125 mg Pregabalin (Lyrica) 75 mg PO BID [facility] Last Admin: 05/02/17 10:43 Dose: 75 mg Rivaroxaban (Xarelto) 20 mg PO DAILY [facility] Last Admin: 05/02/17 10:43 Dose: 20 mg Rosuvastatin Calcium (Crestor) 10 mg PO HS [facility] Last Admin: 05/01/17 21:49 Dose: 10 mg Sitagliptin Phosphate (Januvia) 50 mg PO DAILY [facility] Last Admin: 05/02/17 10:43 Dose: 50 mg Zolpidem Tartrate (Ambien) 5 mg PO HS PRN PRN Reason: Insomnia Last Admin: 05/01/17 03:13 Dose: 5 mg - Labs Labs: 05/02/17 08:39 05/02/17 08:37 PT 13.9 SECONDS (9.7-12.2) H 04/29/17 06:56 INR 1.2 04/29/17 06:56 APTT 34 SECONDS (21-34) 04/29/17 06:56 - Constitutional Appears: Non-toxic, Chronically Ill - Head Exam Head Exam: NORMOCEPHALIC - Eye Exam Eye Exam: PERRL - ENT Exam ENT Exam: Mucous Membranes Dry - Neck Exam Neck Exam: absent: Lymphadenopathy - Respiratory Exam Respiratory Exam: Decreased Breath Sounds, Clear to Ausculation Bilateral - Cardiovascular Exam Cardiovascular Exam: REGULAR RHYTHM, +S1, +S2 - GI/Abdominal Exam GI & Abdominal Exam: Distended, Soft. absent: Tenderness - Rectal Exam Rectal Exam: Deferred - Exam Exam: NORMAL INSPECTION - Extremities Exam Extremities Exam: absent: Pedal Edema - Back Exam Back Exam: absent: CVA tenderness (L), CVA tenderness (R) - Neurological Exam Neurological Exam: Alert, Awake, Oriented x3 Assessment and Plan (1) Diabetic foot infection Status: Acute (2) Diabetic foot ulcer Status: Acute (3) A-fib Status: Acute (4) CAD (coronary artery disease) Status: Acute (5) CHF (congestive heart failure) Status: Acute (6) History of DVT (deep vein thrombosis) Status: Acute (7) History of amputation of hallux Status: Acute - Assessment and Plan (Free Text) Assessment: cont iv then po rx possible po zyvox
[2017-05-02] MEDS: (Lantus) Insulin Glargine, Recombinant SC SCH (22:22)
[2017-05-03 08:07] VITALS: BP 158/99; PULSE 86; TEMP 98.4; O2SAT 97
[2017-05-03] MEDS: (Novolin R) Insulin Human Regular 100 units/ml vial SC SCH ×2 (08:44→11:58)
--- NOTE | 2017-05-03 09:57 | CP.PCM.DIS ---
Provider - Provider Date of Admission: 04/28/17 22:07 Attending physician: Rene Dewitt Jr, MD Consults: Infectious Disease: Dr Kothari Podiatry: Dr Del Toro Time Spent in preparation of Discharge (in minutes): 31 Hospital Course - Lab Results Lab Results: Micro Results 04/28/17 21:41 Blood Blood Culture - Preliminary NO GROWTH AFTER 4 DAYS 04/28/17 21:41 Blood Blood Culture - Preliminary NO GROWTH AFTER 4 DAYS 04/28/17 22:33 Foot - Right Gram Stain - Final 04/28/17 22:33 Foot - Right Wound Culture - Final Coagulase Neg Staphylococcus Most Recent Lab Values WBC 10.0 K/uL (4.8-10.8) 05/02/17 08:39 RBC 3.44 Mil/uL (4.40-5.90) L 05/02/17 08:39 Hgb 10.3 g/dL (12.0-18.0) L 05/02/17 08:39 Hct 29.7 % (35.0-51.0) L 05/02/17 08:39 MCV 86.4 fL (80.0-94.0) 05/02/17 08:39 MCH 30.0 pg (27.0-31.0) 05/02/17 08:39 MCHC 34.8 g/dL (33.0-37.0) 05/02/17 08:39 RDW 12.6 % (11.5-14.5) 05/02/17 08:39 Plt Count 230 K/uL (130-400) 05/02/17 08:39 MPV 9.7 fL (7.2-11.7) 05/02/17 08:39 Neut % (Auto) 67.5 % (50.0-75.0) 05/02/17 08:39 Lymph % (Auto) 18.5 % (20.0-40.0) L 05/02/17 08:39 Towner % (Auto) 11.1 % (0.0-10.0) H 05/02/17 08:39 Eos % (Auto) 2.2 % (0.0-4.0) 05/02/17 08:39 Baso % (Auto) 0.7 % (0.0-2.0) 05/02/17 08:39 Neut # 6.8 K/uL (1.8-7.0) 05/02/17 08:39 Lymph # 1.8 K/uL (1.0-4.3) 05/02/17 08:39 Towner # 1.1 K/uL (0.0-0.8) H 05/02/17 08:39 Eos # 0.2 K/uL (0.0-0.7) 05/02/17 08:39 Baso # 0.1 K/uL (0.0-0.2) 05/02/17 08:39 ESR 85 mm/hr (0-15) H 04/29/17 06:56 PT 13.9 SECONDS (9.7-12.2) H 04/29/17 06:56 INR 1.2 04/29/17 06:56 APTT 34 SECONDS (21-34) 04/29/17 06:56 Sodium 134 mmol/L (132-148) 05/02/17 08:37 Potassium 4.5 mmol/L (3.6-5.2) 05/02/17 08:37 Chloride 103 mmol/L (98-107) 05/02/17 08:37 Carbon Dioxide 26 mmol/L (22-30) 05/02/17 08:37 Anion Gap 10 (10-20) 05/02/17 08:37 BUN 46 mg/dL (9-20) H 05/02/17 08:37 Creatinine 1.7 mg/dL (0.8-1.5) H 05/02/17 08:37 Est GFR ( Amer) 51 05/02/17 08:37 Est GFR (Non-Af Amer) 42 05/02/17 08:37 POC Glucose (mg/dL) 229 mg/dL (65-110) H 05/03/17 06:24 Random Glucose 282 mg/dL (75-110) H 05/02/17 08:37 Hemoglobin A1c 11.8 % (4.2-6.5) H 04/29/17 06:56 Calcium 8.0 mg/dl (8.6-10.4) L 05/02/17 08:37 Total Bilirubin 0.2 mg/dL (0.2-1.3) 05/02/17 08:37 AST 20 U/L (17-59) 05/02/17 08:37 ALT 26 U/L (21-72) 05/02/17 08:37 Alkaline Phosphatase 112 U/L (38-126) 05/02/17 08:37 Total Protein 6.0 g/dL (6.3-8.3) L 05/02/17 08:37 Albumin 2.9 g/dL (3.5-5.0) L 05/02/17 08:37 Globulin 3.1 gm/dL (2.2-3.9) 05/02/17 08:37 Albumin/Globulin Ratio 0.9 (1.0-2.1) L 05/02/17 08:37 Triglycerides 89 mg/dL (0-149) 04/29/17 06:56 Cholesterol 57 mg/dL (0-199) 04/29/17 06:56 LDL Cholesterol Direct < 30 mg/dL (0-129) 04/29/17 06:56 HDL Cholesterol 20 mg/dL (30-70) L 04/29/17 06:56 Ur Random Creatinine 99.4 mg/dL 04/29/17 16:56 Ur Random Sodium 53 mmol/L 04/29/17 16:56 - Hospital Course Hospital Course: This is a 57 year old male with PMHx diabetes, TX, DVT, HTN, CHF, HLD, Afib who presents complaining of a wound in his right foot. Patient states that his feet are numb bilaterally and he cannot feel any pain there. Patient states that on Wednesday while he was walking in his home, he noticed blood and foul smelling discharge on the floor. Patient examined his feet and noted the wound. Since then, patient has been feeling subjectively feverish intermittently. Patient went to see Dr. Del Toro earlier today where he incised and drained the wound. He then recommended that the patient go to the hospital to be admitted for further evaluation. Patient denies any acute complaint presently stating that his fevers have resolved but does admit to intermittent chills today. Patient was admitted to the hospital for Right Foot wound. Podiatry and infectious Disease were consulted. Patient was started on IV antibiotics ( Tigacycline). Wound cultures were collected and grew coagulase negative staphylococcus. Foot Xray was negative for fracture. Wound was cleaned and dressed by podiatry. Home medications were started. During admission, patient had acute on chronic kidney injury with creatinine of 2.5. Creatinine level was improving. On day of discharge, patient was doing well. Offered no complaints. Denies headaches, dizziness, cp, palpitations, sob, abdominal pain, urinary symptoms, changes in bowel habits. Patient was medically cleared and discharge home with prescription for Zyvox 600mg Q12H x 10 days. Patient instructed to follow up with Podiatry and Dr Dewitt upon discharge. All questions and concerns were addressed. Discharge Exam - Head Exam Head Exam: ATRAUMATIC, NORMAL INSPECTION, NORMOCEPHALIC - Eye Exam Eye Exam: EOMI, Normal appearance Pupil Exam: NORMAL ACCOMODATION - Neck Exam Neck exam: Full Rom - Respiratory Exam Respiratory Exam: Clear to PA & Lateral, NORMAL BREATHING PATTERN, UNREMARKABLE. absent: Rales, Rhonchi, Wheezes - Cardiovascular Exam Cardiovascular Exam: REGULAR RHYTHM, +S1, +S2. absent: Systolic Murmur - GI/Abdominal Exam GI & Abdominal Exam: Normal Bowel Sounds, Soft. absent: Guarding, Rebound, Rigid, Tenderness - Rectal Exam Rectal Exam: Deferred - Extremities Exam Additional comments: Per Podiatry Evaluation: Right lower extremity exam Derm: Open wound noted to plantar aspect of right foot measuring 5cm x 4.5cm x 0.2cm with mostly granular base. No drainage or malodor noted. Erythema noted around wound, mild.No probe to bone. Vasc: Non-palpable DP and PT noted. CFT <3 seconds to all digits Neuro: Gross sensation diminished Ortho: No pain on palpation to right foot plantar aspect secondary to neuropathy - Neurological Exam Neurological exam: Alert, Normal Gait, Oriented x3 - Psychiatric Exam Psychiatric exam: Normal Affect, Normal Mood - Skin Skin Exam: Normal Color, Warm Discharge Plan - Discharge Medications Prescriptions: Linezolid [Zyvox] 600 mg PO Q12H 10 Days #20 tab - Follow Up Plan Condition: STABLE Disposition: HOME/ ROUTINE Instructions: Linezolid (By mouth), Heart Failure (DC), Pacemaker (DC), Pulmonary Embolism (DC), Pulmonary Edema (DC), Wound Infection (DC), Cellulitis (DC), Deep Venous Thrombosis (DC), Diabetic Foot Care (DC), Diabetes Mellitus Type 2 in Adults (DC), Ascites (DC), Dyspnea (GEN), Hypertension (DC) Additional Instructions: 1. Continue Linezolid 600mg PO Q12H x 10 days 2. F/U with Podiatry within 1 week 3. F/U with Dr Dewitt within 1-2 weeks 4. Continue home medications as prescribed 5. Increase PO hydration Referrals: Sylvester Del Toro DPM [Doctor Podiatric Medicine] - Rene Dewitt Jr., MD [Medical Doctor] -
[2017-05-03] MEDS ORDERED: oxyCODONE 10 mg ER Tab (oxyCONTIN) PO SCH (10:00)
[2017-05-03 10:10] LABS: BASO # 0.1 K/uL (0.0-0.2); BASO % 0.7 % (0.0-2.0); EOS # 0.2 K/uL (0.0-0.7); EOS % 2.2 % (0.0-4.0); HEMOGLOBIN 10.2 g/dL (12.0-18.0); LYMPH # 1.5 K/uL (1.0-4.3); LYMPH % 14.9 % (20.0-40.0); MEAN CELL VOLUME 86.5 fL (80.0-94.0); MEAN CORPUSCULAR HEMOGLOBIN 28.9 pg (27.0-31.0); MEAN CORPUSCULAR HGB CONC 33.4 g/dL (33.0-37.0); MEAN PLATELET VOLUME 9.3 fL (7.2-11.7); MONO # 1.1 K/uL (0.0-0.8); MONO % 11.1 % (0.0-10.0); NEUT # 6.9 K/uL (1.8-7.0); NEUT % 71.1 % (50.0-75.0); NRBC % 0.1 % (0.0-2.0); RBC 3.53 Mil/uL (4.40-5.90); RED CELL DISTRIBUTION WIDTH 12.5 % (11.5-14.5); WHITE BLOOD COUNT 9.8 K/uL (4.8-10.8)
[2017-05-03 11:05] LABS: ALB/GLOB RATIO 0.9 (1.0-2.1); ALBUMIN 2.8 g/dL (3.5-5.0); CALCIUM 8.1 mg/dl (8.6-10.4)
--- NOTE | 2017-05-03 16:40 | PN ---
DATE: SUBJECTIVE: This is a followup podiatry visit for an evaluation of an ulcer on the plantar aspect of the right foot. The patient was seen last week in my office with aggressive cellulitis due to an ulcer on the plantar aspect of the right foot. At that time, it was debrided of all necrotic tissue and patient was stressed to be admitted for IV antibiotic therapy. Today, we see him alert, oriented x3, wanting to go home, suggesting to the patient that IV antibiotics on an outpatient basis at a subacute facility would probably be the best course to proceed with. The patient is not agreeable to those options. Also, I had suggested last week that a forefoot nonweightbearing heel shoe, which the patient has in his home be brought back to the hospital, so physical therapy can institute partial weightbearing on the right heel and keep the right forefoot suspended over the weightbearing surface. As of this morning, that shoe has not appeared. He does state, however, he still has it at home and his will be bringing it. ASSESSMENT AND PLAN: My impression of this patient is early Charcot disease with plantar ulceration of the right foot which has not been introduced into the metatarsals; however, due to the nature of the disease process, this is a high likelihood. The patient is instructed for local wound care at home, which he does too. To be on the lookout for any increase in cellulitis, which would warrant more aggressive IV antibiotic therapy. We will be following up with the patient. I have instructed him to call and stay in contact with me as needed. Sylvester Juarez DPM
== END 2017-05-03 12:05 | disposition home or self-care (01) | DRG 638 ==
LOC: C.ER 18:29 → C.9E 22:07 → C.5S 23:12
PROVIDERS: ADMIT Internal Medicine; ATTEND Internal Medicine
DX: E11.621 Type 2 diabetes mellitus with foot ulcer (principal); L03.115 Cellulitis of right lower limb; L97.519 Non-pressure chronic ulcer of other part of right foot with unspecified severity; N17.9 Acute kidney failure, unspecified; E11.22 Type 2 diabetes mellitus with diabetic chronic kidney disease; E11.42 Type 2 diabetes mellitus with diabetic polyneuropathy; I13.0 Hypertensive heart and chronic kidney disease with heart failure and stage 1 through stage 4 chronic kidney disease, or unspecified chronic kidney disease; E11.628 Type 2 diabetes mellitus with other skin complications; E11.610 Type 2 diabetes mellitus with diabetic neuropathic arthropathy; E78.00 Pure hypercholesterolemia, unspecified; E11.65 Type 2 diabetes mellitus with hyperglycemia; N18.9 Chronic kidney disease, unspecified; F17.200 Nicotine dependence, unspecified, uncomplicated; G89.4 Chronic pain syndrome; I25.10 Atherosclerotic heart disease of native coronary artery without angina pectoris; I48.91 Unspecified atrial fibrillation; B95.7 Other staphylococcus as the cause of diseases classified elsewhere; I50.9 Heart failure, unspecified; Z79.899 Other long term (current) drug therapy; Z80.3 Family history of malignant neoplasm of breast; Z86.711 Personal history of pulmonary embolism; Z79.82 Long term (current) use of aspirin; Z79.4 Long term (current) use of insulin; Z79.01 Long term (current) use of anticoagulants; I25.2 Old myocardial infarction; Z86.718 Personal history of other venous thrombosis and embolism; Z89.412 Acquired absence of left great toe

== ENCOUNTER 2018-03-15 15:07 | Emergency (ER) | payer MEDICARE ==
[2018-03-15 15:07] VITALS: BMI 29.5
[2018-03-15] MEDS ORDERED: Aspirin 325 mg EC Tablets PO STA (15:18)
[2018-03-15] MEDS ORDERED: Nitroglycerin 2% Ointment Foilpak UD TOP STA (15:18)
[2018-03-15] MEDS ORDERED: Sodium Chloride 0.9% 1,000 ML IV ONE (15:18)
--- NOTE | 2018-03-15 15:18 | C.PDOC ---
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 PS SUDDEN ONSET WHILE SITTING, NON EXERTIONAL. "FELT LIKE I WAS HAVING A HEART ATTACK AGAIN". PS HO PRIOR SVT, AMI S/P CARDIAC CATH "BUT NO STENTS WERE NEEDED". PER EMS, PT IN SVT. MOD IMPROVE W VASOVAGAL MEASURES. S/P IVF, NOW IN NSR. PS FEELS BETTER THAN BEFORE ONLY W RESIDUAL CHEST SORENESS. EXAM MILD DIST NONTOXIC HEENT NEG LUNGS CTA B/L NO W/R/R NO RETRACTIONS SPEAKING FULL SENTENCES CV RRR ABD NEG SKIN WARM DRY; DFU R FOOT NO EDEMA Time Seen by Provider: 03/15/18 15:13 History Per: Patient History/Exam Limitations: no limitations Onset/Duration Of Symptoms: Hrs Current Symptoms Are (Timing): Still Present Severity: Moderate Past Medical History Reviewed: Historical Data, Nursing Documentation, Vital Signs - Medical History PMH: Arthritis, Back Problems, Cardia Arrhythmia, CHF, Diabetes, Fractures (left knee 1974), HTN, Hypercholesterolemia, Hyperlipidemia, Peripheral Edema (ble +2 pitting), Pulmonary Embolism (CT SCAN 03/11/17-LEFT LOWER LOBE) Denies: Chronic Kidney Disease Other Surgeries: Hx of surgeries - Drawn to Scale Procedures CENTRAL VENOUS CATHETER PLACEMENT WITH GUIDANCE (08/01/13) DETACHMENT AT LEFT 1ST TOE, COMPLETE, OPEN APPROACH (10/22/16) GAIT TRAINING/FUNCTIONAL AMBULATION TREATMENT (02/06/18) HOME MANAGEMENT TREATMENT (02/06/18) INSERTION OF INFUSION DEV INTO SUP VENA CAVA, PERC APPROACH (08/14/17) INTRODUCE OF OXAZOLIDINONES INTO PERIPH VEIN, PERC APPROACH (02/06/18) LOC EXC BONE LESION NEC (08/30/13) LOC EXC LES METATAR/TAR (08/01/13) METATAR/TAR SEQUESTREC (08/01/13) NONEXCIS DEBRID OF WOUND, INFECT, OR BURN (08/30/13) TOT OSTECT-METATARS/TARS (05/04/13) ULTRASONOGRAPHY OF RIGHT JUGULAR VEINS, GUIDANCE (08/14/17) Family History: States: No Known Family Hx - Social History Hx Tobacco Use: Yes (light smoker) Hx Alcohol Use: No Hx Substance Use: No (over 17 years ago) - Immunization History Hx Tetanus Toxoid Vaccination: Yes Hx Influenza Vaccination: Yes Hx Pneumococcal Vaccination: Yes Review Of Systems Except As Marked, All Systems Reviewed And Found Negative. Constitutional: Negative for: Fever, Chills Cardiovascular: Positive for: Chest Pain, Palpitations Respiratory: Positive for: Shortness of Breath Gastrointestinal: Negative for: Nausea, Vomiting Physical Exam - Physical Exam Appears: Non-toxic, Other (mild distress) Skin: Warm, Dry, Other (DFU to right foot, no edema) Head: Atraumatic, Normacephalic Eye(s): bilateral: Normal Inspection Nose: Normal Oral Mucosa: Moist Cardiovascular: Rhythm Regular (RRR) Respiratory: Normal Breath Sounds, No Rales, No Rhonchi, No Wheezing, Other (no retractions, speaking in full sentences) Gastrointestinal/Abdominal: Normal Exam, Soft, No Tenderness, No Guarding, No Rebound Extremity: Normal ROM Neurological/Psych: Oriented x3, Normal Speech ED Course And Treatment - Laboratory Results Result Diagrams: 03/15/18 15:24 03/15/18 15:24 ECG: Interpreted By Me ECG Rhythm: Sinus Tachycardia Rate From EC O2 Sat by Pulse Oximetry: 100 (RA) Pulse Ox Interpretation: Normal - Radiology CXR: Interpreted by Me, Viewed By Me CXR Interpretation: Yes: No Acute Disease Progress - Re-Evaluation Re-evaluation Note: 03/15/18 16:19 IMPROVED COMPARED TO PRIOR EXAM. VSS HR NSR 90-100 NARD 100% RA. PT AND FAMILY ADVISED ADMISSION. The patient declines admission to the hospital and wishes to leave the Emergency Department. This action is against my medical advice. This decision was made with informed refusal. The patient was told that admission to the hospital is necessary. Explanation of the reasons why were discussed. The risks of leaving were explained to the patient and include, but are not limited to, worsening of known or currently unknown conditions, permanent disability and from undiagnosed or untreated conditions. The patient has the capacity to make this informed decision and understands my explanation of the current medical problem and risks of leaving. The patient voluntarily accepts these risks and signed an AMA form documenting our conversation. The patient was given the opportunity to ask questions and reconsider. The patient was encouraged to return to the Emergency Department at any time for fur ther care. D/W DR DEWITT AGREES W ADMISSION. PS WILL FU W PMD TOMORROW. PMD AWARE. - Data Reviewed Data Reviewed: Lab, Diagnostic imaging, EKG, Old records - Critical Care Citical Care: Excluding Proc Time Critical Care Time: 90 minutes Medical Decision Making Medical Decision Making: Plan: --Labs --ECG --CXR --Aspirin PO --Toradol IV --IV Fluids Disposition Counseled Patient/Family Regarding: Studies Performed, Diagnosis, Need For Followup - Disposition Referrals: Rene Dewitt Jr., MD [Medical Doctor] - Disposition: AGAINST MEDICAL ADVICE Disposition Time: 16:20 Condition: IMPROVED Additional Instructions: YOU HAVE BEEN ADVISED OF THE NEED FOR FURTHER TESTING OF YOUR EMERGENCY MEDICAL CONDITION. YOU HAVE BEEN ADVISED THE RISKS OF LEAVING INCLUDING DISABILITY, DETERIORATION AND . YOU HAVE STATED VERBAL UNDERSTANDING AND WISH TO PROCEED TO LEAVE AGAINST MEDICAL ADVICE. FOLLOW UP WITH YOUR PMD THAI. RETURN IF WORSENING SYMPTOMS. Instructions: Chest Pain (DC), Leaving Against Medical Advice - Clinical Impression Clinical Impression: Chest pain, Tachycardia - Scribe Statement The provider has reviewed the documentation as recorded by the Noel Villagomez Provider Attestation: All medical record entries made by the Juveibrosemarie were at my direction and personally dictated by me. I have reviewed the chart and agree that the record accurately reflects my personal performance of the history, physical exam, medical decision making, and the department course for this patient. I have also personally directed, reviewed, and agree with the discharge instructions and disposition.
[2018-03-15] MEDS ORDERED: Nitroglycerin 2% Ointment Foilpak UD TOP ONE (15:28)
[2018-03-15] MEDS ORDERED: Aspirin 325 mg EC Tablets PO ONE (15:28)
[2018-03-15] MEDS ORDERED: Sodium Chloride 0.9% 1,000 ML ONE (15:28)
[2018-03-15 15:29] LABS: BASO # 0.1 K/uL (0.0-0.2); BASO % 0.7 % (0.0-2.0); EOS # 0.1 K/uL (0.0-0.7); EOS % 1.4 % (0.0-4.0); HEMOGLOBIN 9.9 g/dL (12.0-18.0); LYMPH # 1.5 K/uL (1.0-4.3); LYMPH % 16.7 % (20.0-40.0); MEAN CELL VOLUME 87.7 fL (80.0-94.0); MEAN CORPUSCULAR HEMOGLOBIN 30.3 pg (27.0-31.0); MEAN CORPUSCULAR HGB CONC 34.6 g/dL (33.0-37.0); MEAN PLATELET VOLUME 10.3 fL (7.2-11.7); MONO # 0.8 K/uL (0.0-0.8); MONO % 8.9 % (0.0-10.0); NEUT # 6.6 K/uL (1.8-7.0); NEUT % 72.3 % (50.0-75.0); RBC 3.26 Mil/uL (4.40-5.90); RED CELL DISTRIBUTION WIDTH 14.8 % (11.5-14.5); WHITE BLOOD COUNT 9.2 K/uL (4.8-10.8)
[2018-03-15 15:38] LABS: INR 1.4; PARTIAL THROMBOPLASTIN TIME 30 SECONDS (21-34)
[2018-03-15 15:46] LABS: ALB/GLOB RATIO 1.2 (1.0-2.1); ALBUMIN 3.6 g/dL (3.5-5.0); ALT/SGPT 23 U/L (21-72); AST/SGOT 22 U/L (17-59); BLOOD UREA NITROGEN 47 mg/dL (9-20); CALCIUM 8.7 mg/dl (8.6-10.4); GFR NON-AFRICAN AMERICAN 27
[2018-03-15 15:47] LABS: D DIMER < 200 ng/mlDDU (0-243)
--- NOTE | 2018-03-15 16:31 | RAD ---
Date of service: 03/15/2018 PROCEDURE: CHEST RADIOGRAPH, 1 VIEW HISTORY: chest pain COMPARISON: 11/26/2017 FINDINGS: LUNGS: Clear. PLEURA: No pneumothorax or pleural fluid seen. CARDIOVASCULAR: No aortic atherosclerotic calcification present. No radiographic findings to suggest acute or significant cardiovascular disease. OSSEOUS STRUCTURES: No significant abnormalities. VISUALIZED UPPER ABDOMEN: Normal. OTHER FINDINGS: None. IMPRESSION: No active disease. No acute/significant interval changes.
[2018-03-15 16:44] VITALS: PULSE 98; RESP 22; TEMP 98
[2018-03-15 16:47] VITALS: BP 139/79
[2018-03-15 17:00] VITALS: O2SAT 100
--- NOTE | 2018-03-17 07:32 | CARD ---
APPROVED REPORT Date of service: 03/15/2018 EKG Measurement Heart [id number] VT [id number] <Conclusion> Sinus tachycardia Otherwise normal ECG
== END 2018-03-15 16:53 | disposition left against medical advice (07) ==
LOC: C.ER 15:07
DX: R07.9 Chest pain, unspecified (principal); R00.0 Tachycardia, unspecified
CPT/HCPCS: 71045; 80053; 84484; 85025; 85378; 85610; 85730; 93005; 96361; 96374; 99285; J1885; J7030